=== PATIENT | male | born 1975 | race Caucasian/White ===

== ENCOUNTER 2019-08-02 11:40 | Outpatient (CLI) | payer SELFPAY ==
--- NOTE | 2019-08-02 11:45 | XR_ITS ---
WS: [id number] LUMBAR SPINE: 3 VIEWS TECHNIQUE: AP, lateral and L5-S1 spot. HISTORY: low back and leg pain COMPARISON: None available. Posterior lumbar vertebral bodies demonstrate mild straightening and loss of the normal lordosis. Mod erate endplate osteophytes and hypertrophic bone changes. Facet arthropathy at L5-S1. No fractures or bone destruction. Mild narrowing of the LEFT SI joint. XR/XR lumbar spine 2-3V* [id number] IMPRESSION: 1. Facet joint arthropathy at L5-S1 is moderate. 2. No vertebral body fracture. 3. Moderate spondylosis.
== END 2019-08-02 11:41 | disposition home or self-care (01) ==
LOC: RAD 11:42 → WPI 11:43
PROVIDERS: PCP Registered Nurse; Visit Provider Registered Nurse
DX: M47.896 Other spondylosis, lumbar region (principal); M54.5 Low back pain
CPT/HCPCS: 72100; 80053; 80061; 82306; 82607; 84443; 85025

== ENCOUNTER 2022-05-06 10:25 | Inpatient (IN) | payer MEDICAID, SELFPAY ==
[2022-05-06] VITALS (12 sets, daily range): BP systolic 110–181; BP diastolic 70–103; PULSE 83–103; RESP 16–18; TEMP 36.1–36.9; O2SAT 93–98; BMI 55.9
--- NOTE | 2022-05-06 11:49 | ED_ITS ---
HPI - General Adult General: Chief complaint: Abdominal Pain Stated complaint: abd pain, n/v Time Seen by Provider: 05/06/22 11:38 History of Present Illness: Patient is a 47-year-old male with history obesity, HTN presenting to emergency with complaints of midepigastric abdominal pain since 10 AM this morning. Patient states that he has had intermittent burning pain in the abdomen since then. Patient reports significant nausea, diaphoresis with multiple episodes of vomiting earlier today.. Patient denies any hemoptysis, diarrhea, melena hematochezia. Patient has no acute complaints. Denies any exertional chest pain or dyspnea, cough, runny nose sore throat fever or chills. Patient has no prior abdominal surgeries. Patient denies any history of renal colic. Onset:10am Duration:ongoing Location:home Severity:moderate Associated symptoms: Reports nausea and vomiting; Deny chest pain, dyspnea, rash or palpitations Review of Systems Const: Reports: other (+diaphoresis and clamminess); Denies: fever(s) or chills Eyes: Denies: change in vision ENMT: Denies: mouth pain Card: Denies: chest pain or palpitations Resp: Denies: dyspnea or non-productive cough GI: Reports: abdominal pain (+midepigastric abd pain), nausea and vomiting; Denies: diarrhea : Denies: dysuria Musc: Denies: extremity pain Skin/Breast: Denies: rash or new lesions Neuro: Denies: weakness in extremities Psych: Reports: other (Normal mood) Brandon/Lymph: Denies: easy bruising PFSH ED PFSH: Medical History (Updated 05/06/22 @ 17:04 by Spenser Gibbons MD) Bronchitis Chronic fatigue disorder Chronic low back pain with sciatica Hypertension Insomnia Major depressive disorder, recurrent, in partial remission Post-traumatic stress disorder, chronic Psychiatric care Surgical History (Updated 05/06/22 @ 17:04 by Spenser Gibbons MD) No pertinent past surgical history Family History Grandfather Stroke Mother Heart problem Mother CHF (congestive heart failure) Social History Smoking and tobacco status: never smoked Second hand smoke exposure: No Alcohol intake: current Alcohol intake frequency: holidays/special occasions only Physical Exam Const: COMMON NORMALS: alert HENMT: COMMON NORMALS: atraumatic HEAD & SCALP: atraumatic MOUTH: moist mucous membranes not abnormal Eye: COMMON NORMALS: EOMs intact bilaterally and conjunctivae normal CONJUNCTIVA: Yes conjunctivae normal Neck/C-Spine: COMMON NORMALS: full ROM and supple Resp: COMMON NORMALS: normal respiratory effort and clear to auscultation bilaterally AUSCULTATION: clear to auscultation bilaterally Cardio: COMMON NORMALS: regular rate RATE: regular rate GI: COMMON NORMALS: Soft to palpation PALPATION: Yes Soft to palpation OTHER: +mild midepigastric TTP. NO guarding rebound, guarding, rigidity. No CVA tenderness to percussion. Neg Cruz/Neg McBurney's point tenderness, no suprabupic tenderness to palpation. Extremity: COMMON NORMALS: full ROM Neuro: SENSORIUM/ORIENTATION: Yes alert MOTOR EXAM: No Abnormal motor strength present and Other motor observations present (no focal motor deficits) Psych: COMMON NORMALS: speech normal SPEECH: Yes normal speech MOOD & AFFECT: Yes euthymic mood Course Vital Signs: Vital signs: Vital Signs Temperature 97.0 F L 05/06/22 10:30 Pulse Rate 97 05/06/22 15:00 Respiratory Rate 17 05/06/22 15:00 Blood Pressure 174/99 05/06/22 15:00 Pulse Oximetry 95 05/06/22 15:00 Oxygen Delivery Me thod 05/06/22 15:00 MDM - General Adult Medical Decision Making Patient is a 47-year-old male with history obesity, HTN presenting to emergency with complaints of midepigastric abdominal pain since 10 AM this morning associated with diaphoresis, nausea and vomiting. On exam, patient has mild epigastric area tenderness palpation. EKG did not show any signs of ischemia. Initial troponin of 23 with a delta <5. Pain improved proved with morphine and nausea with zofran. I performed shared decision making with patient however patient would like to be admitted to hospital for angina-equivalence workup. Disposition: admission Lab Data : 05/06/22 12:10 05/06/22 12:10 Laboratory Results WBC 10.0 10^3/uL (4.0-10.0) 05/06/22 12:10 RBC 5.18 10^6/uL (4.1-5.3) 05/06/22 12:10 Hgb 14.8 g/dL (11.7-16.6) 05/06/22 12:10 Hct 45.3 % (42.0-52.0) 05/06/22 12:10 MCV 87.5 fl (80-94) 05/06/22 12:10 MCH 28.6 pg (28.0-34.0) 05/06/22 12:10 MCHC 32.7 g/dL (30.0-36.0) 05/06/22 12:10 RDW 13.6 % (12.1-15.1) 05/06/22 12:10 Plt Count 193 10^3/cmm (130-400) 05/06/22 12:10 MPV 11.5 fL (7.4-10.4) H 05/06/22 12:10 Neut % (Auto) 88.2 % 05/06/22 12:10 Lymph % (Auto) 7.8 % 05/06/22 12:10 [place] % (Auto) 2.5 % 05/06/22 12:10 Eos % (Auto) 0.3 % 05/06/22 12:10 Baso % (Auto) 0.7 % 05/06/22 12:10 Neut # (Auto) 8.83 10^3/uL (1.8-7.7) H 05/06/22 12:10 Lymph # (Auto) 0.8 10^3/uL (0.8-4.8) 05/06/22 12:10 [place] # (Auto) 0.3 10^3/uL (0.2-0.9) 05/06/22 12:10 Eos # (Auto) 0.0 10^3/uL (0.0-0.8) 05/06/22 12:10 Baso # (Auto) 0.1 10^3/uL (0.0-0.1) 05/06/22 12:10 Nucleated RBC % (auto) 0 % 05/06/22 12:10 Nucleated RBCs # 0.0 /100WBC 05/06/22 12:10 Sodium 138 mmol/L (136-145) 05/06/22 12:10 Potassium 4.6 mmol/L (3.5-5.1) 05/06/22 12:10 Chloride 100 mmol/L (98-107) 05/06/22 12:10 Carbon Dioxide 26 mmol/L (22-29) 05/06/22 12:10 Anion Gap 16.6 (5-19) 05/06/22 12:10 BUN 11 mg/dL (6-20) 05/06/22 12:10 Creatinine 0.8 mg/dL (0.7-1.2) 05/06/22 12:10 GFR Calculation 103.2 mL/min (90-130) 05/06/22 12:10 Glucose 132 mg/dL (65-115) H 05/06/22 12:10 Calculated Osmolality 287 mOsm/kg (285-295) 05/06/22 12:10 Calcium 9.3 mg/dL (8.5-10.5) 05/06/22 12:10 Total Bilirubin 0.4 mg/dL (0.15-1.2) 05/06/22 12:10 AST 13 U/L (0-40) 05/06/22 12:10 ALT 16 U/L (0-41) 05/06/22 12:10 Alkaline Phosphatase 59 U/L (40-130) 05/06/22 12:10 Troponin T Baseline 23 ng/L (0-15) H 05/06/22 12:10 Troponin T 120 Minute 23.41 ng/L (0-15) H 05/06/22 14:52 Delta Troponin T 0.41 ABS# (0-10) 05/06/22 14:52 Total Protein 7.3 g/dL (6.6-8.7) 05/06/22 12:10 Albumin 4.4 g/dL (3.5-5.2) 05/06/22 12:10 Globulin 2.9 g/dL (1.3-4.6) 05/06/22 12:10 Lipase 131 U/L (13-60) H 05/06/22 12:10 Urine Color Yellow (Yellow) 05/06/22 13:55 Urine Appearance Clear (CLEAR) 05/06/22 13:55 Urine pH 7 (5-7) 05/06/22 13:55 Ur Specific [place] 1.010 (1.005-1.030) 05/06/22 13:55 Urine Protein Trace (Negative) 05/06/22 13:55 Urine Glucose (UA) Norm (Normal) 05/06/22 13:55 Urine Ketones 2+ (Negative) H 05/06/22 13:55 Urine Blood Neg (Negative) 05/06/22 13:55 Urine Nitrate Negative (Negative) 05/06/22 13:55 Urine Bilirubin Neg (Negative) 05/06/22 13:55 Urine Urobilinogen Neg mg/dL (Negative) 05/06/22 13:55 Ur Leukocyte Esterase Negative (Negative) 05/06/22 13:55 Urine RBC None /hpf (0-2) 05/06/22 13:55 Urine WBC None /hpf (0-5) 05/06/22 13:55 Ur Squamous Epith Cells None /hpf (0-5) 05/06/22 13:55 Amorphous Sediment Not Reportable 05/06/22 13:55 Urine Bacteria None /hpf (NONE) 05/06/22 13:55 Urine Mucus 1+ /hpf 05/06/22 13:55 Discharge Plan Discharge Patient Disposition: Admitted As Inpatient Clinical Impression: Abdominal pain, Nausea & vomiting, Diaphoresis, Morbid obesity Condition: Stable Discharge Diet: Advance as tolerated Discharge Activity: Increase activity as tolerated Coding Level of Care Code ED Vp Director Of Creative Strategy for [place] Fwd Exam Comprehensive
[2022-05-06 12:16] LABS: Basophils # 0.1 10^3/uL (0.0-0.1); Basophils % 0.7 %; Eosinophils % 0.3 %; Hematocrit 45.3 % (42.0-52.0); Hemoglobin 14.8 g/dL (11.7-16.6); Lymphocytes # 0.8 10^3/uL (0.8-4.8); Lymphocytes % 7.8 %; Mean Corpuscular HGB Conc 32.7 g/dL (30.0-36.0); Mean Corpuscular Hemoglobin 28.6 pg (28.0-34.0); Mean Corpuscular Volume 87.5 fl (80-94); Mean Platelet Volume 11.5 fL (7.4-10.4); Monocytes # 0.3 10^3/uL (0.2-0.9); Monocytes % 2.5 %; Neutrophils # 8.83 10^3/uL (1.8-7.7); Neutrophils % 88.2 %; Nucleated Red Blood Cells % 0 %; Platelet Count 193 10^3/cmm (130-400); Red Blood Count 5.18 10^6/uL (4.1-5.3); Red Cell Distribution Width 13.6 % (12.1-15.1)
[2022-05-06] MEDS: lidocaine 2% viscous 15 ML, aluminum-mag hydrox-simethicon 30 ML, sucralfate oral liq 1 GM PO (12:36)
[2022-05-06 12:37] LABS: Troponin(5th) Baseline 23 ng/L (0-15)
[2022-05-06 12:39] LABS: Alanine Aminotransferase 16 U/L (0-41); Albumin Level 4.4 g/dL (3.5-5.2); Alkaline Phosphatase 59 U/L (40-130); Anion Gap 16.6 (5-19); Aspartate Amino Transferase 13 U/L (0-40); Blood Urea Nitrogen 11 mg/dL (6-20); Calcium 9.3 mg/dL (8.5-10.5); Carbon Dioxide 26 mmol/L (22-29); Chloride 100 mmol/L (98-107); Globulin 2.9 g/dL (1.3-4.6); Glomerular Filtration Rate 103.2 mL/min (90-130); Glucose 132 mg/dL (65-115); Lipase 131 U/L (13-60); Osmolality Calculated 287 mOsm/kg (285-295); Potassium 4.6 mmol/L (3.5-5.1); Sodium 138 mmol/L (136-145); Total Bilirubin 0.4 mg/dL (0.15-1.2); Total Protein 7.3 g/dL (6.6-8.7)
[2022-05-06] MEDS: sodium chloride 0.9% 1,000 ML 999 ML IV (12:57)
[2022-05-06] MEDS: ondansetron 2 mg/ML SDV 2 mL 4 MG IVP (12:58)
[2022-05-06] MEDS: famotidine 20 mg/2 mL INJ IVP (12:58)
--- NOTE | 2022-05-06 14:00 | ECG_ITS ---
[facility] Test Date: 2022-05-06 Pat Name: Abilio Adams Department: Room: Gender: Male [employer]: : 1975 Requested By: Shahana Bernard Order Number: [id number] Ron MD: Sonia Zapien M.D. Measurements Intervals Snyder Rate: 97 P: 14 NH: 172 QRS: 78 QRSD: 103 T: 55 QT: 345 QTc: 440 Interpretive Statements SINUS RHYTHM POSSIBLE LEFT ATRIAL ENLARGEMENT [-0.1mV P-WAVE IN V1/V2] NONSPECIFIC T-WAVE ABNORMALITY No previous ECG available for comparison Electronically Signed On 05-06-2022 20:57:05 CDT by Sonia Zapien M.D. [id number]
[2022-05-06 14:06] LABS: Add Urine Microscopic? YES; Bilirubin Urine Neg (Negative); Blood Urine Neg (Negative); Glucose Urine UA Norm (Normal); Ketones Urine 2+ (Negative); Leukocyte Esterase Urine Negative (Negative); Nitrate Urine Negative (Negative); Protein Urine Trace (Negative); Urine Appearance Clear (CLEAR); Urine Color Yellow (Yellow); Urobilinogen Urine Neg (Negative); pH Urine 7 (5-7)
[2022-05-06 14:15] LABS: Add Urine Culture? No; Mucus Urine 1+ /hpf
[2022-05-06] MEDS: morphine 4 mg/mL SDV 1 mL IVP (14:35)
[2022-05-06 15:43] LABS: Troponin 5 2HR 23.41 ng/L (0-15)
[2022-05-06 15:44] LABS: Troponin 5 2HR Delta 0.41 ABS# (0-10)
--- NOTE | 2022-05-06 16:46 | PM.HP ---
Providers/Chief Complaint Primary Care Provider: PETROS Mo Chief Complaint: abd pain, n/v History of Present Illness Abilio Adams is a 47 year old male with history of GERD, morbid obesity, no history of CHF, coronary disease presented today for chief complaint of epigastric pain. Patient is stating that he ate to his floor last night and this morning he woke up with epigastric pain, he broke into sweat with his pain, his pain was achy in nature and epigastric region he would not call with chest pain it was not associated with shortness of breath however he had 3 episodes of emesis and 1 episode of diarrhea. No one else is sick at home he has not eaten out. No recent fever or COVID-related symptoms. He is not vaccinated. His symptoms persisted until he received GI cocktail in the ER and famotidine he also received 1 L normal saline Hospitalist has been requested to evaluate him for chest pain however patient is not complaining of any pain at all his troponins are not showing any significant delta EKG unremarkable D-dimer unremarkable Review of Systems Const: Denies: fever(s) Eyes: Denies: change in vision ENMT: Denies: throat pain Card: Denies: chest pain Resp: Denies: dyspnea GI: Reports: nausea, vomiting and diarrhea : Denies: flank pain Musc: Denies: neck pain Skin/Breast: Denies: rash Neuro: Denies: headache(s) Psych: Denies: anxiety Endo: Denies: polyuria Brandon/Lymph: Denies: easy bruising All/Imm: Denies: urticaria Medications/Allergies Home Medications Medication Instructions Recorded Confirmed Last Taken Type buspirone 15 mg tablet 15 mg PO BID #60 tabs 03/22/22 05/06/22 Unknown Rx acetaminophen 500 mg tablet 500 mg PO Q6H PRN pain 5 days #20 05/06/22 Unknown Rx tabs calcium carbonate 1,000 1 tab PO TID PRN abdominal pain 7 05/06/22 Unknown Rx mg-simethicone 60 mg chewable days #21 tabs tablet (Maalox Advanced) famotidine 20 mg tablet (Pepcid) 20 mg PO BID PRN abdominal pain 10 05/06/22 Unknown Rx days #20 tabs jdxhyefu-khl-iazzr acid 300 1 tab PO DAILY 05/06/22 05/06/22 Unknown History mcg-lycopene 600 mcg-lutein 300 mcg tablet (Centrum Silver Men) ondansetron 4 mg disintegrating 4 mg PO TID PRN nausea and 05/06/22 Unknown Rx tablet vomiting 4 days #12 tabs sertraline 100 mg tablet 200 mg PO QAM 05/06/22 05/06/22 Unknown History Allergies Allergy/AdvReac Type Severity Reaction Status Date / Time No Known Allergies Allergy Verified 05/06/22 12:17 PFSH Acute PFSH: Medical History (Updated 05/06/22 @ 17:04 by Spenser Gibbons MD) Bronchitis Chronic fatigue disorder Chronic low back pain with sciatica Hypertension Insomnia Major depressive disorder, recurrent, in partial remission Post-traumatic stress disorder, chronic Psychiatric care Surgical History (Updated 05/06/22 @ 17:04 by Spenser Gibbons MD) No pertinent past surgical history Family History Grandfather Stroke Mother Heart problem Mother CHF (congestive heart failure) Social History Smoking and tobacco status: never smoked Second hand smoke exposure: No Alcohol intake: current Alcohol intake frequency: holidays/special occasions only Vitals/I&O/Wt Last Vital Signs Temp 97.0 F L 05/06/22 10:30 Pulse 97 05/06/22 15:00 Resp 17 05/06/22 15:00 BP 174/99 05/06/22 15:00 Pulse Ox 95 05/06/22 15:00 O2 Del Method 05/06/22 15:00 Weight last 48 hrs Weight 176.901 kg Physical Exam Narrative: Morbidly obese male Currently hemodynamic stable No active chest pain Abdomen soft Morbidly obese no currently on room air Awake and alert Nonfocal neuro exam Pleasant cooperative No signs of edema Patient is comfortable in his bed Looks well-hydrated at the bedside Data : 05/06/22 12:10 05/06/22 12:10 A&P Assessment and plan (1) Abdominal pain: (2) Nausea & vomiting: (3) Diaphoresis: (4) Morbid obesity: (5) Hypertension: Qualifiers: Hypertension type: essential hypertension Qualified Code(s): I10 - Essential (primary) hypertension Plan Viral gastroenteritis Troponin stable at 23 No significant delta EKG unremarkable We will give him Protonix 40 mg IV twice daily Check echo for any wall motion abnormality plan to discharge him tomorrow if clinically remains stable EKG unremarkable, D-dimer unremarkable Lipase 731, check triglyceride Essential hypertension I will add chlorthalidone and lisinopril Regular diet DVT prophylaxis Lovenox Full code Discharge tomorrow Attestations Medical Necessity Statement*: Anticipating discharge within 48 hours Time Spent in Patient Care: 40 Coding Level of Care Code Acute Air Conditioning Coil Assembler for Chg Fwd Diagnoses Abdominal pain R10.9 Nausea & vomiting R11.2 Diaphoresis R61 Morbid obesity E66.01 Hypertension I10 Hypertension type: essential hypertension
--- NOTE | 2022-05-06 16:52 | XR_ITS ---
WS: [id number] Portable AP upright chest, 05/06/2022 Clinical Data: abd pain Comparison: Portable chest, 03/21/2012. Findings: No nodules, masses or effusions are seen. The heart is slightly enlarged. The pulmonary vas cularity is not increased. No pneumonia or pneumothorax is seen. The aortic arch and descending thora cic aorta show mild tortuosity. XR/XR chest 1V portable [id number] Impression: Cardiomegaly and atherosclerosis.
--- NOTE | 2022-05-06 17:09 | CTR_ITS ---
PROCEDURE INFORMATION: Exam: CT Abdomen And Pelvis Without Contrast Exam date and time: 05/06/2022 6:27 PM Age: 47 years old Clinical indication: Pain; Other: Below sternum; Additional info: Epi pain today only TECHNIQUE: Imaging protocol: Computed tomography of the abdomen and pelvis without contrast. Radiation optimization: All CT scans at this facility use at least one of these dose optimization techniques: automated exposure control; mA and/or kV adjustment per patient size (includes targeted exams where dose is matched to clinical indication); or iterative reconstruction. COMPARISON: CR XR chest 1V portable [id number] 05/06/2022 5:02 PM RADIATION DOSE METRICS: Total DLP (mGy-cm): 1696.01 FINDINGS: Lungs: No acute findings within the included lung bases. Liver: Normal. Gallbladder and bile ducts: Normal. No calcified stones. No ductal dilation. Pancreas: Normal. No ductal dilation. Spleen: Normal. No splenomegaly. Adrenal glands: Normal. No mass. Kidneys and ureters: Focal 8 mm left lower pole renal calculus. No ureteral calculi or hydroureteronephrosis bilaterally 3rd Stomach and bowel: Normal. No obstruction. No inflammatory changes appreciated. Appendix: No evidence of appendicitis. Intraperitoneal space: No free air. No significant fluid collection. Vasculature: No abdominal aortic aneurysm. Lymph nodes: Unremarkable. No enlarged lymph nodes. Urinary bladder: Bladder partially filled. No stones. Reproductive: Unremarkable as visualized. Bones/joints: Unremarkable. No acute fracture. Soft tissues: Unremarkable. CT/CT abdomen pelvis wo con [id number] IMPRESSION: 1. No acute findings. 2. 8 mm nonobstructing left renal calculus.
[2022-05-06] MEDS: acetaminophen 500 mg Tablet PO ×2 (18:29→22:22)
[2022-05-06] MEDS: chlorthalidone 25 mg Tablet 12.5 MG PO (20:12)
[2022-05-06] MEDS: lisinopril 20 mg Tablet PO (20:13)
[2022-05-06] MEDS: pantoprazole 40 mg SDV IVP (20:14)
[2022-05-06] MEDS: enoxaparin 40 mg/0.4 mL Syringe SUBCUT (20:16)
[2022-05-06 20:24] LABS: Thyroid Stimulating Hormone 2.56 uIU/mL (0.27-4.20); Triglycerides 126 mg/dL (0-150)
[2022-05-06] MEDS: BuSPIRONE 10 mg Tablet 15 MG PO (21:20)
[2022-05-07 00:11] VITALS: BP 145/84; PULSE 83; RESP 18; TEMP 36.6; O2SAT 95
[2022-05-07 03:29] LABS: Estmated Average Glucose 108; Hemoglobin A1C 5.4 % (4.0-6.0)
[2022-05-07 03:41] LABS: Anion Gap 14.7 (5-19); Blood Urea Nitrogen 12 mg/dL (6-20); Calcium 9.1 mg/dL (8.5-10.5); Carbon Dioxide 26 mmol/L (22-29); Chloride 101 mmol/L (98-107); Glomerular Filtration Rate 103.2 mL/min (90-130); Glucose 98 mg/dL (65-115); Osmolality Calculated 286 mOsm/kg (285-295); Potassium 3.7 mmol/L (3.5-5.1); Sodium 138 mmol/L (136-145)
[2022-05-07 04:44] VITALS: BP 133/82; PULSE 73; RESP 18; TEMP 37.1; O2SAT 94
[2022-05-07] MEDS: sertraline 100 mg Tablet 200 MG PO (05:09)
[2022-05-07] MEDS: perflutren protein-a microsphr 0.22 mg/mL SDV 3 mL IV (05:54)
[2022-05-07 07:40] VITALS: PULSE 73; RESP 18; O2SAT 94
[2022-05-07 07:56] VITALS: BP 150/89; PULSE 67; RESP 18; TEMP 36.9; O2SAT 95
[2022-05-07] MEDS: pantoprazole 40 mg SDV IVP (08:47)
[2022-05-07] MEDS: chlorthalidone 25 mg Tablet 12.5 MG PO (08:49)
[2022-05-07] MEDS: BuSPIRONE 10 mg Tablet 15 MG PO (08:50)
[2022-05-07] MEDS: sennosides-docusate Tablet 1 TAB PO (08:52)
[2022-05-07] MEDS: lisinopril 20 mg Tablet PO (08:52)
--- NOTE | 2022-05-07 09:41 | PM.DCS ---
Discharge Providers Date of Admission: 05/06/22 16:38 Date of Discharge: May 07, 2022 Attending Provider at Admission: Cheryl Garcia MD Attending Provider at Discharge: Spenser Gibbons MD Primary Care Provider: PETROS Mo Diagnoses at Discharge Discharge Diagnosis (1) Abdominal pain: Status: Acute (2) Nausea & vomiting: Status: Acute (3) Diaphoresis: Status: Acute (4) Morbid obesity: Status: Acute (5) Hypertension: Status: Acute Qualifiers: Hypertension type: essential hypertension Qualified Code(s): I10 - Essential (primary) hypertension Reason for Visit Reason for Visit: abd pain, n/v Hospital Course Hospital Course 47-year-old male who presented to hospital with chief complaint epigastric pain after eating heavy meal the night before. No chest pain at all no shortness of breath. He was diagnosed with hypertensive urgency added lisinopril and chlorthalidone. Troponin without signal delta. Echo has been requested. He was monitored overnight, no recurrence of symptoms, epigastric pain resolved with GI cocktail and Protonix. In case of persistent symptoms he can get outpatient stress test via PCP. Physical Exam Narrative: Awake and alert Morbid obese Normotensive No focal neuro exam findings Currently on room air Awake and alert S1, S2 Discharge Data Studies Completed and Pending Completed Studies During Hospitalization Category Date Time Status CT abdomen pelvis wo con [id number] Stat Cat Scan 05/06/22 17:09 Completed XR chest 1V portable [id number] Stat Exams 05/06/22 16:52 Completed Pending at discharge Category Date Time Status CV. echo wo/w contrast [id number] Routine Ultrasound 05/07/22 19:18 Taken Radiology Impressions Chest X-Ray 05/06/22 16:52 Impression: Cardiomegaly and atherosclerosis. Abdomen/Pelvis CT 05/06/22 17:09 IMPRESSION: 1. No acute findings. 2. 8 mm nonobstructing left renal calculus. Laboratory Results WBC 10.0 10^3/uL (4.0-10.0) 05/06/22 12:10 RBC 5.18 10^6/uL (4.1-5.3) 05/06/22 12:10 Hgb 14.8 g/dL (11.7-16.6) 05/06/22 12:10 Hct 45.3 % (42.0-52.0) 05/06/22 12:10 MCV 87.5 fl (80-94) 05/06/22 12:10 MCH 28.6 pg (28.0-34.0) 05/06/22 12:10 MCHC 32.7 g/dL (30.0-36.0) 05/06/22 12:10 RDW 13.6 % (12.1-15.1) 05/06/22 12:10 Plt Count 193 10^3/cmm (130-400) 05/06/22 12:10 MPV 11.5 fL (7.4-10.4) H 05/06/22 12:10 Neut % (Auto) 88.2 % 05/06/22 12:10 Lymph % (Auto) 7.8 % 05/06/22 12:10 [place] % (Auto) 2.5 % 05/06/22 12:10 Eos % (Auto) 0.3 % 05/06/22 12:10 Baso % (Auto) 0.7 % 05/06/22 12:10 Neut # (Auto) 8.83 10^3/uL (1.8-7.7) H 05/06/22 12:10 Lymph # (Auto) 0.8 10^3/uL (0.8-4.8) 05/06/22 12:10 [place] # (Auto) 0.3 10^3/uL (0.2-0.9) 05/06/22 12:10 Eos # (Auto) 0.0 10^3/uL (0.0-0.8) 05/06/22 12:10 Baso # (Auto) 0.1 10^3/uL (0.0-0.1) 05/06/22 12:10 Nucleated RBC % (auto) 0 % 05/06/22 12:10 Nucleated RBCs # 0.0 /100WBC 05/06/22 12:10 Sodium 138 mmol/L (136-145) 05/07/22 02:41 Potassium 3.7 mmol/L (3.5-5.1) 05/07/22 02:41 Chloride 101 mmol/L (98-107) 05/07/22 02:41 Carbon Dioxide 26 mmol/L (22-29) 05/07/22 02:41 Anion Gap 14.7 (5-19) 05/07/22 02:41 BUN 12 mg/dL (6-20) 05/07/22 02:41 Creatinine 0.8 mg/dL (0.7-1.2) 05/07/22 02:41 GFR Calculation 103.2 mL/min (90-130) 05/07/22 02:41 Glucose 98 mg/dL (65-115) 05/07/22 02:41 Estimat Average Glucose 108 05/07/22 02:41 Hemoglobin A1c 5.4 % (4.0-6.0) 05/07/22 02:41 Calculated Osmolality 286 mOsm/kg (285-295) 05/07/22 02:41 Calcium 9.1 mg/dL (8.5-10.5) 05/07/22 02:41 Magnesium 2.0 mg/dL (1.7-2.3) 05/07/22 02:41 Total Bilirubin 0.4 mg/dL (0.15-1.2) 05/06/22 12:10 AST 13 U/L (0-40) 05/06/22 12:10 ALT 16 U/L (0-41) 05/06/22 12:10 Alkaline Phosphatase 59 U/L (40-130) 05/06/22 12:10 Troponin T Baseline 23 ng/L (0-15) H 05/06/22 12:10 Troponin T 120 Minute 23.41 ng/L (0-15) H 05/06/22 14:52 Delta Troponin T 0.41 ABS# (0-10) 05/06/22 14:52 Total Protein 7.3 g/dL (6.6-8.7) 05/06/22 12:10 Albumin 4.4 g/dL (3.5-5.2) 05/06/22 12:10 Globulin 2.9 g/dL (1.3-4.6) 05/06/22 12:10 Triglycerides 126 mg/dL (0-150) 05/06/22 11:50 Lipase 131 U/L (13-60) H 05/06/22 12:10 TSH 2.56 uIU/mL (0.27-4.20) 05/06/22 11:50 Urine Color Yellow (Yellow) 05/06/22 13:55 Urine Appearance Clear (CLEAR) 05/06/22 13:55 Urine pH 7 (5-7) 05/06/22 13:55 Ur Specific [place] 1.010 (1.005-1.030) 05/06/22 13:55 Urine Protein Trace (Negative) 05/06/22 13:55 Urine Glucose (UA) Norm (Normal) 05/06/22 13:55 Urine Ketones 2+ (Negative) H 05/06/22 13:55 Urine Blood Neg (Negative) 05/06/22 13:55 Urine Nitrate Negative (Negative) 05/06/22 13:55 Urine Bilirubin Neg (Negative) 05/06/22 13:55 Urine Urobilinogen Neg mg/dL (Negative) 05/06/22 13:55 Ur Leukocyte Esterase Negative (Negative) 05/06/22 13:55 Urine RBC None /hpf (0-2) 05/06/22 13:55 Urine WBC None /hpf (0-5) 05/06/22 13:55 Ur Squamous Epith Cells None /hpf (0-5) 05/06/22 13:55 Amorphous Sediment Not Reportable 05/06/22 13:55 Urine Bacteria None /hpf (NONE) 05/06/22 13:55 Urine Mucus 1+ /hpf 05/06/22 13:55 Vitals Last Vital Signs Temp 98.5 F 05/07/22 07:56 Pulse 67 05/07/22 07:56 Resp 18 05/07/22 07:56 BP 150/89 05/07/22 07:56 Pulse Ox 95 05/07/22 07:56 O2 Del Method 05/07/22 07:56 Discharge Plan Discharge Patient Disposition: Home Condition: Stable Prescriptions: New acetaminophen 500 mg tablet 500 mg PO Q6H PRN (Reason: pain) 5 Days Qty: 20 0RF Pepcid 20 mg tablet 20 mg PO BID PRN (Reason: abdominal pain) 10 Days Qty: 20 0RF ondansetron 4 mg tablet,disintegrating 4 mg PO TID PRN (Reason: nausea and vomiting) 4 Days Qty: 12 0RF Maalox Advanced 1,000-60 mg tablet,chewable 1 tab PO TID PRN (Reason: abdominal pain) 7 Days Qty: 21 0RF lisinopril 20 mg Tablet 20 mg PO DAILY Qty: 60 2RF chlorthalidone 25 mg tablet 25 mg PO DAILY Qty: 90 0RF Continued buspirone 15 mg tablet 15 mg PO BID Qty: 60 0RF sertraline 100 mg tablet 200 mg PO QAM Centrum Silver Men 300-600-300 mcg Tablet 1 tab PO DAILY Discharge Orders: Discharge Order (Routine); Ordered 05/07/22 Ordered By: Spenser Gibbons Referrals: Elisabeth Barton FNP [Primary Care Provider] - Discharge Diet: Advance as tolerated Discharge Activity: Increase activity as tolerated Patient Instructions: Abdominal Pain (ED), Opioid Safety Activity Restrictions/Additional Instructions: Please come back if you have any worsening abdominal pain, fever or chills, nausea or vomiting, diarrhea, blood in the stool, inability hold down liquid or solids, or any new concerning complaints. Discharge Attestations Time Spent in Discharge Care*: less than 30 min Quality Metrics Clinical Quality Measures [ No reported AMI, CVA or VTE this stay] Coding Level of Care Code Acute Chg FW DC note Diagnoses Abdominal pain R10.9 Nausea & vomiting R11.2 Diaphoresis R61 Morbid obesity E66.01 Hypertension I10 Hypertension type: essential hypertension
--- NOTE | 2022-05-07 09:52 | PC.NURSE ---
Appointment was scheduled for 06/02 due to patient being a new patient in the clinic and that is the first available appointmnet they had.
[2022-05-07 10:05] VITALS: BP 150/89; PULSE 67; RESP 18; TEMP 36.9; O2SAT 95
--- NOTE | 2022-05-07 10:17 | PC.NURSE ---
Patient discharged at 1017. Left with spouse at side. Instructions and education given about follow up appointments. New medication instructions given and advised they were sent to [facility]. Patient verbalized understanding of all instructions IV removed and intact.
--- NOTE | 2022-05-07 10:19 | PC.CHAP ---
Pastoral Care Encounter/Spiritual Assessment Type of Contact [] Declined bottom crane operator visit [] Patient/Family/Request visit [] Outpatient visit [] Follow-up visit [] Physician referral [] Code/Alert [x] Routine visit [] Staff referral [] Actively dying [] Patient sleeping [] Family support [] [] Out of room [] Palliative care [] [] Receiving care in room [] Pre-surgical visit [] Trauma [] Long length of stay [] ICU visit [] Other: Relational/Emotional Strength [] Patient feels connected with others/family/visitors/staff [] Distress [] Loneliness/isolation [] Abandonment Spirituality of Patient [x] Person of Deepthi [] Attends Buddhist of their Deepthi [x] Believes in Prayer [] Reads Bible or Islam materials [] There are Spiritual issues to be addressed State Director Interventions [p] Prayer [x] Active listening [] Non-anxious presence [] Spiritual/emotional support [] Crisis/trauma care [] Spiritual counseling [] Bereavement support [] Provided bereavement packet [] Provided Bible/devotional materials [] Provided toy/stuffed animal, coloring book to patient or family member [] Provided Communion [] Anointing/[place] [] Salvation [x] Completed spiritual assessment [] Other: Impact on Illness or Injury [] Angry [] Fearful [] Anxious [] Often cries [] Exhaustion [] Unable to work [] Unable to attend orthodoxy [] Unable to walk/stand [] Unable to read [] Unable to drive [] Unable to eat/drink [] Unable to sleep [] Unable to be with family [] Patient intubated [] Other: Summary Time spent with patient 5 min
--- NOTE | 2022-05-07 19:18 | USCV_ITS ---
Abilio Adams Age: 47 Gender: M : 1975 Exam Date: 05/07/2022 01:35 Ordering Phys: Spenser Gibbons MD Technologist: NALINI Exam Location: [facility] [place] Indication: unstable angina. No history of cardiac intervention per patient. BP: 135 / 74 HR: 66 Rhythm: Sinus Technical Quality: Adequate with [employer] MEASUREMENTS (Male / Female) Normal Values 2D ECHO LV Diastolic Diameter PLAX 5.6 cm 4.2 - 5.9 / 3.9 - 5.3 cm LV Systolic Diameter PLAX 4.5 cm IVS Diastolic Thickness 1.7 cm 0.6 - 1.0 / 0.6 - 0.9 cm IVS Systolic Thickness 2.0 cm LVPW Diastolic Thickness 1.6 cm 0.6 - 1.0 / 0.6 - 0.9 cm LVPW Systolic Thickness 2.0 cm LVOT Diameter 2.3 cm LV Ejection Fraction 2D Teich 41.2 % LV Ejection Fraction MOD 2C 45.9 % LV Ejection Fraction 2C AL 49.3 % LA Diameter 4.9 cm LA Width 4.8 cm LA Height 6.9 cm RA Width 4.6 cm RA Height 5.3 cm Aorta at Sinotubular Diameter 3.0 cm IVC Diameter 1.9 cm M-MODE Aortic Annulus Diameter 3.5 cm LA Ao Ratio MM 1.3 MV E Point Septal Separation 0.8 cm DOPPLER AV Peak Velocity 129.0 cm/s LVOT Peak Velocity 70.0 cm/s AV Area Cont Eq vti 2.7 cm squared AV Area Cont Eq pk 2.3 cm squared MV Area PHT 5.1 cm squared Mitral E to A Ratio 0.9 MV E' Velocity 35.5 cm/s Mitral E to MV E' Ratio 8.8 Mitral E to LV E' Lateral Ratio 9.7 Mitral E to LV E' Septal Ratio 8.1 TV Peak E Velocity 55.0 cm/s PV Peak Velocity 105.0 cm/s RV Acceleration Time 0.1 s RV Ejection Time 0.3 s RV AcT/ET 0.2 FINDINGS Left Ventricle Diffuse hypokinesia left ventricular ejection fraction of 46%. No gross wall motion normalities noted. Right Ventricle The right ventricle is normal in size and function. Right Atrium Mildly increased right atrial size. Left Atrium Mildly increased left atrial size. Mitral Valve Thickened mitral valve. Mild mitral valve regurgitation. Aortic Valve No gross abnormalities noted Tricuspid Valve No gross abnormalities noted Pulmonic Valve Structurally normal pulmonic valve without significant stenosis. There is no pulmonic regurgitation. Pericardium Normal pericardium without effusion. Aorta Normal ascending aorta dimension. IVC Normal inferior vena cava. CONCLUSIONS Diffuse hypokinesia left ventricular ejection fraction of 46%. Mildly dilated LV cavity Mild biatrial enlargement, Thickening of mitral valve with a mild mitral regurgitation. No significant pericardial effusion. No intracardiac masses No similar previous studies are available for comparison Dr Brittani Dc MD [facility] (Electronically Signed) Final Date: 07 May 2022 14:03 S
== END 2022-05-07 10:19 | disposition home or self-care (01) | DRG 392 ==
LOC: ER 16:39 → MEDSURG 18:16
PROVIDERS: Physician Assistant; Admitting Provider Internal Medicine; Emergency Provider Emergency Medicine; PCP Nurse Practitioner Family; Visit Provider Internal Medicine
DX: R10.13 Epigastric pain (principal); Z68.43 Body mass index [BMI] 50.0-59.9, adult; I16.0 Hypertensive urgency; E66.01 Morbid (severe) obesity due to excess calories; R61 Generalized hyperhidrosis; I10 Essential (primary) hypertension; R11.2 Nausea with vomiting, unspecified; K21.9 Gastro-esophageal reflux disease without esophagitis; R94.8 Abnormal results of function studies of other organs and systems; I51.89 Other ill-defined heart diseases
CPT/HCPCS: 36415; 71045; 74176; 80048; 80053; 81001; 83036; 83690; 83735; 84443; 84478; 84484; 85025; 93005; 93306; 96372; C8929; C9113; G0378; J1650; J2270; J2405; J3490; J7030; Q9956

== ENCOUNTER 2023-01-18 13:30 | Emergency (ER) | payer MEDICAID, SELFPAY ==
[2023-01-18 13:33] VITALS: BP 178/85; PULSE 75; RESP 18; TEMP 37.2; O2SAT 100; BMI 49.4
--- NOTE | 2023-01-18 13:37 | XR_ITS ---
WS: [id number] Exam: XR chest 1V portable [id number] Date/Time of Exam: 01/18/2023 1:37 PM Reason For Exam: cp Comparison 05/06/2022. The lungs are clear and fully inflated. Normal cardiomediastinal silhouette and regional bony element s. No pleural effusion. XR/XR chest 1V portable [id number] IMPRESSION: 1. Negative chest.
--- NOTE | 2023-01-18 13:43 | ECG_ITS ---
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 Measurements Intervals [place] Rate: 77 P: 56 NC: 174 QRS: 13 QRSD: 93 T: 8 QT: 360 QTc: 408 Interpretive Statements SINUS RHYTHM NONSPECIFIC T-WAVE ABNORMALITY INTERPRETATION BASED ON A DEFAULT AGE OF 40 YEARS Compared to ECG 05/06/2022 15:23:14 No significant changes Electronically Signed On 01-20-2023 10:02:08 CDT by Brittani Dc M.D. [id number]
[2023-01-18 14:11] LABS: Basophils # 0.1 10^3/uL (0.0-0.1); Basophils % 0.6 %; Eosinophils # 0.1 10^3/uL (0.0-0.8); Eosinophils % 0.5 %; Hematocrit 42.9 % (42.0-52.0); Hemoglobin 14.3 g/dL (11.7-16.6); Lymphocytes # 1.4 10^3/uL (0.8-4.8); Lymphocytes % 12.7 %; Mean Corpuscular HGB Conc 33.3 g/dL (30.0-36.0); Mean Corpuscular Hemoglobin 29.2 pg (28.0-34.0); Mean Corpuscular Volume 87.7 fl (80-94); Mean Platelet Volume 11.4 fL (7.4-10.4); Monocytes # 0.5 10^3/uL (0.2-0.9); Monocytes % 4.4 %; Neutrophils # 9.11 10^3/uL (1.8-7.7); Neutrophils % 81.3 %; Nucleated Red Blood Cells % 0 %; Platelet Count 258 10^3/cmm (130-400); Red Blood Count 4.89 10^6/uL (4.1-5.3); Red Cell Distribution Width 13.2 % (12.1-15.1); White Blood Count 11.2 10^3/uL (4.0-10.0)
[2023-01-18 14:28] LABS: Troponin(5th) Baseline 22 ng/L (0-15)
[2023-01-18 14:32] LABS: Alanine Aminotransferase 19 U/L (0-41); Albumin Level 4.6 g/dL (3.5-5.2); Alkaline Phosphatase 48 U/L (40-130); Aspartate Amino Transferase 21 U/L (0-40); Blood Urea Nitrogen 14 mg/dL (6-20); Calcium 9.1 mg/dL (8.5-10.5); Carbon Dioxide 22 mmol/L (22-29); Chloride 102 mmol/L (98-107); Globulin 2.1 g/dL (1.3-4.6); Glomerular Filtration Rate 103.2 mL/min (90-130); Glucose 113 mg/dL (65-115); Lipase 27 U/L (13-60); Osmolality Calculated 291 mOsm/kg (285-295); Sodium 140 mmol/L (136-145); Total Bilirubin 0.5 mg/dL (0.15-1.2); Total Protein 6.7 g/dL (6.6-8.7)
--- NOTE | 2023-01-18 14:32 | ED_ITS ---
Documented by User: Andres Esparza DO 01/20/23 16:30 HPI - Chest Pain General: Chief Complaint: Chest Pain Stated Complaint: Chest pain Time Seen by Provider: 01/18/23 14:31 Source: patient Mode of arrival: ambulatory History of Present Illness: 47-year-old male presents to the emergency room with complaints of chest pain. He was recently at another local emergency room with elevated blood pressure. They also thought he might have H. pylori. He is complaining of epigastric pain radiating up into his chest. No shortness of breath with it. He has not noticed anything exacerbates that he does state he can run his hand down his sternum into the epigastric area and that relieves the discomfort. No radiation of pain to the neck or arms. MD complaint: chest pain Onset (ago): day(s) Timing of current episode: episodic Prior episodes: No Onset: during rest Pain location: substernal Pain radiation: none Severity: mild Relieving factors: nothing Exacerbating factors: nothing Associated symptoms: Reports abdominal pain; Deny diaphoresis, dyspnea, fever(s), leg edema, nausea, palpitations, sense of impending doom, syncope or vomiting Treatment prior to arrival: none Review of Systems Const: Denies: fever(s), chills, fatigue, malaise or diaphoresis ENMT: Denies: throat pain, ear or mastoid pain, nasal discharge or nasal congestion Card: Reports: chest pain; Denies: palpitations or syncope Resp: Denies: dyspnea GI: Reports: abdominal pain; Denies: nausea or vomiting : Denies: flank pain, dysuria, urinary frequency or urinary urgency Musc: Denies: neck pain or back pain Skin/Breast: Denies: rash or pruritus PFSH ED PFSH: Medical History Abdominal pain Bronchitis Chronic fatigue disorder Chronic low back pain with sciatica Diaphoresis Hypertension Hypertension Insomnia Major depressive disorder, recurrent, in partial remission Morbid obesity Nausea & vomiting Post-traumatic stress disorder, chronic Surgical History No pertinent past surgical history Family History Grandfather Stroke Mother Heart problem Mother CHF (congestive heart failure) Social History Smoking and tobacco status: never smoked Second hand smoke exposure: No Alcohol intake: current Alcohol intake frequency: holidays/special occasions only Physical Exam Const: COMMON NORMALS: no acute distress GENERAL APPEARANCE: cooperative and comfortable ORIENTATION/CONSCIOUSNESS: Yes awake, Yes oriented to person, Yes oriented to place and Yes oriented to time HENMT: COMMON NORMALS: normocephalic, atraumatic and hearing grossly normal bilaterally HEAD & SCALP: normocephalic and atraumatic Resp: COMMON NORMALS: normal respiratory effort, No retractions, No use of accessory muscles and clear to auscultation bilaterally AUSCULTATION: clear to auscultation bilaterally Cardio: COMMON NORMALS: regular rate, regular rhythm and No murmurs present (Cardio) RATE: regular rate RHYTHM: regular rhythm GI: COMMON NORMALS: Soft to palpation and No hepatosplenomegaly present AUS CULTATION: Yes normoactive bowel sounds PALPATION: Yes Soft to palpation, No Tenderness to palpation present (GI), No Guarding due to palpation present (GI) and Yes No hepatosplenomegaly present Extremity: COMMON NORMALS: normal to inspection, capillary refill normal, no clubbing, cyanosis or edema, no calf tenderness and no pedal edema Neuro: SENSORIUM/ORIENTATION: Yes oriented to person, Yes oriented to place and Yes oriented to time Skin: COMMON NORMALS: no rashes or lesions noted GENERAL SKIN EXAM: no rashes or lesions noted Course Vital Signs: Vital signs: Vital Signs Temperature 99.0 F 01/18/23 13:33 Pulse Rate 75 01/18/23 13:33 Respiratory Rate 18 01/18/23 17:08 Blood Pressure 130/81 01/18/23 17:08 Pulse Oximetry 100 01/18/23 13:33 Oxygen Delivery Me thod Room Air 01/18/23 13:33 MDM - Chest Pain Medical Decision Making Care signed out to Dr. José at change of shift. See final notes for diagnosis and disposition. Patient care handoff from Dr. Esparza and received pending discharge of patient. I reviewed laboratory studies and reassess patient. I reviewed imaging studies. On reassessment patient feels improved. Location of pain once again clarified to be more epigastric in nature than chest pain. He is able to tolerate oral intake. Patient does have a number of risk factors for premature coronary artery disease and, while I do not believe that he requires inpatient cardiac testing, I believe outpatient cardiac testing is appropriate and I will place a case management order for this. The results of ED evaluation were discussed with the patient including prescrip tions and/or symptomatic cares (if applicable) including appropriate and responsible use, followup plan, and return precautions. The patient verbalized understanding and felt safe for discharge. Emir José MD Emergency Medicine Lab Data 01/18/23 13:50 01/18/23 13:50 Radiology Impressions Chest X-Ray 01/18/23 13:37 IMPRESSION: 1. Negative chest. Laboratory Results WBC 11.2 10^3/uL (4.0-10.0) H 01/18/23 13:50 RBC 4.89 10^6/uL (4.1-5.3) 01/18/23 13:50 Hgb 14.3 g/dL (11.7-16.6) 01/18/23 13:50 Hct 42.9 % (42.0-52.0) 01/18/23 13:50 MCV 87.7 fl (80-94) 01/18/23 13:50 MCH 29.2 pg (28.0-34.0) 01/18/23 13:50 MCHC 33.3 g/dL (30.0-36.0) 01/18/23 13:50 RDW 13.2 % (12.1-15.1) 01/18/23 13:50 Plt Count 258 10^3/cmm (130-400) 01/18/23 13:50 MPV 11.4 fL (7.4-10.4) H 01/18/23 13:50 Neut % (Auto) 81.3 % 01/18/23 13:50 Lymph % (Auto) 12.7 % 01/18/23 13:50 Esmeralda % (Auto) 4.4 % 01/18/23 13:50 Eos % (Auto) 0.5 % 01/18/23 13:50 Baso % (Auto) 0.6 % 01/18/23 13:50 Neut # (Auto) 9.11 10^3/uL (1.8-7.7) H 01/18/23 13:50 Lymph # (Auto) 1.4 10^3/uL (0.8-4.8) 01/18/23 13:50 Esmeralda # (Auto) 0.5 10^3/uL (0.2-0.9) 01/18/23 13:50 Eos # (Auto) 0.1 10^3/uL (0.0-0.8) 01/18/23 13:50 Baso # (Auto) 0.1 10^3/uL (0.0-0.1) 01/18/23 13:50 Nucleated RBC % (auto) 0 % 01/18/23 13:50 Nucleated RBCs # 0.0 /100WBC 01/18/23 13:50 PT 12.70 SECONDS (12.1-14.9) 01/18/23 13:50 INR 0.92 (0.8-1.2) 01/18/23 13:50 Sodium 140 mmol/L (136-145) 01/18/23 13:50 Potassium 4.0 mmol/L (3.5-5.1) 01/18/23 13:50 Chloride 102 mmol/L (98-107) 01/18/23 13:50 Carbon Dioxide 22 mmol/L (22-29) 01/18/23 13:50 Anion Gap 20.0 (5-19) H 01/18/23 13:50 BUN 14 mg/dL (6-20) 01/18/23 13:50 Creatinine 0.8 mg/dL (0.7-1.2) 01/18/23 13:50 GFR Calculation 103.2 mL/min (90-130) 01/18/23 13:50 Glucose 113 mg/dL (65-115) 01/18/23 13:50 Calculated Osmolality 291 mOsm/kg (285-295) 01/18/23 13:50 Calcium 9.1 mg/dL (8.5-10.5) 01/18/23 13:50 Total Bilirubin 0.5 mg/dL (0.15-1.2) 01/18/23 13:50 AST 21 U/L (0-40) 01/18/23 13:50 ALT 19 U/L (0-41) 01/18/23 13:50 Alkaline Phosphatase 48 U/L (40-130) 01/18/23 13:50 Troponin T Baseline 22 ng/L (0-15) H 01/18/23 13:50 Troponin T 120 Minute 22.57 ng/L (0-15) H 01/18/23 16:00 Delta Troponin T 0.57 ABS# (0-10) 01/18/23 16:00 Total Protein 6.7 g/dL (6.6-8.7) 01/18/23 13:50 Albumin 4.6 g/dL (3.5-5.2) 01/18/23 13:50 Globulin 2.1 g/dL (1.3-4.6) 01/18/23 13:50 Lipase 27 U/L (13-60) 01/18/23 13:50 H. pylori IgG Antibody Negative (Negative) 01/18/23 13:50 Discharge Plan Discharge Patient Disposition: Home Clinical Impression: Abdominal pain, epigastric, Nausea & vomiting Condition: Stable Prescriptions: New Reglan 10 mg tablet 10 mg PO Q6H PRN (Reason: nausea and vomiting) Qty: 30 0RF Rx Instructions: if zofran does not help No Action buspirone 15 mg tablet 15 mg PO BID Qty: 60 0RF sucralfate 100 mg/mL suspension 10 ml PO Q8H pantoprazole 40 mg tablet,delayed release (DR/EC) 40 mg PO DAILY ondansetron 4 mg tablet,disintegrating 4 mg PO Q8H PRN (Reason: Nausea And Vomiting) chlorthalidone 25 mg tablet 12.5 mg PO DAILY sertraline 100 mg tablet 200 mg PO QAM lisinopril 20 mg Tablet 20 mg PO DAILY Qty: 60 2RF Discharge Orders: Discharge ED (Routine); Ordered 01/18/23 Ordered By: Emir José Referrals: Elisabeth Barton FNP [Primary Care Provider] - Discharge Diet: Advance as tolerated and Clear Liquid Discharge Activity: Increase activity as tolerated Patient Instructions: Acute Nausea and Vomiting (ED), Epigastric Pain (ED), Opioid Safety Activity Restrictions/Additional Instructions: Thank you for visiting the emergency department. You were seen and evaluated for epigastric pain. The exact cause of your symptoms is unclear however is likely related to gastritis or other GI cause. I recommend follow-up with your primary care provider and either gastroenterology or general surgery for consideration for endoscopy if not previously performed. Please continue your medications. I will prescribe Reglan for nausea and vomiting if Zofran is ineffective. I will also message case management for further outpatient cardiac testing. Return for anything that you are concerned about and feel needs emergency department evaluation. 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 Documented by User: Emir José MD 01/19/23 04:21 HPI - Chest Pain General: Chief Complaint: Chest Pain Stated Complaint: Chest pain Time Seen by Provider: 01/18/23 14:31 PFSH ED PFSH: Medical History Abdominal pain Bronchitis Chronic fatigue disorder Chronic low back pain with sciatica Diaphoresis Hypertension Hypertension Insomnia Major depressive disorder, recurrent, in partial remission Morbid obesity Nausea & vomiting Post-traumatic stress disorder, chronic Surgical History No pertinent past surgical history Family History Grandfather Stroke Mother Heart problem Mother CHF (congestive heart failure) Social History Smoking and tobacco status: never smoked Second hand smoke exposure: No Alcohol intake: current Alcohol intake frequency: holidays/special occasions only Course Vital Signs: Vital signs: Vital Signs Temperature 99.0 F 01/18/23 13:33 Pulse Rate 75 01/18/23 13:33 Respiratory Rate 18 01/18/23 17:08 Blood Pressure 130/81 01/18/23 17:08 Pulse Oximetry 100 01/18/23 13:33 Oxygen Delivery Me thod Room Air 01/18/23 13:33 MDM - Chest Pain Medical Decision Making Patient care handoff from Dr. Esparza and received pending discharge of patient. I reviewed laboratory studies and reassess patient. I reviewed imaging studies. On reassessment patient feels improved. Location of pain once again clarified to be more epigastric in nature than chest pain. He is able to tolerate oral intake. Patient does have a number of risk factors for premature coronary artery disease and, while I do not believe that he requires inpatient cardiac testing, I believe outpatient cardiac testing is appropriate and I will place a case management order for this. The results of ED evaluation were discussed with the patient including prescriptions and/or symptomatic cares (if applicable) including appropriate and responsible use, followup plan, and return precautions. The patient verbalized understanding and felt safe for discharge. Emir José MD Emergency Medicine Lab Data 01/18/23 13:50 01/18/23 13:50 Radiology Impressions Chest X-Ray 01/18/23 13:37 IMPRESSION: 1. Negative chest. Laboratory Results WBC 11.2 10^3/uL (4.0-10.0) H 01/18/23 13:50 RBC 4.89 10^6/uL (4.1-5.3) 01/18/23 13:50 Hgb 14.3 g/dL (11.7-16.6) 01/18/23 13:50 Hct 42.9 % (42.0-52.0) 01/18/23 13:50 MCV 87.7 fl (80-94) 01/18/23 13:50 MCH 29.2 pg (28.0-34.0) 01/18/23 13:50 MCHC 33.3 g/dL (30.0-36.0) 01/18/23 13:50 RDW 13.2 % (12.1-15.1) 01/18/23 13:50 Plt Count 258 10^3/cmm (130-400) 01/18/23 13:50 MPV 11.4 fL (7.4-10.4) H 01/18/23 13:50 Neut % (Auto) 81.3 % 01/18/23 13:50 Lymph % (Auto) 12.7 % 01/18/23 13:50 Esmeralda % (Auto) 4.4 % 01/18/23 13:50 Eos % (Auto) 0.5 % 01/18/23 13:50 Baso % (Auto) 0.6 % 01/18/23 13:50 Neut # (Auto) 9.11 10^3/uL (1.8-7.7) H 01/18/23 13:50 Lymph # (Auto) 1.4 10^3/uL (0.8-4.8) 01/18/23 13:50 Esmeralda # (Auto) 0.5 10^3/uL (0.2-0.9) 01/18/23 13:50 Eos # (Auto) 0.1 10^3/uL (0.0-0.8) 01/18/23 13:50 Baso # (Auto) 0.1 10^3/uL (0.0-0.1) 01/18/23 13:50 Nucleated RBC % (auto) 0 % 01/18/23 13:50 Nucleated RBCs # 0.0 /100WBC 01/18/23 13:50 PT 12.70 SECONDS (12.1-14.9) 01/18/23 13:50 INR 0.92 (0.8-1.2) 01/18/23 13:50 Sodium 140 mmol/L (136-145) 01/18/23 13:50 Potassium 4.0 mmol/L (3.5-5.1) 01/18/23 13:50 Chloride 102 mmol/L (98-107) 01/18/23 13:50 Carbon Dioxide 22 mmol/L (22-29) 01/18/23 13:50 Anion Gap 20.0 (5-19) H 01/18/23 13:50 BUN 14 mg/dL (6-20) 01/18/23 13:50 Creatinine 0.8 mg/dL (0.7-1.2) 01/18/23 13:50 GFR Calculation 103.2 mL/min (90-130) 01/18/23 13:50 Glucose 113 mg/dL (65-115) 01/18/23 13:50 Calculated Osmolality 291 mOsm/kg (285-295) 01/18/23 13:50 Calcium 9.1 mg/dL (8.5-10.5) 01/18/23 13:50 Total Bilirubin 0.5 mg/dL (0.15-1.2) 01/18/23 13:50 AST 21 U/L (0-40) 01/18/23 13:50 ALT 19 U/L (0-41) 01/18/23 13:50 Alkaline Phosphatase 48 U/L (40-130) 01/18/23 13:50 Troponin T Baseline 22 ng/L (0-15) H 01/18/23 13:50 Troponin T 120 Minute 22.57 ng/L (0-15) H 01/18/23 16:00 Delta Troponin T 0.57 ABS# (0-10) 01/18/23 16:00 Total Protein 6.7 g/dL (6.6-8.7) 01/18/23 13:50 Albumin 4.6 g/dL (3.5-5.2) 01/18/23 13:50 Globulin 2.1 g/dL (1.3-4.6) 01/18/23 13:50 Lipase 27 U/L (13-60) 01/18/23 13:50 H. pylori IgG Antibody Negative (Negative) 01/18/23 13:50 Discharge Plan Discharge Patient Disposition: Home Clinical Impression: Abdominal pain, epigastric, Nausea & vomiting Condition: Stable Prescriptions: New Reglan 10 mg tablet 10 mg PO Q6H PRN (Reason: nausea and vomiting) Qty: 30 0RF Rx Instructions: if zofran does not help No Action buspirone 15 mg tablet 15 mg PO BID Qty: 60 0RF sucralfate 100 mg/mL suspension 10 ml PO Q8H pantoprazole 40 mg tablet,delayed release (DR/EC) 40 mg PO DAILY ondansetron 4 mg tablet,disintegrating 4 mg PO Q8H PRN (Reason: Nausea And Vomiting) chlorthalidone 25 mg tablet 12.5 mg PO DAILY sertraline 100 mg tablet 200 mg PO QAM lisinopril 20 mg Tablet 20 mg PO DAILY Qty: 60 2RF Discharge Orders: Discharge ED (Routine); Ordered 01/18/23 Ordered By: Emir José Referrals: Mick,Elisabeth, OB GYN [Primary Care Provider] - Discharge Diet: Advance as tolerated and Clear Liquid Discharge Activity: Increase activity as tolerated Patient Instructions: Acute Nausea and Vomiting (ED), Epigastric Pain (ED), Opioid Safety Activity Restrictions/Additional Instructions: Thank you for visiting the emergency department. You were seen and evaluated for epigastric pain. The exact cause of your symptoms is unclear however is likely related to gastritis or other GI cause. I recommend follow-up with your primary care provider and either gastroenterology or general surgery for consideration for endoscopy if not previously performed. Please continue your medications. I will prescribe Reglan for nausea and vomiting if Zofran is ineffective. I will also message case management for further outpatient cardiac testing. Return for anything that you are concerned about and feel needs emergency department evaluation. 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Philly Norris
[2023-01-18 14:36] LABS: INR 0.92 (0.8-1.2)
--- NOTE | 2023-01-18 15:37 | ECG_ITS ---
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 Measurements Intervals [employer] Rate: 73 P: 59 CT: 185 QRS: 35 QRSD: 91 T: 49 QT: 368 QTc: 409 Interpretive Statements SINUS RHYTHM WITH SINUS ARRHYTHMIA NONSPECIFIC T-WAVE ABNORMALITY Compared to ECG 01/18/2023 13:43:10 No significant changes Electronically Signed On 01-20-2023 12:27:10 CDT by Brittani Dc M.D. [id number]
[2023-01-18] MEDS: lidocaine 2% viscous 15 ML, aluminum-mag hydrox-simethicon 30 ML, sucralfate oral liq 1 GM PO (15:41)
[2023-01-18] MEDS: promethazine 25 mg/mL SDV 1 mL IM (15:46)
[2023-01-18] MEDS: morphine 4 mg/mL SDV 1 mL 2 MG IVP (15:48)
[2023-01-18] MEDS: sodium chloride 0.9% 1,000 ML 999 ML IV (15:56)
[2023-01-18] MEDS: LORazepam 2 mg/mL INJ 1 mL IVP (15:58)
[2023-01-18] MEDS: haloperidol inj 5 mg/mL INJ 1 mL 2.5 MG IVP (15:59)
[2023-01-18 16:21] LABS: H. Pylori IgG Antibody Negative (Negative)
[2023-01-18 16:33] LABS: Troponin 5 2HR 22.57 ng/L (0-15)
[2023-01-18 16:35] LABS: Troponin 5 2HR Delta 0.57 ABS# (0-10)
[2023-01-18 17:08] VITALS: BP 130/81; RESP 18
--- NOTE | 2023-01-19 10:45 | PC.SOCIAL ---
Order for sestamibi/lexiscan faxed to [facility] scheduling at this time.
== END 2023-01-18 17:46 | disposition home or self-care (01) ==
PROVIDERS: Emergency Medicine; Family Medicine; Emergency Provider Emergency Medicine; PCP Nurse Practitioner Family
DX: R10.13 Epigastric pain (principal); R11.2 Nausea with vomiting, unspecified; I10 Essential (primary) hypertension
CPT/HCPCS: 36415; 71045; 80053; 83690; 84484; 85025; 85610; 86677; 93005; 96372; 96374; 96375; 99285; J1630; J2060; J2270; J2550; J7030

== ENCOUNTER 2023-11-22 13:53 | Emergency (ER) | payer MEDICAID, SELFPAY ==
[2023-11-22 14:02] VITALS: BP 186/123; PULSE 113; RESP 16; TEMP 36.6; O2SAT 94
[2023-11-22 14:16] LABS: Basophils # 0.1 10^3/uL (0.0-0.1); Basophils % 0.9 %; Eosinophils % 0.2 %; Hematocrit 47.8 % (37-53); Lymphocytes # 1.5 10^3/uL (0.8-4.8); Lymphocytes % 13.2 %; Mean Corpuscular HGB Conc 32.2 g/dL (30-55); Mean Corpuscular Hemoglobin 28.7 pg (27-33); Mean Platelet Volume 11.7 fL (7.4-10.4); Monocytes # 0.4 10^3/uL (0.2-0.9); Monocytes % 3.5 %; Neutrophils # 9.24 10^3/uL (1.8-7.7); Neutrophils % 81.8 %; Nucleated Red Blood Cells % 0 %; Platelet Count 213 10^3/cmm (157-399); Red Blood Count 5.37 10^6/uL (3.85-5.65); Red Cell Distribution Width 13.1 % (12.1-15.1); White Blood Count 11.28 10^3/uL (3.29-11.43)
[2023-11-22 14:32] LABS: Alanine Aminotransferase 28 U/L (0-41); Albumin Level 4.2 g/dL (3.5-5.2); Alkaline Phosphatase 56 U/L (40-130); Aspartate Amino Transferase 17 U/L (0-40); Blood Urea Nitrogen 14 mg/dL (6-20); Carbon Dioxide 23 mmol/L (22-29); Chloride 98 mmol/L (98-107); Creatinine Clr Calc Pharmacy 169.5235; Globulin 3.1 g/dL (1.3-4.6); Glomerular Filtration Rate 102.7 mL/min (90-130); Glucose 132 mg/dL (65-115); Lipase 59 U/L (13-60); Osmolality Calculated 280 mOsm/kg (285-295); Sodium 134 mmol/L (136-145); Total Bilirubin 0.3 mg/dL (0.15-1.2); Total Protein 7.3 g/dL (6.6-8.7)
--- NOTE | 2023-11-22 14:37 | ED_ITS ---
HPI - Abdominal Pain 2 General: Chief Complaint: Abdominal Pain Stated Complaint: upper abd pain, vomiting Time Seen by Provider: 11/22/23 14:35 History of Present Illness: 48-year-old male presents emergency depa rtment with complaints of epigastric pain. He states he was seen approximately 1 year ago and was told that he had a peptic ulcer and has not followed up with GI to receive a endoscopy. He states this morning he has been unable to keep any fluids down. He states he has had recurrent nausea and vomiting. He states in the past when he had similar episodes he did receive Reglan and GI cocktail which improved his symptoms tremendously. He denies hematic emesis or hematochezia. He denies chest pain or shortness of breath at present. He states that he did have a coughing episode last night and felt like he was going to pass out after the coughing episode. He states he is recently seen a neurologist Dr. Rushing and discussed difficulties with his memory loss. Associated Symptoms: Reports nausea and vomiting; Denies hematochezia, hematemesis and melena Review of Systems 2 General: Reports: 10 or more systems reviewed and unremarkable except in HPI and below GI: Reports: abdominal pain, nausea and vomiting; Denies: hematemesis, hematochezia or melena PFSH ED 2 PFSH: Medical History Hypertension Morbid obesity Diaphoresis Nausea & vomiting Abdominal pain Insomnia Hypertension Bronchitis Post-traumatic stress disorder, chronic Major depressive disorder, recurrent, in partial remission Chronic low back pain with sciatica Chronic fatigue disorder Surgical History No pertinent past surgical history Family History Grandfather Stroke Mother Heart problem Mother Congestive heart failure (CHF) Social History Smoking and tobacco/nicotine status: current every day tobacco/nicotine user pipe Second hand smoke exposure: No Alcohol intake: never Physical Exam 2 Narrative: EXAM NARRATIVE: General: Alert, no acute distress. Morbidly obese, Skin: Warm, dry, Intact. Head: Normocephalic, atraumatic. Neck: Supple, trachea midline. Eye: Extraocular movements are intact. PERRLA Ears, nose, mouth and throat: mucosa moist. Cardiovascular: Regular, Normal peripheral perfusion. Respiratory: Lungs are clear to auscultation, respirations are non-labored, breath sounds are equal, Symmetrical chest wall expansion. Gastrointestinal: Soft, Nontender, Non distended, Normal bowel sounds. Musculoskeletal: Normal ROM, no deformity. Neurological: Alert and oriented, No focal neurological deficit observed. Psychiatric: Cooperative, appropriate mood & affect. Course 2 Reevaluation(s): Reevaluation #1: Reevaluation of the patient after he received the second GI cocktail he states immediate relief. He has had no additional episodes of nausea or vomiting. Time: 15:33 Vital Signs: Vital signs: Vital Signs Temperature 97.9 F 11/22/23 14:02 Pulse Rate 110 H 11/22/23 15:49 Respiratory Rate 22 H 11/22/23 15:12 Blood Pressure 173/98 11/22/23 15:49 Pulse Oximetry 95 11/22/23 15:49 Oxygen Delivery Me thod Room Air 11/22/23 15:12 MDM - Abdominal Pain Medical Decision Making Physical exam completed and documented I did review the patient's previous medical records, CBC was obtained and his hemoglobin was 15.4 hematocrit 47.8 platelets 213. CMP was obtained and demonstrated a sodium of 134 glucose 132 and osmolality at 280 the remainder was unremarkable. Patient did receive Zofran and a GI cocktail and reevaluation of the patient demonstrated complete resolution of his epigastric discomfort. I suspect his discomfort is secondary to gastritis versus peptic ulcer disease. I did discuss the importance of follow-up with general surgery/GI for a upper endoscopy and did provide them the contact information so that he could contact the general surgeon for additional evaluation and to obtain his EGD. I will prescribe him Carafate and discharge instructions. It does appear that the patient was scheduled to have an EGD on 02/15/2023 and per the patient and his spouse does not recall ever obtaining the EGD. Medical Records I reviewed the patient's medical records. Lab Data I reviewed the patient's lab results. 11/22/23 14:12 11/22/23 14:12 Labs/Radiology: Laboratory Results WBC 11.28 10^3/uL (3.29-11.43) 11/22/23 14:12 RBC 5.37 10^6/uL (3.85-5.65) 11/22/23 14:12 Hgb 15.40 g/dL (11.27-16.99) 11/22/23 14:12 Hct 47.8 % (37-53) 11/22/23 14:12 MCV 89.0 fl (82-101) 11/22/23 14:12 MCH 28.7 pg (27-33) 11/22/23 14:12 MCHC 32.2 g/dL (30-55) 11/22/23 14:12 RDW 13.1 % (12.1-15.1) 11/22/23 14:12 Plt Count 213 10^3/cmm (157-399) 11/22/23 14:12 MPV 11.7 fL (7.4-10.4) H 11/22/23 14:12 Neut % (Auto) 81.8 % 11/22/23 14:12 Lymph % (Auto) 13.2 % 11/22/23 14:12 [place] % (Auto) 3.5 % 11/22/23 14:12 Eos % (Auto) 0.2 % 11/22/23 14:12 Baso % (Auto) 0.9 % 11/22/23 14:12 Neut # (Auto) 9.24 10^3/uL (1.8-7.7) H 11/22/23 14:12 Lymph # (Auto) 1.5 10^3/uL (0.8-4.8) 11/22/23 14:12 [place] # (Auto) 0.4 10^3/uL (0.2-0.9) 11/22/23 14:12 Eos # (Auto) 0.0 10^3/uL (0.0-0.8) 11/22/23 14:12 Baso # (Auto) 0.1 10^3/uL (0.0-0.1) 11/22/23 14:12 Nucleated RBC % (auto) 0 % 11/22/23 14:12 Nucleated RBCs # 0.0 /100WBC 11/22/23 14:12 Sodium 134 mmol/L (136-145) L 11/22/23 14:12 Potassium 3.8 mmol/L (3.5-5.1) 11/22/23 14:12 Chloride 98 mmol/L (98-107) 11/22/23 14:12 Carbon Dioxide 23 mmol/L (22-29) 11/22/23 14:12 Anion Gap 16.8 (5-19) 11/22/23 14:12 BUN 14 mg/dL (6-20) 11/22/23 14:12 Creatinine 0.8 mg/dL (0.7-1.2) 11/22/23 14:12 GFR Calculation 102.7 mL/min (90-130) 11/22/23 14:12 Glucose 132 mg/dL (65-115) H 11/22/23 14:12 Calculated Osmolality 280 mOsm/kg (285-295) L 11/22/23 14:12 Calcium 9.0 mg/dL (8.5-10.5) 11/22/23 14:12 Total Bilirubin 0.3 mg/dL (0.15-1.2) 11/22/23 14:12 AST 17 U/L (0-40) 11/22/23 14:12 ALT 28 U/L (0-41) 11/22/23 14:12 Alkaline Phosphatase 56 U/L (40-130) 11/22/23 14:12 Total Protein 7.3 g/dL (6.6-8.7) 11/22/23 14:12 Albumin 4.2 g/dL (3.5-5.2) 11/22/23 14:12 Globulin 3.1 g/dL (1.3-4.6) 11/22/23 14:12 Lipase 59 U/L (13-60) 11/22/23 14:12 No radiology studies performed this visit Discharge Plan Discharge Patient Disposition: Home Clinical Impression: Gastritis Qualifiers: Gastritis type: unspecified gastritis Chronicity: acute Gastritis bleeding: w ithout bleeding Qualified Code(s): K29.00 - Acute gastritis without bleeding GERD (gastroesophageal reflux disease) Qualifiers: Esophagitis bleeding: without hemorrhage Condition: Stable Prescriptions: New Carafate 1 gram tablet 1 g PO TID 28 Days Qty: 84 0RF ondansetron HCl 4 mg tablet 4 mg PO Q6H PRN (Reason: nausea and vomiting) Qty: 14 0RF No Action lisinopril 20 mg tablet 20 mg PO DAILY Qty: 60 2RF venlafaxine 75 mg tablet 75 mg PO DAILY galantamine 4 mg tablet 4 mg PO BID Qty: 60 3RF Rx Instructions: administer with AM and PM meals chlorthalidone 25 mg tablet 12.5 mg PO DAILY Discharge Orders: Discharge ED (Routine); Ordered 11/22/23 Ordered By: Abilio Ocampo Referrals: Lobito Zhu MD [Physician] - Barton,PETROS Barber [Primary Care Provider] - Discharge Diet: Usual diet Discharge Activity: Resume usual activity Patient Instructions: Opioid Safety, Pain Management Activity Restrictions/Additional Instructions: Activity Restrictions/Additional Instructions: Thank you for choosing [facility] for your healthcare needs today. Please realize that you were seen in the Emergency Department and that we are providing you with an emergency medical screening exam and this may not be a complete and all inclusive of all the testing and or medical work-up that you may need to determine your ailment or severity of your illness. It is very important that you follow-up as instructed with your Primary care provider or Specialist for additional evaluation and to discuss your medical treatment plan. Coding Level of Care Code ED E Marketing Specialist for Philly Norris
[2023-11-22 14:40] LABS: Anion Gap 16.8 (5-19); Potassium 3.8 mmol/L (3.5-5.1)
[2023-11-22] MEDS: lidocaine 2% viscous 15 ML, aluminum-mag hydrox-simethicon 30 ML, sucralfate oral liq 1 GM PO ×2 (15:09→15:25)
[2023-11-22 15:12] VITALS: BP 195/125; PULSE 107; RESP 22; O2SAT 96
[2023-11-22] MEDS: ondansetron 2 mg/ML SDV 2 mL 4 MG IVP (15:13)
[2023-11-22 15:49] VITALS: BP 173/98; PULSE 110; O2SAT 95
== END 2023-11-22 15:51 | disposition home or self-care (01) ==
PROVIDERS: Emergency Provider Internal Medicine; PCP Nurse Practitioner Family
DX: K29.00 Acute gastritis without bleeding (principal); K21.9 Gastro-esophageal reflux disease without esophagitis; F17.290 Nicotine dependence, other tobacco product, uncomplicated; I10 Essential (primary) hypertension
CPT/HCPCS: 36415; 80053; 83690; 85025; 96374; 99284; J2405

== ENCOUNTER 2024-01-03 10:18 | Day surgery (SDC) | payer MEDICAID, SELFPAY ==
--- NOTE | 2024-01-03 08:30 | W.PM.OPSUD ---
Surgery/Procedure H&P Update DATE OF PROCEDURE: January 03, 2024 DATE H&P PERFORMED: 12/14/23 H&P UPDATE INFORMATION: I have reviewed H&P completed within last 30 days, I have examined patient prior to procedure, No changes to prior documentation and H&P is in [facility] EMR on date indicated PLANNED PROCEDURE: Operation Date: 01/03/24 11:30 Proposed Procedures p EGD 73878, 60652, G0105, K21.9, Z12.11(Not Applicable) - Lobito Zhu MD s Colonoscopy(Not Applicable) - Lobito Zhu MD
[2024-01-03 10:36] VITALS: BP 171/90; PULSE 100; RESP 16; TEMP 36.5; O2SAT 94; BMI 48.7
[2024-01-03] MEDS: sodium chloride 0.9% 1,000 ML 30 ML IV (10:43)
--- NOTE | 2024-01-03 10:46 | P.ANESASSM_ITS ---
Pre-Anesthetic Assessment Height/Weight: Height 1.78 m Weight 154.221 kg Temp Pulse Resp BP Pulse Ox O2 Del Method 97.7 F 100 16 171/90 94 Room Air 01/03/24 10:36 01/03/24 10:36 01/03/24 10:36 01/03/24 10:36 01/03/24 10:36 01/03/24 10:36 Operation Date: 01/03/24 11:30 Proposed Procedures p EGD 42596, 57171, G0105, K21.9, Z12.11(Not Applicable) - Lobito Zhu MD s Colonoscopy(Not Applicable) - Lobito Zhu MD Familial anesthetic complications: none Was Beta Marisol taken within 24 hours: N/A Was Clonidine taken within 24 hours: N/A Last intake: Intake Last Liquid Date 01/02/24 Last Liquid Time 21:00 Last Solid Date 01/01/24 Last Solid Time 19:00 Social No alcohol and No tobacco Exam alert, oriented x 3, clear to auscultation bilaterally and regular rate & rhythm Airway Submandibular: within normal limits Cervical ROM: within normal limits Mallampati: Class II Dentition: full CV/HEM Congestive Heart Failure (EF 46%) GI Gastroesophageal Reflux Disease Metabolic Morbid Obesity Neuropsych Anxiety and Depression Anesthetic Plan ASA status: 3 Anesthesia: MAC Medications/Allergies Home Medications Medication Instructions Recorded Confirmed Last Taken Type chlorthalidone 25 mg tablet 12.5 mg PO DAILY 01/18/23 01/03/24 01/02/24 History venlafaxine 75 mg tablet 75 mg PO DAILY 10/19/23 01/03/24 01/02/24 History ondansetron HCl 4 mg tablet 4 mg PO Q6H PRN nausea and 11/22/23 12/29/23 Unknown Rx vomiting #14 tabs Allergies Allergy/AdvReac Type Severity Reaction Status Date / Time No Known Allergies Allergy Verified 01/18/23 13:33 Current Medications Generic Name Dose Route Start Last Admin Trade Name Freq PRN Reason Stop Dose Admin Sodium Chloride 1,000 mls @ 30 mls/hr 01/03/24 10:30 01/03/24 10:43 Sodium Chloride 0.9% IV 30 mls/hr .Q24H HANANE Administration PFSH Anesthesia Medical History Hypertension Morbid obesity Diaphoresis Nausea & vomiting Abdominal pain Insomnia Hypertension Bronchitis Post-traumatic stress disorder, chronic Major depressive disorder, recurrent, in partial remission Chronic low back pain with sciatica Chronic fatigue disorder Surgical History No pertinent past surgical history Family History Grandfather Stroke Mother Heart problem Mother Congestive heart failure (CHF) Social History (Updated 12/14/23 @ 08:[address]) Smoking and tobacco/nicotine status: current every day tobacco/nicotine user (Marijuana) pipe Second hand smoke exposure: No Alcohol intake: never Substance/Drug Use: current Data Anesthesia Cardiac Studies: 2 Echocardiogram 05/07/22
[2024-01-03 12:27] VITALS: BP 113/69; PULSE 110; RESP 12; TEMP 36.3; O2SAT 92
[2024-01-03 12:30] VITALS: BP 131/78; PULSE 108; RESP 12; O2SAT 95
[2024-01-03 12:40] VITALS: BP 127/83; PULSE 90; RESP 18; O2SAT 96
[2024-01-03 12:50] VITALS: BP 145/94; PULSE 88; RESP 18; O2SAT 95
--- NOTE | 2024-01-03 14:08 | ANE.PACU2 ---
Inpatient post-anesthesia follow up: Airway intact: Yes Vital signs: Temperature 97.4 F Pulse Rate 88 Respiratory Rate 18 Blood Pressure 145/94 Pulse Oximetry 95 Oxygen Delivery Me thod Room Air Oxygen Flow Rate 3 Fraction of Inspir ed Oxygen Hydration adequate: Yes Nausea and vomiting: No Pain level: 2 Mental status: Baseline
== END 2024-01-03 13:10 | disposition home or self-care (01) ==
PROVIDERS: PCP Nurse Practitioner Family; Visit Provider Surgery
PROC: 0DJ08ZZ Inspection of Upper Intestinal Tract, Via Natural or Artificial Opening Endoscopic (ICD-10-PCS; CPT 43235; principal; 2024-01-03 11:30)
PROC: 0DJD8ZZ Inspection of Lower Intestinal Tract, Via Natural or Artificial Opening Endoscopic (ICD-10-PCS; CPT 45378; 2024-01-03 11:30)
DX: Z12.11 Encounter for screening for malignant neoplasm of colon (principal); K21.9 Gastro-esophageal reflux disease without esophagitis; K29.50 Unspecified chronic gastritis without bleeding; I50.9 Heart failure, unspecified; E66.01 Morbid (severe) obesity due to excess calories; Z68.42 Body mass index [BMI] 45.0-49.9, adult; F17.200 Nicotine dependence, unspecified, uncomplicated; I11.0 Hypertensive heart disease with heart failure
CPT/HCPCS: 43239; 88305; G0121; J2704; J7030

== ENCOUNTER 2024-02-07 20:00 | Outpatient (CLI) | payer MEDICAID, SELFPAY | END 2024-02-07 20:01 | disposition home or self-care (01) | LOC: SLEEP 02-08 01:10 | PROVIDERS: PCP Nurse Practitioner Family; Visit Provider Specialist | DX: G47.10 Hypersomnia, unspecified (principal); G31.84 Mild cognitive impairment of uncertain or unknown etiology | CPT/HCPCS: 95810 ==

== ENCOUNTER → 2024-04-03 13:35 | Outpatient (BNVA) | payer MEDICAID, SELFPAY | PROVIDERS: PCP Nurse Practitioner Family; Visit Provider Orthopaedic Surgery | DX: M54.2 Cervicalgia (principal) | CPT/HCPCS: 72050 ==

== ENCOUNTER 2024-05-08 09:34 | Outpatient (CLI) | payer MEDICAID, SELFPAY ==
--- NOTE | 2024-05-08 09:30 | MR_ITS ---
WS: [id number] MRI CERVICAL SPINE NONCONTRAST TECHNIQUE: Sagittal T1, T2 and STIR imaging. Axial T2, gradient, and fiesta imaging. CLINICAL INFORMATION: neck pain COMPARISON: Outside CT 03/31/2024. No report available. FINDINGS: Straightening of the normal cervical lordosis. Alignment is similar to 02/14 RIGHT paracentral disc osteophyte protrusion C6-C7 with moderate to severe central canal stenosis wit h indentation on the cervical cord. C2-C3: Mild facet arthropathy. C3-C4: Moderate RIGHT facet arthropathy with slight RIGHT facet synovitis. Moderate RIGHT bony forami nal narrowing. Spinal canal and LEFT foramen are patent. Tiny shallow central disc osteophyte protrus ion with slight contact of the cervical cord. C4-C5: Tiny LEFT paracentral disc osteophyte protrusion with slight contact of the cervical cord. Mil d facet arthropathy. Mild LEFT greater than RIGHT bony foraminal narrowing. C5-C6: Central disc osteophyte protrusion with mild central canal stenosis. Slight contact of the cer vical cord. Moderate LEFT and mild RIGHT bony foraminal narrowing. Uncovertebral joint hypertrophy. M oderate facet arthropathy. C6-C7: RIGHT paracentral disc osteophyte protrusion with indentation on the cervical cord with flatte zeinab. Moderate to severe central canal stenosis. Moderate to severe LEFT greater than RIGHT bony fora mary narrowing. Mild facet arthropathy. Uncovertebral joint hypertrophy. C7-T1: Tiny RIGHT paracentral disc osteophyte protrusion. Spinal canal and foramen are patent. Mild f acet arthropathy. Visualized brain stem structures: Normal. Prevertebral soft tissues: Normal. MR/MR cervical spin wo con* [id number] IMPRESSION: 1. Straightening of the normal cervical lordosis. 2. RIGHT paracentral disc osteophyte protrusion C6-7 with moderate to severe c entral canal stenosis. Impingement on RIGHT ventral cervical cord with mild fla ttening. Slight myelomalacia in the cervical cord at this level. 3. Moderate to severe bilateral bony foraminal narrowing at C6-7. 4. Mild central canal stenosis C5-C6 with small central disc osteophyte protru sheryl. 5. Moderate RIGHT C3-4 bony foraminal narrowing with slight RIGHT facet synovi tis. 6. Moderate LEFT C5-C6 bony foraminal narrowing.
== END 2024-05-08 09:35 | disposition home or self-care (01) ==
LOC: RAD 09:34
PROVIDERS: PCP Nurse Practitioner Family; Visit Provider Orthopaedic Surgery
DX: M99.61 Osseous and subluxation stenosis of intervertebral foramina of cervical region (principal); M50.31 Other cervical disc degeneration, high cervical region; M50.322 Other cervical disc degeneration at C5-C6 level; M25.78 Osteophyte, vertebrae
CPT/HCPCS: 72141

== ENCOUNTER → 2024-05-22 13:36 | Outpatient (BNVA) | payer MEDICAID, SELFPAY | PROVIDERS: PCP Nurse Practitioner Family; Visit Provider Orthopaedic Surgery | DX: Z01.818 Encounter for other preprocedural examination (principal) | CPT/HCPCS: 36415; 80053; 81001; 85025 ==

== ENCOUNTER → 2024-05-30 09:11 | Outpatient (BNVA) | payer MEDICAID, SELFPAY | PROVIDERS: PCP Nurse Practitioner Family; Visit Provider Family Medicine | DX: Z01.818 Encounter for other preprocedural examination (principal) | CPT/HCPCS: 81003 ==

== ENCOUNTER 2024-06-13 06:30 | Day surgery (SDC) | payer MEDICAID, SELFPAY ==
[2024-06-13] VITALS (20 sets, daily range): BP systolic 110–170; BP diastolic 63–103; PULSE 68–89; RESP 14–20; TEMP 36.1–36.4; O2SAT 91–100
--- NOTE | 2024-06-13 | XR_ITS ---
WS: [id number] Exam: XR cervical spine 3V* [id number] Date/Time of Exam: 06/13/2024 12:00 AM Reason For Exam: PIERRE PICS AP and lateral intraoperative C-arm images of the cervical spine are submitted. Images are obtained f or intraoperative visualization.
[2024-06-13] MEDS: sodium chloride 0.9% 1,000 ML 30 ML IV (07:05)
--- NOTE | 2024-06-13 07:22 | ANES.PREANE2 ---
Pre-Anesthetic Assessment Height/Weight: Height 1.78 m Weight 158.757 kg Temp Pulse Resp BP Pulse Ox O2 Del Method 97 F L 84 18 145/103 95 Room Air 06/13/24 06:46 06/13/24 06:46 06/13/24 06:46 06/13/24 06:46 06/13/24 06:46 06/13/24 06:46 Preop Diagnosis: Cervical stenosis with radiculopathy Operation Date: 06/13/24 08:10 Proposed Procedures p Anterior Cervical Discectomy & Fusion ACDF w/ Anterior Interbody Fusion w/ Cage w/ Instrumentation w/ Allograft w/ Navigation(Not Applicable) - Flako Bello, DO Familial anesthetic complications: None Was Beta Marisol taken within 24 hours: N/A Was Clonidine taken within 24 hours: N/A Last intake: Intake Last Liquid Date 06/12/24 Last Liquid Time 23:00 Last Solid Date 06/12/24 Last Solid Time 18:00 Social Tobacco and No alcohol Exam alert, oriented x 3, clear to auscultation bilaterally and regular rate & rhythm Airway Mallampati: Class IV Dentition: full CV/HEM Congestive Heart Failure (EF 46%) and Hypertension Metabolic Morbid Obesity Anesthetic Plan ASA status: 3 Anesthesia: General Risk of > 500 ml blood loss (7ml/kg in children): No Medications/Allergies Home Medications Medication Instructions Recorded Confirmed Last Taken Type chlorthalidone 25 mg tablet 12.5 mg PO DAILY 01/18/23 06/13/24 06/12/24 History venlafaxine 75 mg tablet 75 mg PO DAILY 10/19/23 06/13/24 06/12/24 History venlafaxine 37.5 mg 37.5 mg PO DAILY 05/30/24 06/13/24 06/12/24 History capsule,extended release 24 hr (Effexor XR) Bone Growth Stimulator #1 ea 06/04/24 06/13/24 Unknown Rx hydroxyzine HCl 10 mg tablet 10 mg PO 1XD PRN Anxiety 06/12/24 06/13/24 06/05/24 History methocarbamol 500 mg tablet 500 mg PO TID 06/13/24 06/13/24 06/12/24 History Allergies Allergy/AdvReac Type Severity Reaction Status Date / Time No Known Allergies Allergy Verified 05/30/24 09:16 Current Medications Generic Name Dose Route Start Last Admin Trade Name Freq PRN Reason Stop Dose Admin Sodium Chloride 1,000 mls @ 30 mls/hr 06/13/24 06:45 06/13/24 07:05 Sodium Chloride 0.9% IV 06/14/24 06:44 30 mls/hr .Q24H HANANE Administration PFSH Anesthesia Medical History Hypertension Morbid obesity Diaphoresis Nausea & vomiting Abdominal pain Insomnia Hypertension Bronchitis Post-traumatic stress disorder, chronic Major depressive disorder, recurrent, in partial remission Chronic low back pain with sciatica Chronic fatigue disorder Surgical History No pertinent past surgical history Family History Grandfather Stroke Mother Heart problem Mother Congestive heart failure (CHF) Social History Smoking and tobacco/nicotine status: never used tobacco/nicotine Second hand smoke exposure: No Alcohol intake: never Substance/Drug Use: current Data Anesthesia Cardiac Studies: Echocardiogram 05/07/22
--- NOTE | 2024-06-13 07:57 | W.PM.OPSUD ---
Surgery/Procedure H&P Update DATE OF PROCEDURE: June 13, 2024 DATE H&P PERFORMED: 05/30/24 H&P UPDATE INFORMATION: I have reviewed H&P completed within last 30 days, I have examined patient prior to procedure and No changes to prior documentation PREOP DIAGNOSIS: Cervical stenosis with radiculopathy PLANNED PROCEDURE: Operation Date: 06/13/24 08:10 Proposed Procedures p Anterior Cervical Discectomy & Fusion ACDF w/ Anterior Interbody Fusion w/ Cage w/ Instrumentation w/ Allograft w/ Navigation(Not Applicable) - Flako Bello DO
[2024-06-13] MEDS: ceFAZolin 3,000 MG in sodium chloride 0.9% (plus) 100 ML 200 MG IV (08:45)
[2024-06-13] MEDS: lidocaine-epi 1% 20 mL INJ INJECTION (09:15)
--- NOTE | 2024-06-13 10:40 | PM.OP ---
Operative Report Date of procedure: June 13, 2024 Pre-op diagnosis: Cervical spondylosis with myelopathy Post-op diagnosis: same Procedure done: 1. Anterior diskectomy C5/6 2. Anterior discectomy C6/7 3. Insertion of cage C5/6 4. Insertion of Cage C6/7 5. Instrumentation with anterior plate from C5-C7 6. Use of allograft Surgeon: Flako Bello DO Estimated blood loss (mL): 25 Procedure: 1. Anterior diskectomy C5/6 2. Anterior discectomy C6/7 3. Insertion of cage C5/6 4. Insertion of Cage C6/7 5. Instrumentation with anterior plate from C5-C7 6. Use of allograft The patient was taken to the operating room, where he underwent general endotracheal anesthesia without complications. He was then positioned supine on the operating table, and all areas of impingement were well padded. The arms were carefully padded and tucked at his sides. A roll was placed between the shoulder blades.. An x-ray was done to determine the appropriate level for the skin incision. The entire neck was then sterilely prepped and draped in the usual fashion. Neuromonitoring was attached prior to prepping. A transverse skin incision was made and carried down to the platysma muscle. This was then split in line with its fibers. Blunt dissection was carried down medial to the carotid sheath and lateral to the trachea and esophagus until the anterior cervical spine was visualized. A needle was placed into a disc and an x-ray was done to determine its location. The longus colli muscles were then elevated bilaterally with the electrocautery unit. Self-retaining retractors were placed deep to the longus colli muscle. Attention was brought to the C5-6 level that was confirmed on x-ray. A caspar pin was placed into the C5 vertebrae and the C6 vertebrae. The disk space was then distracted. The microscope was then brought in. A radical anterior discectomies were performed at C5/6. This included complete removal of the anterior annulus, nucleus, and posterior annulus. The posterior longitudinal ligament was removed as were the posterior osteophytes. Foraminotomies were then accomplished bilaterally. This was done using a high speed get, kerrison rongeurs and curretes Once all of this was accomplished, the curved currette was used to check for any residual compression. The central canal was wide open as were the foramen. A high-speed bur was used to remove the cartilaginous endplates above and below the interspace. Bleeding cancellous bone was exposed. The disc space were measured and appropriate size cage were placed sterilely onto the field. Allograft graft was packed into the cages. The cage was then placed and there was good juxtaposition against the bleeding decorticated surfaces and good distraction of each interspace. Attention was brought to the next interspace. The Roosevelt pins were removed. Bone wax was used to prevent any bleeding from occurring at the pin sites. Attention was brought to the C6-7 level that was confirmed on x-ray. A caspar pin was placed into the C6 vertebrae and the C7 vertebrae. The disk space was then distracted. The microscope was then brought in. A radical anterior discectomies were performed at C6/7. This included complete removal of the anterior annulus, nucleus, and posterior annulus. The posterior longitudinal ligament was removed as were the posterior osteophytes. Foraminotomies were then accomplished bilaterally. This was done using a high speed get, kerrison rongeurs and curretes Once all of this was accomplished, the curved currette was used to check for any residual compression. The central canal was wide open as were the foramen. A high-speed bur was used to remove the cartilaginous endplates above and below the interspace. Bleeding cancellous bone was exposed. The disc space were measured and appropriate size cage were placed sterilely onto the field. Allograft graft was packed into the cages. The cage was then placed and there was good juxtaposition against the bleeding decorticated surfaces and good distraction of each interspace. The Roosevelt pins were removed. Bone wax was used to prevent any bleeding from occurring at the pin sites. The appropriate size anterior cervical locking plate was chosen and bent into gentle lordosis. Two screws were then placed into each of the vertebral bodies at C5, C6 and C7. There was excellent purchase. A final x-ray was done confirming good position of the hardware and Cages. The locking screws were then applied, also with excellent purchase. Following a final copious irrigation, there was good hemostasis and no dural leaks. The carotid pulse was strong. The wounds were then closed in layers using 2-0 Vicryl suture for the platysma muscle, 2-0 Vicryl suture for the subcutaneous tissue, and 4-0 monocryl suture in a subcuticular skin closure. Glue was placed followed by application of a sterile dressing. The drain was hooked to bulb suction. A soft collar was applied. The patient was then carefully returned to the supine position on his hospital bed where he was reversed and extubated and taken to the recovery room having tolerated the procedure well.
[2024-06-13] MEDS: fentaNYL 50 mcg/mL INJ 2mL IVP ×2 (11:05→11:17)
[2024-06-13] MEDS: HYDROmorphone 1 mg/mL INJ 1 mL 0.5 MG IVP (11:28)
[2024-06-13] MEDS: HYDROcodone-acetaminophen 5-325 mg Tablet 1 TAB PO (12:31)
--- NOTE | 2024-06-13 12:50 | ANE.PACU2 ---
Inpatient post-anesthesia follow up: Airway intact: Yes Vital signs: Temperature 97.5 F Pulse Rate 82 Respiratory Rate 20 Blood Pressure 144/94 Pulse Oximetry 95 Oxygen Delivery Me thod Room Air Oxygen Flow Rate 2 Fraction of Inspir ed Oxygen Hydration adequate: Yes Nausea and vomiting: No Pain level: 1 Mental status: Baseline
== END 2024-06-13 12:53 | disposition home or self-care (01) ==
PROVIDERS: PCP Nurse Practitioner Family; Visit Provider Orthopaedic Surgery
PROC: 0RB30ZZ Excision of Cervical Vertebral Disc, Open Approach (ICD-10-PCS; CPT 22551; principal; 2024-06-13 08:10)
DX: M47.12 Other spondylosis with myelopathy, cervical region (principal); I11.0 Hypertensive heart disease with heart failure; I50.9 Heart failure, unspecified; E66.01 Morbid (severe) obesity due to excess calories; Z68.43 Body mass index [BMI] 50.0-59.9, adult
CPT/HCPCS: 20930; 22551; 22552; 22845; 22853 ×2; 72040; 76000; C1713; C1763; C9359; J0690; J1100; J1171; J2250; J2405; J2704; J3010; J3490; J7030

== ENCOUNTER → 2024-08-07 13:42 | Outpatient (BNVA) | payer MEDICAID, SELFPAY | PROVIDERS: PCP Nurse Practitioner Family; Visit Provider Orthopaedic Surgery | DX: M54.2 Cervicalgia (principal) | CPT/HCPCS: 72040 ==

== ENCOUNTER → 2024-11-08 14:21 | Outpatient (BNVA) | payer MEDICAID, SELFPAY | PROVIDERS: PCP Nurse Practitioner Family; Visit Provider Orthopaedic Surgery | DX: Z98.1 Arthrodesis status (principal) | CPT/HCPCS: 72040 ==

== ENCOUNTER → 2025-05-02 12:51 | Outpatient (BNVA) | payer MEDICAID, SELFPAY | PROVIDERS: PCP Nurse Practitioner Family; Visit Provider Orthopaedic Surgery | DX: Z98.1 Arthrodesis status (principal); Z47.89 Encounter for other orthopedic aftercare | CPT/HCPCS: 72040 ==

== ENCOUNTER 2025-05-06 15:48 | Outpatient (CLI) | payer MEDICAID, SELFPAY | END 2025-05-06 15:49 | disposition home or self-care (01) | LOC: SLEEP 15:49 | PROVIDERS: PCP Nurse Practitioner Family; Visit Provider Nurse Practitioner Family | DX: I50.9 Heart failure, unspecified (principal); G47.10 Hypersomnia, unspecified | CPT/HCPCS: 94762 ==

== ENCOUNTER 2025-05-26 11:12 | Emergency (ER) | payer MEDICAID, SELFPAY ==
--- NOTE | 2025-05-26 11:13 | XRR_ITS ---
PROCEDURE INFORMATION: Exam: XR Chest Exam date and time: 05/26/2025 1:01 PM Age: 50 years old Clinical indication: Shortness of breath; Additional info: SOB TECHNIQUE: Imaging protocol: Radiologic exam of the chest. Views: 1 view. COMPARISON: CR XR chest 1V portable [id number] 01/18/2023 12:46 PM FINDINGS: Lungs: No consolidation. Pleural spaces: No pleural effusion. No pneumothorax. Heart/Mediastinum: Cardiomegaly. Bones/joints: Surgical hardware noted in the cervical spine. XR/XR chest 1V portable [id number] IMPRESSION: No acute findings.
[2025-05-26 11:15] VITALS: BP 142/101; PULSE 111; RESP 20; TEMP 36.8; O2SAT 95
--- OUTSIDE RECORDS SUMMARY | 2025-05-26 11:15 | XMS_ITS | Clinical Summary ---
Author Organization [facility] Address [address] [place] [address] Phone Care Team Providers Care Community Planning Technician Name Role Phone Non-Staff, Physician Primary Care Provider Unava ilable Social History Tobacco Use Types Packs/Day Years Used Date Smoking Tobacco: Never Assessed Sex and Gender Information Value Date Recorded Sex Assigned at Not on file Legal Sex Male 11:42 PM CDT Gender Identity Not on file Sexual Orientation Not on file Plan of Treatment Health Maintenance Due Date Last Done Comments DTAP/TDAP/TD VACCINES (1 - Tdap) 1993 HEPATITIS B VACCINES (1 of 3 - 19+ 3-dose series) 01/1993 COLORECTAL SCREENING 2019 Colorectal Cancer Screening 2019 FIT-DNA Q 3 years 2019 FIT/FOBT Q 1 year 2019 Flex Sig/CT Colonography Q 5 years 2019 ZOSTER VACCINE (1 of 2) 2024 INFLUENZA VACCINE (#1) 2025 Insurance DISABILITY DETERMINATION Care Teams Community Planning Technician Relationship Specialty Start Date End Date Non-Staff, Physician NO ADDRESS ON FILE PCP - General 12/18/20
--- OUTSIDE RECORDS SUMMARY | 2025-05-26 11:15 | XMS_ITS | Encounter Summary ---
Author Organization [facility] Address [address] [place] [address] Care Team Providers Care Tooth Clerk Name Role Phone Non-Staff, Physician Primary Care Provider Unava ilable Encounter Details Date Type Department Care Team (Late st Contact Info) Description 07/10/2018 Lab Requisition [facility] Laboratory Services [place] [address] [place] [address] Augustine Borden PA NO ADDRESS ON FILE Social History Tobacco Use Types Packs/Day Years Used Date Smoking Tobacco: Never Assessed Sex and Gender Information Value Date Recorded Sex Assigned at Not on file Legal Sex Male 11:42 PM CDT Gender Identity Not on file Sexual Orientation Not on file documented as of this encounter Plan of Treatment Not on file documented as of this encounter Visit Diagnoses Not on filedocumented in this encounter Care Teams Tooth Clerk Relationship Specialty Start Date End Date Non-Staff, Physician NO ADDRESS ON FILE PCP - General 12/18/20 documented as of this encounter
--- OUTSIDE RECORDS SUMMARY | 2025-05-26 11:15 | XMS_ITS | Encounter Summary ---
[facility] Organization [facility] Address [address] [place] [address] Care Team Providers Care Assistant Food Service Manager Name Role Phone Non-Staff, Physician Primary Care Provider Unava ilable Encounter Details Date Type Department Care Team (Late st Contact Info) Description 12/18/2020 Ancillary Orders [facility] [place] [address] [place] [address] Chente Escudero, DO [address] [facility] [address] [place] [address] Encounter for disability determination Social History Tobacco Use Types Packs/Day Years Used Date Smoking Tobacco: Never Assessed Sex and Gender Information Value Date Recorded Sex Assigned at Not on file Legal Sex Male 11:42 PM CDT Gender Identity Not on file Sexual Orientation Not on file COVID-19 Exposure Response Date Recorded In the last month, have you been in contact with someone who was confirmed or suspected to have Coronavirus / COVID-19? No / Unsure 12/18/2020 11:23 AM CDT documented as of this encounter Plan of Treatment Not on file documented as of this encounter Results * XR KNEE 1 OR 2 VW RIGHT (12/18/2020 12:05 PM CDT) Anatomical Region Laterality Modality Lower Extremity Computed Radiogr aphy 12/18/2020 12:0 5 PM CDT Impressions 12/19/2020 9:39 AM CDT IMPRESSION: Please see below. Exam: XR KNEE 1 OR 2 VW RIGHT Date/Time of Exam: 12/18/2020 12:05 PM Reason For Exam: See Diagnosis. Diagnosis: Encounter for disability determination. Findings: No acute bone or joint abnormality. The joint spaces are well-maintained. No joint effusion. Narrative Procedure Note Vinh Rodriguez MD - 12/19/2020 IMPRESSION: Please see below. Exam: XR KNEE 1 OR 2 VW RIGHT Date/Time of Exam: 12/18/2020 12:05 PM Reason For Exam: See Diagnosis. Diagnosis: Encounter for disability determination. Findings: No acute bone or joint abnormality. The joint spaces are well-maintained. No joint effusion. us Chente Escudero DO DIAGNOSTIC IMAGING ALEXSANDER PEREZ Final Result documented in this encounter Visit Diagnoses Diagnosis Encounter for disability determination Issue of medical certificate for disability examination Encounter for disability determination Issue of medical certificate for disability examination documented in this encounter Care Teams Assistant Food Service Manager Relationship Specialty Start Date End Date Non-Staff, Physician NO ADDRESS ON FILE PCP - General 12/18/20 documented as of this encounter
--- OUTSIDE RECORDS SUMMARY | 2025-05-26 11:15 | XMS_ITS | Encounter Summary ---
Author Organization [facility] Address [address] [place] [address] Care Team Providers Care Injection Molding Technician Name Role Phone Non-Staff, Physician Primary Care Provider Unava ilable Encounter Details Date Type Department Care Team (Late st Contact Info) Description 07/11/2018 Lab Requisition [facility] Laboratory Services [place] [address] [place] [address] Augustine Borden PA NO ADDRESS [...] on file documented as of this encounter Procedures Procedure Name Priority Date/Time Associated Diagnosis Comments CBC WITH DIFFERENTIAL Routine 07/11/2018 1:50 PM SOLUTIONS DEVELOPER TSH Routine 07/11/2018 1:50 PM SOLUTIONS DEVELOPER TESTOSTERONE, TOTAL Routine 07/11/2018 1 :50 PM SOLUTIONS DEVELOPER HEMOGLOBIN A1C Routine 07/11/2018 1:50 PM SOLUTIONS DEVELOPER VITAMIN B12 LEVEL Routine 07/11/2018 1:5 0 PM SOLUTIONS DEVELOPER LIPID PANEL Routine 07/11/2018 1:50 PM SOLUTIONS DEVELOPER COMPREHENSIVE METABOLIC PANEL Routine 07/11/2018 1:50 PM SOLUTIONS DEVELOPER documented in this encounter Results * (ABNORMAL) VITAMIN B12 LEVEL (07/11/2018 1:50 PM SOLUTIONS DEVELOPER) VITAMIN B12 <150(L) 211 - 946 pg/mL 07/11/2018 4:32 PM [facility] Blood Collection / Unknown 07/11/2018 1:50 PM SOLUTIONS DEVELOPER 07/11/2018 2:20 PM SOLUTIONS DEVELOPER Augustine SALGUERO CHEMISTRY ORDERABLES Final Re sult [facility] CLIA # [id number] [address] [place] [address] * (ABNORMAL) COMPREHENSIVE METABOLIC PANEL (07/11/2018 1:50 PM SOLUTIONS DEVELOPER) SODIUM 137 136 - 145 mmol/L 07/11/2018 2:56 PM [facility] POTASSIUM 4.4 3.5 - 5.1 mmol/L 07/11/2018 2:56 PM [facility] CHLORIDE 100 98 - 107 mmol/L 07/11/2018 2:56 PM [facility] CO2 27 22 - 29 mmol/L 07/11/2018 2:56 PM [facility] CALCIUM 9.4 8.6 - 10.0 mg/dL 07/11/2018 2:56 PM [facility] BUN 11 6 - 20 mg/dL 07/11/2018 2:56 PM [facility] CREATININE 0.72 0.67 - 1.17 mg/dL 07/11/2018 2:56 PM [facility] GLUCOSE 91 74 - 99 mg/dL 07/11/2018 2:56 PM [facility] TOTAL PROTEIN 7.2 6.6 - 8.7 g/dL 07/11/2018 2:56 PM [facility] ALBUMIN 4.7 3.5 - 5.2 g/dL 07/11/2018 2:56 PM [facility] BILIRUBIN TOTAL 0.4 0.0 - 1.2 mg/dL 07/11/2018 2:56 PM [facility] ALKALINE PHOSPHATASE 48 40 - 129 U/L 07/11/2018 2:56 PM [facility] AST 16 10 - 50 U/L 07/11/2018 2:56 PM [facility] ALT 18 10 - 50 U/L 07/11/2018 2:56 PM [facility] GFR >60 >=60 mL/min/1.7 3 sq meter 07/11/2018 2:56 PM [facility] Comment: eGFR has not been validated for use in the elderly (> 70 years of age), women, patients with serious co-morbid conditions, or persons with extremes of body size or muscle mass and should also be interpreted with caution in patients with acute kidney failure, dialysis dependent patients, patients reporting exceptional dietary intake (e.g. vegetarian diet, high protein diets, creatine supplementation), and patients with severe liver disease. Based on National Kidney Disease Education Program If patient is , please refer to the GFR result. GFR, >60 >=60 mL/min/1.7 3 sq meter 07/11/2018 2:56 PM [facility] ANION GAP 10(L) 12 - 20 mmol/L 07/11/2018 2:56 PM [facility] Blood Collection / Unknown 07/11/2018 1:50 PM SOLUTIONS DEVELOPER 07/11/2018 2:20 PM SOLUTIONS DEVELOPER us Augustine SALGUERO CHEMISTRY ORDERABLES Final Re sult [facility] [id number] [address] [place] [address] * CBC WITH DIFFERENTIAL (07/11/2018 1:50 PM SOLUTIONS DEVELOPER) WBC 6.9 4.2 - 9.1 K/uL 07/11/2018 2:36 PM [facility] RBC 5.13 4.63 - 6.08 M/uL 07/11/2018 2:36 PM [facility] HEMOGLOBIN 14.9 13.7 - 17.5 g/dL 07/11/2018 2:36 PM [facility] HEMATOCRIT 44.2 40.1 - 51.0 % 07/11/2018 2:36 PM [facility] MCV 86.2 79.0 - 92.2 fL 07/11/2018 2:36 PM [facility] MCH 29.0 25.7 - 32.2 pg 07/11/2018 2:36 PM [facility] MCHC 33.7 32.3 - 36.5 g/dL 07/11/2018 2:36 PM [facility] RDW 13.7 11.0 - 14.5 % 07/11/2018 2:36 PM [facility] RDW-STDEV 43.0 36.9 - 56.9 fL 07/11/2018 2:36 PM [facility] PLATELETS 235 130 - 400 K/uL 07/11/2018 2:36 PM [facility] MPV 11.2 10.0 - 14.8 fL 07/11/2018 2:36 PM [facility] NEUTROPHILS 51 34 - 68 % 07/11/2018 2:36 PM [facility] LYMPHOCYTES 39 22 - 53 % 07/11/2018 2:36 PM [facility] MONOCYTES 6 5 - 12 % 07/11/2018 2:36 PM [facility] EOSINOPHILS 2 1 - 7 % 07/11/2018 2:36 PM [facility] BASOPHILS 1 0 - 1 % 07/11/2018 2:36 PM [facility] IMMATURE GRANULOCYTES 0 % 07/11/2018 2:36 PM [facility] NEUTROPHIL ABSOLUTE 3.49 1.78 - 5.38 K/uL 07/11/2018 2:36 PM [facility] LYMPHOCYTE ABSOLUTE 2.70 1.20 - 3.40 K/uL 07/11/2018 2:36 PM [facility] MONOCYTE ABSOLUTE 0.44 0.30 - 0.82 K/uL 07/11/2018 2:36 PM [facility] EOSINOPHIL ABSOLUTE 0.14 0.04 - 0.54 K/uL 07/11/2018 2:36 PM [facility] BASOPHILS ABSOLUTE 0.07 0.01 - 0.08 K/uL 07/11/2018 2:36 PM [facility] IMMATURE GRANULOCYTES ABSOLUTE 0.01 K/uL 07/11/2018 2:36 PM [facility] Blood Collection / Unknown 07/11/2018 1:50 PM SOLUTIONS DEVELOPER 07/11/2018 2:20 PM SOLUTIONS DEVELOPER Augustine SALGUERO HEMATOLOGY ORDERABLES Final R esult Performing Organization Address [facility] de Phone Number [facility] CLIA # [id number] [address] [place] [phone] * HEMOGLOBIN A1C (07/11/2018 1:50 PM SOLUTIONS DEVELOPER) HEMOGLOBIN A1C 5.1 4.8 - 5.9 % 07/11/2018 3:25 PM SOLUTIONS DEVELOPER [facility] EST. AVG GLUCOSE, A1C 100 mg/dL 07/11/2018 3:25 PM [facility] Blood Collection / Unknown 07/11/2018 1:50 PM SOLUTIONS DEVELOPER 07/11/2018 2:20 PM SOLUTIONS DEVELOPER Narrative [facility] - 07/11/2018 3:25 PM SOLUTIONS DEVELOPER HGB A1C INTERPRETATION NORMAL: <5.7% PRE-DIABETES: 5.7 - 6.4% DIABETES: 6.5% OR GREATER us Augustine SALGUERO CHEMISTRY ORDERABLES Final Re sult Performing Organization Address [facility] Co de Phone Number [facility] CLIA # [id number] [address] [place] [address] * (ABNORMAL) LIPID PANEL (07/11/2018 1:50 PM SOLUTIONS DEVELOPER) CHOLESTEROL 277(H) <200 mg/dL 07/11/2018 2:56 PM SOLUTIONS DEVELOPER [facility] TRIGLYCERIDE 156(H) <150 mg/dL 07/11/2018 2:56 PM SOLUTIONS DEVELOPER [facility] HDL 45 40 - 59 mg/dL 07/11/2018 2:56 PM [facility] LDL CALCULATED 201(H) <100 mg/dL 07/11/2018 2:56 PM [facility] NON-HDL CHOLESTEROL 232(H) <130 mg/dL 07/11/2018 2:56 PM [facility] Blood Collection / Unknown 07/11/2018 1:50 PM SOLUTIONS DEVELOPER 07/11/2018 2:20 PM SOLUTIONS DEVELOPER Narrative [facility] - 07/11/2018 2:56 PM SOLUTIONS DEVELOPER TOTAL CHOLESTEROL mg/dL Desirable <200 Borderline high 200-239 High >=240 TRIGLYCERIDES mg/dL Normal <150 Borderline high 150-199 High 200-499 Very high >=500 HDL CHOLESTEROL mg/dL Low <40 Normal 40-59 Desirable >=60 NON HDL CHOLESTEROL mg/dL Optimal <130 Near Optimal 130-159 Borderline High 160-189 Very High >=190 Calculated LDL mg/dL Optimal <100 Near Optimal 100-129 Borderline High 130-159 High 160-189 Very High >=190 ATPIII Guidelines Reference Ranges for Lipid Panels (NCEP/AMA) Augusitne SALGUERO CHEMISTRY ORDERABLES Final Re sult Performing Organization Address [facility] Co de Phone Number [facility] CLIA # [id number] [address] [place] [address] * (ABNORMAL) TESTOSTERONE, TOTAL (07/11/2018 1:50 PM SOLUTIONS DEVELOPER) TESTOSTERONE 201(L) 240 - 950 ng/dL 07/16/2018 2:23 PM SOLUTIONS DEVELOPER [facility] Comment: ADDITIONAL INFORMATION Testing performed by Liquid Chromatography-Tandem Mass Spectrometry (LC-MS/MS). This test was developed and its performance characteristics determined by [facility] in a manner consistent with CLIA requirements. This test has not been cleared or approved by the U.S. Food and Drug Administration. Test Performed by: [facility] [address] [place] [address] Blood Collection / Unknown 07/11/2018 1:50 PM SOLUTIONS DEVELOPER 07/11/2018 2:20 PM SOLUTIONS DEVELOPER Augustine SALGUERO CHEMISTRY ORDERABLES Final Re sult [facility] * TSH (07/11/2018 1:50 PM SOLUTIONS DEVELOPER) TSH 4.15 0.27 - 4.20 uIU/mL 07/11/2018 2:56 PM SOLUTIONS DEVELOPER [facility] Blood Collection / Unknown 07/11/2018 1:50 PM SOLUTIONS DEVELOPER 07/11/2018 2:20 PM SOLUTIONS DEVELOPER Augustine SALGUERO CHEMISTRY ORDERABLES Final Re sult [facility] CLIA # [id number] [address] [place] [address] documented in this encounter Visit Diagnoses Not on filedocumented in this encounter Care Teams Injection Molding Technician Relationship Specialty Start Date End Date Non-Staff, Physician NO ADDRESS ON FILE PCP - General 12/18/20 documented as of this encounter
--- OUTSIDE RECORDS SUMMARY | 2025-05-26 11:15 | XMS_ITS | Encounter Summary ---
Author Organization [facility] Address [address] [place] [address] Care Team Providers Care Cabin Agent Name Role Phone Non-Staff, Physician Primary Care Provider Unava ilable Encounter Details Date Type Department Care Team (Late st Contact Info) Description 12/18/2020 Ancillary Orders [facility] [address] [place] [address] hCente Escudero, DO [address] [facility] [address] [place] [address] Encounter for disability determination Social [...] as of this encounter Results * XR LUMBAR SPINE 2 OR 3 VW (12/18/2020 12:05 PM CDT) Anatomical Region Laterality Modality Spine Computed Radiogr aphy 12/18/2020 12:0 5 PM CDT Impressions 12/19/2020 9:40 AM CDT IMPRESSION: Please see below. Exam: XR LUMBAR SPINE 2 OR 3 VW Date/Time of Exam: 12/18/2020 12:05 PM Reason For Exam: See Diagnosis. Diagnosis: Encounter for disability determination. Findings: There is nonspecific straightening of the lumbar lordosis. The vertebral body heights are well-maintained. There is slight loss of interspace height at the L2-3 level consistent with mild degenerative disc disease. The remainder the disks are well-maintained. Mild anterior endplate osteophytosis is present at several upper lumbar levels. No fracture or subluxation. Narrative Procedure Note Vinh Rodriguez MD - 12/19/2020 IMPRESSION: Please see below. Exam: XR LUMBAR SPINE 2 OR 3 VW Date/Time of Exam: 12/18/2020 12:05 PM Reason For Exam: See Diagnosis. Diagnosis: Encounter for disability determination. Findings: There is nonspecific straightening of the lumbar lordosis. The vertebral body heights are well-maintained. There is slight loss of interspace height at the L2-3 level consistent with mild degenerative disc disease. The remainder the disks are well-maintained. Mild anterior endplate osteophytosis is present at several upper lumbar levels. No fracture or subluxation. Chente Escudero DO DIAGNOSTIC IMAGING ALEXSANDER PEREZ Final Result documented in this encounter Visit Diagnoses Diagnosis Encounter for disability determination Issue of medical certificate for disability examination Encounter for disability determination Issue of medical certificate for disability examination documented in this encounter Care Teams Cabin Agent Relationship Specialty Start Date End Date Non-Staff, Physician NO ADDRESS ON FILE PCP - General 12/18/20 documented as of this encounter
--- OUTSIDE RECORDS SUMMARY | 2025-05-26 11:15 | XMS_ITS | Encounter Summary ---
Author Organization [facility] Address [address] [place] [address] Care Team Providers Care Merchandise Adjustment Clerk Name Role Phone Non-Staff, Physician Primary Care Provider Unava ilable Encounter Details Date Type Department Care Team (Late st Contact Info) Description 02/10/2015 Lab Requisition [facility] Services [address] [place] [address] Chuy Mendoza, NOEMY [address] [place] [id number] Social History Tobacco Use Types Packs/Day Years [...] Procedure Name Priority Date/Time Associated Diagnosis Comments DIFFERENTIAL, MANUAL Routine 02/10/2015 11:43 PM CDT CBC WITH DIFFERENTIAL Routine 02/10/2015 11:43 PM CDT TSH Routine 02/10/2015 11:43 PM CDT TESTOSTERONE, TOTAL Routine 02/10/2015 1 1:43 PM CDT HEMOGLOBIN A1C Routine 02/10/2015 11:43 PM CDT VITAMIN B12 LEVEL Routine 02/10/2015 11: 43 PM CDT COMPREHENSIVE METABOLIC PANEL Routine 02/10/2015 11:43 PM CDT documented in this encounter Results * (ABNORMAL) MANUAL DIFFERENTIAL (02/10/2015 11:43 PM CDT) SEGMENTED NEUTROPHILS 68 45 - 70 % 02/11/2015 2:55 AM CDT [facility] [place] LYMPHOCYTES RELATIVE 26 20 - 45 % 02/11/2015 2:55 AM CDT [facility] [place] MONOCYTES RELATIVE 5 2 - 8 % 02/11/2015 2:55 AM CDT [facility] [place] BASOPHILS RELATIVE 1 0 - 2 % 02/11/2015 2:55 AM CDT [facility] [place] NEUTROPHILS ABSOLUTE COUNT 5.58(H) 1.78 - 5.38 K/uL 02/11/2015 2:55 AM CDT [facility] [place] LYMPHOCYTES ABSOLUTE 2.13 1.20 - 4.00 K/uL 02/11/2015 2:55 AM CDT [facility] [place] MONOCYTES ABSOLUTE 0.41 0.30 - 0.82 K/uL 02/11/2015 2:55 AM CDT [facility] [place] BASOPHILS ABSOLUTE 0.08 0.01 - 0.08 K/uL 02/11/2015 2:55 AM CDT [facility] [place] TOTAL CELLS COUNTED IN DIFF 100 02/11/2015 2:55 AM CDT [facility] [place] PLATELET EST. Consistent with Count 02/11/2015 2:55 AM CDT [facility] [place] RBC MORPHOLOGY Normal 02/11/2015 2:55 AM CDT [facility] [place] Blood 02/10/2015 11:4 3 PM CDT 02/10/2015 11:43 PM CDT us Chuy SALGUERO HEMATOLOGY ORDERABLES COM Fi nal Result [facility] [place] CLIA # [id number] [address] [place] [address] * TESTOSTERONE (02/10/2015 11:43 PM CDT) TESTOSTERONE 115.0 ng/dL 02/13/2015 6:59 PM CDT [facility] [place] Blood specimen (specimen) 02/10/2015 11:43 PM CDT 02/10/2015 11:43 PM CDT Chuy SALGUERO CHEMISTRY ORDERABLES Final R esult Performing Organization Address [facility] Co de Phone Number [facility] [place] CLIA# [id number] [facility] [place] [place] [address] * TSH (02/10/2015 11:43 PM CDT) [facility] TSH 2.45 0.30 - 4.80 uIU/mL 02/11/2015 3:03 AM CDT [facility] Blood 02/10/2015 11:4 3 PM CDT 02/10/2015 11:43 PM CDT us Chuy SALGUERO CHEMISTRY ORDERABLES Final R esult Performing Organization Address [facility] de Phone Number [facility] CLIA # [id number] [address] [place] [address] * HEMOGLOBIN A1C (02/10/2015 11:43 PM CDT) [facility] HEMOGLOBIN A1C 5.8 4.5 - 6.2 % 02/11/2015 2:19 AM CDT [facility] EST. AVG GLUCOSE, A1C 120 mg/dL 02/11/2015 2:19 AM CDT [facility] Blood 02/10/2015 11:4 3 PM CDT 02/10/2015 11:43 PM CDT Chuy SALGUERO CHEMISTRY ORDERABLES Final R esult Performing Organization Address City/[facility]/ZIP Co de Phone Number [facility] CLIA # [id number] [address] [place] [address] * (ABNORMAL) COMPREHENSIVE METABOLIC PANEL (02/10/2015 11:43 PM CDT) SODIUM 140 136 - 145 mmol/L 02/11/2015 3:03 AM [facility] [place] POTASSIUM 4.0 3.5 - 5.1 mmol/L 02/11/2015 3:03 AM [facility] [place] [facility] [place] CHLORIDE 103 98 - 107 mmol/L 02/11/2015 3:03 AM [facility] [place] [facility] [place] CO2 26 21 - 32 mmol/L 02/11/2015 3:03 AM [facility] CALCIUM 8.8 8.5 - 10.1 mg/dL 02/11/2015 3:03 AM [facility] [facility] [place] BUN 12 7 - 18 mg/dL 02/11/2015 3:03 AM [facility] [facility] CREATININE 1.01 0.60 - 1.30 mg/dL 02/11/2015 3:03 AM [facility] [place] GLUCOSE 85 74 - 106 mg/dL 02/11/2015 3:03 AM [facility] TOTAL PROTEIN 7.3 6.4 - 8.2 g/dL 02/11/2015 3:03 AM [facility] ALBUMIN 4.2 3.4 - 5.0 g/dL 02/11/2015 3:03 AM [facility] [place] [facility] BILIRUBIN TOTAL 0.4 0.2 - 1.0 mg/dL 02/11/2015 3:03 AM [facility] ALKALINE PHOSPHATASE 49 46 - 116 U/L 02/11/2015 3:03 AM [facility] AST 17 15 - 37 U/L 02/11/2015 3:03 AM [facility] ALT 44 30 - 65 U/L 02/11/2015 3:03 AM [facility] GFR >60 >=60 mL/min/1.7 3 sq meter 02/11/2015 3:03 AM [facility] Comment: eGFR has not been validated for [...] GFR, >60 >=60 mL/min/1.7 3 sq meter 02/11/2015 3:03 AM CDT [employer] [facility] ANION GAP 11(L) 12 - 20 mmol/L 02/11/2015 3:03 AM CDT [facility] Blood 02/10/2015 11:4 3 PM CDT 02/10/2015 11:43 PM CDT Narrative [facility] [place] - 02/11/2015 3:03 AM CDT Effective 03/28/2014, the Alkaline Phosphatase test method and reference range have changed. Please take this into consideration when interpreting results prior to or after this date. Chuy SALGUERO CHEMISTRY ORDERABLES Final R esult [facility] [employer] [facility] CLIA # [id number] [address] [place] [address] * CBC WITH DIFFERENTIAL (02/10/2015 11:43 PM CDT) WBC 8.2 4.2 - 9.1 K/uL 02/11/2015 12:12 AM CDT [employer] [facility] RBC 5.02 4.63 - 6.08 M/uL 02/11/2015 12:12 AM CDT [employer] [facility] HEMOGLOBIN 14.7 13.7 - 17.5 g/dL 02/11/2015 12:12 AM CDT [employer] [facility] HEMATOCRIT 43.6 40.1 - 51.0 % 02/11/2015 12:12 AM CDT [employer] [facility] MCV 86.9 79.0 - 92.2 fL 02/11/2015 12:12 AM CDT [employer] [facility] MCH 29.3 25.7 - 32.2 pg 02/11/2015 12:12 AM CDT [employer] [facility] MCHC 33.7 32.3 - 36.5 g/dL 02/11/2015 12:12 AM CDT [facility] [employer] [facility] RDW 13.6 11.0 - 14.5 % 02/11/2015 12:12 AM CDT [facility] RDW-STDEV 42.9 36.9 - 56.9 fL 02/11/2015 12:12 AM CDT [facility] PLATELETS 229 130 - 400 K/uL 02/11/2015 12:12 AM CDT [facility] MPV 11.7 10.0 - 14.8 fL 02/11/2015 12:12 AM CDT [facility] Blood 02/10/2015 11:4 3 PM CDT 02/10/2015 11:43 PM CDT us Chuy SALGUERO HEMATOLOGY ORDERABLES Final Result Performing Organization Address City/[facility]/ZIP Co de Phone Number [facility] CLIA # [id number] [address] [place] [address] * VITAMIN B12 LEVEL (02/10/2015 11:43 PM CDT) VITAMIN B12 265 211 - 911 pg/mL 02/11/2015 9:45 PM CDT [facility] Blood specimen (specimen) 02/10/2015 11:43 PM CDT 02/10/2015 11:43 PM CDT us Chuy SALGUERO CHEMISTRY ORDERABLES Final R esult Performing Organization Address City/[facility]/ZIP Co de Phone Number [facility] CLIA# [id number] [facility] [place] [address] [facility] CLIA# [id number] [address] [place] [address] documented in this encounter Visit Diagnoses Not on filedocumented in this encounter Care Teams Merchandise Adjustment Clerk Relationship Specialty Start Date End Date Non-Staff, Physician NO ADDRESS ON FILE PCP - General 12/18/20 documented as of this encounter
--- NOTE | 2025-05-26 11:24 | ECG_ITS ---
[facility] Date: 2025-05-26 Pat Name: Abilio Adams Department: Room: Gender: Male Clerk Supervisor: : 1975 Requested By: Rhiannon Briggs Order Number: [id number] Ron MD: Jimenez Camacho M.D. Measurements Intervals [place] Rate: 104 P: 69 GA: 164 QRS: 117 QRSD: 98 T: 44 QT: 414 QTc: 547 Interpretive Statements SINUS TACHYCARDIA LEFT ATRIAL ENLARGEMENT [-0.15mV P-WAVE IN V1/V2] POSSIBLE RIGHT VENTRICULAR HYPERTROPHY [SOME/ALL OF: PROMINENT R IN V1, LATE TRANSITION, RAD, BE, SSS] NONSPECIFIC T-WAVE ABNORMALITY POSSIBLE LEFT POSTERIOR FASCICULAR BLOCK POSSIBLE ANTERIOR INFARCTION, AGE UNDETERMINED Compared to ECG 01/18/2023 15:49:25 LEFT POSTERIOR FASCICULAR BLOCK AND POSSIBLE ANTERIOR INFARCTION ON INDETERMINATE AGE ARE NEW Electronically Signed On 05-26-2025 14:08:47 ASSEMBLER DC FIELD RING by Jimenez Camacho M.D. [id number]
[2025-05-26 12:38] LABS: Hematocrit 45.9 % (37-53); Hemoglobin 14.30 g/dL (11.27-16.99); Mean Corpuscular HGB Conc 31.2 g/dL (30-55); Mean Corpuscular Hemoglobin 27.4 pg (27-33); Mean Corpuscular Volume 87.9 fl (82-101); Nucleated Red Blood Cells % 0 %; Platelet Count 137 10^3/cmm (157-399); Red Blood Count 5.22 10^6/uL (3.85-5.65); White Blood Count 7.15 10^3/uL (3.29-11.43)
--- NOTE | 2025-05-26 12:44 | W.ED.SOB ---
HPI - SOB/Dyspnea General: Chief Complaint: Shortness of Breath/Dyspnea Stated Complaint: adb pain and sob Time Seen by Provider: 05/26/25 12:36 Source: patient Mode of arrival: ambulatory Limitations: no limitations History of Present Illness: HPI Narrative: 50-year-old male states been having upper abdominal pain he states been going on for weeks. States that he had eaten a banana this morning and had worsening pain states pain is a burning sensation in his upper abdomen he denies any nausea or vomiting pain has improved slightly rates pain a 6 out of 10 states he also has a history of congestive heart failure is on Lasix but states he is feeling he has had some increasing dyspnea as well denies any cough denies any chest pain denies any fever. Associated symptoms: Reports abdominal pain Related Data Home Medications ?Medication ?Instructions ?Recorded ?Confirmed venlafaxine 37.5 mg 37.5 mg PO DAILY 05/30/24 05/26/25 capsule,extended release 24 hr (Effexor XR) hydroxyzine HCl 10 mg tablet 10 mg PO BID PRN Anxiety 06/12/24 05/26/25 methocarbamol 500 mg tablet 500 mg PO TID PRN Muscle Spasm 06/13/24 05/26/25 furosemide 20 mg tablet 20 mg PO QAM 05/26/25 05/26/25 levothyroxine 25 mcg tablet 25 mcg PO DAILY 05/26/25 05/26/25 omeprazole 20 mg capsule,delayed 20 mg PO DAILY 05/26/25 05/26/25 release potassium chloride 10 mEq 10 meq PO DAILY 05/26/25 05/26/25 capsule,extended release venlafaxine 75 mg capsule,extended 75 mg PO DAILY 05/26/25 05/26/25 release 24 hr Previous Rx's ?Medication ?Instructions ?Recorded Bone Growth Stimulator #1 ea 06/04/24 hydrocodone 5 mg-acetaminophen 325 1 tab PO .Q4-6H PRN pain 1 month 07/10/24 mg tablet #160 tabs Allergies Allergy/AdvReac Type Severity Reaction Status Date / Time Alpha-Gal Allergy Unknown Verified 05/26/25 11:25 ([id number]-6,3-Gala shellfish derived Allergy Unknown Verified 05/26/25 11:24 Review of Systems Resp: Reports: dyspnea GI: Reports: abdominal pain PFSH ED PFSH: Medical History Hypertension Morbid obesity Diaphoresis Nausea & vomiting Abdominal pain Insomnia Hypertension Bronchitis Post-traumatic stress disorder, chronic Major depressive disorder, recurrent, in partial remission Chronic low back pain with sciatica Chronic fatigue disorder Surgical History No pertinent past surgical history Family History Grandfather Stroke Mother Heart problem Mother Congestive heart failure (CHF) Social History Smoking and tobacco/nicotine status: former use of tobacco/nicotine Second hand smoke exposure: No Alcohol intake: never Substance/Drug Use: current Physical Exam Const: COMMON NORMALS: no acute distress, patient oriented x3 and healthy appearing HENMT: COMMON NORMALS: normocephalic and atraumatic HEAD & SCALP: normocephalic and atraumatic Neck/C-Spine: COMMON NORMALS: full ROM and supple Chest: COMMONS NORMALS: normal inspection of the chest Resp: COMMON NORMALS: normal respiratory effort, No retractions, No use of accessory muscles and clear to auscultation bilaterally AUSCULTATION: clear to auscultation bilaterally Cardio: COMMON NORMALS: regular rate, regular rhythm and No murmurs present (Cardio) RATE: regular rate RHYTHM: regular rhythm GI: COMMON NORMALS: Normal to inspection, nondistended, normoactive bowel sounds present, Soft to palpation, non-tender and no masses PALPATION: Yes Soft to palpation Extremity: COMMON NORMALS: normal to inspection and full ROM Neuro: COMMON NORMALS: patient oriented x3, moves all extremities and no focal motor deficits Psych: COMMON NORMALS: mental status grossly normal, Normal thought process present and cooperative THOUGHT PROCESS: Normal thought process present Skin: COMMON NORMALS: no rashes or lesions noted and no wounds GENERAL SKIN EXAM: no rashes or lesions noted Course Vital Signs: Vital signs: Vital Signs Temperature 98.3 F 05/26/25 11:15 Pulse Rate 111 H 05/26/25 11:15 Respiratory Rate 20 H 05/26/25 11:15 Blood Pressure 142/101 05/26/25 11:15 Pulse Oximetry 95 05/26/25 11:15 Oxygen Delivery Me thod Room Air 05/26/25 11:15 MDM - SOB/Dyspnea Medical Decision Making Patient presents here with epigastric abdominal pain differential includes cholecystitis, pancreatitis. Patient's lipase here is negative ultrasound showed no signs of acute cholecystitis is likely gastritis his pain has improved currently. The abdominal exam and discharge is benign. White count here is normal no signs of acute surgical abdomen. He has chronic dyspnea from CHF he has no signs of significant fluid overload I did interpret his chest x-ray no signs of pulmonary edema EKG here showed sinus tach heart rate [address] elevation QS 98 QTc 479. Patient is stable for discharge I did go over all his results with him he is follow-up with his PCP return if worsening he understands agrees to plan. Medical Records I reviewed the patient's medical records. Lab Data I reviewed the patient's lab results. 05/26/25 12:25 05/26/25 12:25 Labs/Radiology: Radiology Impressions Chest X-Ray 05/26/25 11:13 IMPRESSION: No acute findings. Laboratory Results WBC 7.15 10^3/uL (3.29-11.43) 05/26/25 12:25 RBC 5.22 10^6/uL (3.85-5.65) 05/26/25 12:25 Hgb 14.30 g/dL (11.27-16.99) 05/26/25 12:25 Hct 45.9 % (37-53) 05/26/25 12:25 MCV 87.9 fl (82-101) 05/26/25 12:25 MCH 27.4 pg (27-33) 05/26/25 12:25 MCHC 31.2 g/dL (30-55) 05/26/25 12:25 RDW 15.2 % (12.1-15.1) H 05/26/25 12:25 Plt Count 137 10^3/cmm (157-399) L 05/26/25 12:25 MPV 13.3 fL (7.4-10.4) H 05/26/25 12:25 Neut % (Auto) 75.8 % 05/26/25 12:25 Lymph % (Auto) 17.6 % 05/26/25 12:25 Tama % (Auto) 4.6 % 05/26/25 12:25 Eos % (Auto) 0.8 % 05/26/25 12:25 Baso % (Auto) 1.1 % 05/26/25 12:25 Neut # (Auto) 5.41 10^3/uL (1.8-7.7) 05/26/25 12:25 Lymph # (Auto) 1.3 10^3/uL (0.8-4.8) 05/26/25 12:25 Tama # (Auto) 0.3 10^3/uL (0.2-0.9) 05/26/25 12:25 Eos # (Auto) 0.1 10^3/uL (0.0-0.8) 05/26/25 12:25 Baso # (Auto) 0.1 10^3/uL (0.0-0.1) 05/26/25 12:25 Nucleated RBC % (auto) 0 % 05/26/25 12: Nucleated RBCs # 0.0 /100WBC 05/26/25 12:25 Sodium 137 mmol/L (136-145) 05/26/25 12:25 Potassium 4.2 mmol/L (3.5-5.1) 05/26/25 12:25 Chloride 102 mmol/L (98-107) 05/26/25 12:25 Carbon Dioxide 22 mmol/L (22-29) 05/26/25 12:25 Anion Gap 17.2 (5-19) 05/26/25 12:25 BUN 15 mg/dL (6-20) 05/26/25 12:25 Creatinine 1.0 mg/dL (0.7-1.2) 05/26/25 12:25 GFR Calculation 78.8 mL/min (90-130) L 05/26/25 12:25 Glucose 96 mg/dL (65-115) 05/26/25 12:25 Calculated Osmolality 285 mOsm/kg (285-295) 05/26/25 12:25 Calcium 9.5 mg/dL (8.5-10.5) 05/26/25 12:25 Total Bilirubin 2.0 mg/dL (0.15-1.2) H 05/26/25 12:25 AST 17 U/L (0-40) 05/26/25 12:25 ALT 14 U/L (0-41) 05/26/25 12:25 Alkaline Phosphatase 73 U/L (40-130) 05/26/25 12:25 NT-Pro-B Natriuret Pep 4191 pg/mL (0-125) H 05/26/25 12:25 Total Protein 6.8 g/dL (6.6-8.7) 05/26/25 12:25 Albumin 4.4 g/dL (3.5-5.2) 05/26/25 12:25 Globulin 2.4 g/dL (1.3-4.6) 05/26/25 12:25 Lipase 63 U/L (13-60) H 05/26/25 12:25 All radiology interpretation(s) finalized by discharge EKG Data EKG 1: I personally reviewed and interpreted this EKG as follows: EKG Interpretation Date: 05/26/25 EKG interpretation time: 11:18 Interpretation: sinus tach hr [address] elevation qrs 98 qtc 479 Discharge Plan Discharge Patient Disposition: Home Clinical Impression: Abdominal pain, Congestive heart failure Condition: Stable Prescriptions: No Action venlafaxine [Effexor XR] 37.5 mg capsule,extended release 24hr 37.5 mg PO DAILY Rx Instructions: along with 75mg capsule wr=955.5mg total (DME) Bone Growth Stimulator See Rx Instructions .Route .MEDSUPPLY Qty: 1 0RF Rx Instructions: As directed hydrocodone-acetaminophen 5-325 mg tablet 1 tab PO .Q4-6H PRN (Reason: pain) 30 Days Qty: 160 0RF hydroxyzine HCl 10 mg tablet 10 mg PO BID PRN (Reason: Anxiety) methocarbamol 500 mg tablet 500 mg PO TID PRN (Reason: Muscle Spasm) potassium chloride 10 mEq capsule, extended release 10 meq PO DAILY venlafaxine 75 mg capsule,extended release 24hr 75 mg PO DAILY Rx Instructions: along with 37.5mg capsule iu=781.5mg total levothyroxine 25 mcg tablet 25 mcg PO DAILY omeprazole 20 mg capsule,delayed release(DR/EC) 20 mg PO DAILY furosemide 20 mg tablet 20 mg PO QAM Discharge Orders: Discharge ED (Routine); Ordered 05/26/25 Ordered By: Rhiannon Briggs Referrals: Barton,Elisabeth, MARINE RADIO INSTALLER AND SERVICER [Primary Care Provider, Nurse Practitioner] - 4-7 days Discharge Diet: Advance as tolerated Discharge Activity: Resume usual activity Patient Instructions: Abdominal Pain (ED) Print Language: Turkmen Coding Level of Care Code ED Field Technical Support Consultant for Philly Norris
[2025-05-26 13:10] LABS: Alanine Aminotransferase 14 U/L (0-41); Albumin Level 4.4 g/dL (3.5-5.2); Alkaline Phosphatase 73 U/L (40-130); Aspartate Amino Transferase 17 U/L (0-40); Blood Urea Nitrogen 15 mg/dL (6-20); Calcium 9.5 mg/dL (8.5-10.5); Carbon Dioxide 22 mmol/L (22-29); Chloride 102 mmol/L (98-107); Creatinine Clr Calc Pharmacy 133.7596; Globulin 2.4 g/dL (1.3-4.6); Glucose 96 mg/dL (65-115); Lipase 63 U/L (13-60); NT Pro B Type Natriuretic Pept 4191 pg/mL (0-125); Osmolality Calculated 285 mOsm/kg (285-295); Sodium 137 mmol/L (136-145); Total Protein 6.8 g/dL (6.6-8.7)
--- NOTE | 2025-05-26 13:14 | USR_ITS ---
PROCEDURE INFORMATION: Exam: US Abdomen, Limited; Right Upper Quadrant Exam date and time: 05/26/2025 1:58 PM Age: 50 years old Clinical indication: Abdominal pain; Generalized; Additional info: Abd pain TECHNIQUE: Imaging protocol: Real time ultrasound of the abdomen with image documentation. Limited exam focused on the right upper quadrant. COMPARISON: CT abdomen pelvis con [id number] 05/06/2022 6:19 PM FINDINGS: Liver: Hepatomegaly. Fatty infiltration of the liver. Gallbladder: Mild gallbladder wall thickening measuring 4 mm. No gallstones. No pericholecystic fluid. Biliary ducts: No stones. No dilation. Pancreas: Visualized pancreas is unremarkable. Right kidney: No mass. No hydronephrosis. US/US gall bladder [id number] IMPRESSION: 1. Mild nonspecific gallbladder wall thickening. 2. Hepatomegaly. Fatty infiltration of the liver.
[2025-05-26 13:17] LABS: Anion Gap 17.2 (5-19); Potassium 4.2 mmol/L (3.5-5.1)
[2025-05-26] MEDS: FUROsemide 10 mg/mL SDV 4mL 40 MG IVP (13:42)
[2025-05-26] MEDS: lidocaine 2% viscous 15 ML, aluminum-mag hydrox-simethicon 30 ML, sucralfate oral liq 1 GM PO (13:43)
== END 2025-05-26 14:46 | disposition home or self-care (01) ==
PROVIDERS: Emergency Provider Emergency Medicine; PCP Nurse Practitioner Family
DX: R10.9 Unspecified abdominal pain (principal); I11.0 Hypertensive heart disease with heart failure; I50.9 Heart failure, unspecified; Z87.891 Personal history of nicotine dependence
CPT/HCPCS: 36415; 71045; 76705; 80053; 83690; 83880; 85025; 93005; 96374; 99285; J1938; J9999

== ENCOUNTER 2025-06-07 07:49 | Outpatient (CLI) | payer MEDICAID, SELFPAY ==
--- NOTE | 2025-06-07 07:54 | USCV_ITS ---
Abilio Adams Age: 50 Gender: M : 1975 Exam Date: 06/07/2025 09:01 Ordering Phys: Anita De La Torre NP Technologist: CHARLIE [place] [facility]ication: SoB, localized edema BP: 128 / 93 HR: 89 Rhythm: Sinus Technical Quality: Adequate MEASUREMENTS (Male / Female) Normal Values 2D ECHO LV Diastolic Diameter PLAX 7.9 cm 4.2 - 5.9 / 3.9 - 5.3 cm IVS Diastolic Thickness 0.9 cm 0.6 - 1.0 / 0.6 - 0.9 cm IVS Systolic Thickness 0.7 cm LVPW Diastolic Thickness 0.8 cm 0.6 - 1.0 / 0.6 - 0.9 cm LVPW Systolic Thickness 1.1 cm LVOT Diameter 2.0 cm LV Ejection Fraction 2D Teich 3.8 % LV Ejection Fraction MOD 4C 37.9 % LV Ejection Fraction MOD 2C 24.3 % LV Ejection Fraction 2C AL 27.1 % LA Diameter 5.1 cm RA Systolic Volume 4C AL 73.6 ml RA Systolic Volume 4C MOD 71.6 ml LA Sys Volume AL 102.6 cm cubed LA Sys Volume Index AL 35.5 cm cubed/m squared Aorta at Sinotubular Diameter 2.8 cm M-MODE LA Ao Ratio MM 1.8 AV Cusp Separation MM 2.0 cm DOPPLER AV Peak Velocity 86.0 cm/s LVOT Peak Velocity 52.0 cm/s AV Area Cont Eq vti 2.2 cm squared AV Area Cont Eq pk 1.8 cm squared MV Peak Velocity 113.0 cm/s MV Area PHT 8.2 cm squared Mitral E to A Ratio 2.1 TV Peak Velocity 147.0 cm/s TR Peak Velocity 203.0 cm/s TR Peak Gradient 16.5 mmHg TV Peak E Velocity 75.0 cm/s PV Peak Velocity 79.0 cm/s FINDINGS Left Ventricle Severely increased left ventricular cavity size. Severely decreased left ventricular systolic function with global hypokinesis and an EF of 20%. Normal left ventricular wall thickness. Indeterminate diastolic function due to absense of all parameters. Right Ventricle Normal right ventricular size. Moderately decreased right ventricular systolic function. RVSP could not be calculated due to incomplete tricuspid regurgitation velocity profile. Right Atrium Normal right atrial size. Left Atrium Mildly increased left atrial size. IA Septum Normal appearance of the interatrial septum. Mitral Valve Moderate mitral valve regurgitation. Aortic Valve Normal aortic valve structure. No aortic valve stenosis or regurgitation. Tricuspid Valve No tricuspid valve regurgitation. Pulmonic Valve Normal pulmonic valve structure. No pulmonic valve stenosis or regurgitation. Pericardium No pericardial effusion. Aorta Normal diameter of the aortic root and ascending thoracic aorta. IVC Inferior vena cava not visualized. CONCLUSIONS Severely increased left ventricular cavity size. Severely decreased left ventricular systolic function with global hypokinesis and an EF of 20%. Normal right ventricular size. Moderately decreased right ventricular systolic function. RVSP could not be calculated due to incomplete tricuspid regurgitation velocity profile. Moderate mitral valve regurgitation. Jimenez Camacho MD, FACC (Electronically Signed) Final Date: 07 June 2025 14:18 S
== END 2025-06-07 07:50 | disposition home or self-care (01) ==
LOC: RAD 07:50
PROVIDERS: PCP Nurse Practitioner Family; Visit Provider Nurse Practitioner Family
DX: I50.9 Heart failure, unspecified (principal); R06.02 Shortness of breath; R06.01 Orthopnea; R60.0 Localized edema; I51.89 Other ill-defined heart diseases; I34.0 Nonrheumatic mitral (valve) insufficiency
CPT/HCPCS: 93306

== ENCOUNTER → 2025-06-19 09:53 | Outpatient (BNVA) | payer MEDICAID, SELFPAY | PROVIDERS: PCP Nurse Practitioner Family; Visit Provider Internal Medicine Cardiovascular Disease | DX: I42.9 Cardiomyopathy, unspecified (principal); I11.0 Hypertensive heart disease with heart failure; I50.22 Chronic systolic (congestive) heart failure; E66.9 Obesity, unspecified; Z68.43 Body mass index [BMI] 50.0-59.9, adult; R06.02 Shortness of breath; E78.5 Hyperlipidemia, unspecified | CPT/HCPCS: 99204 ==

== ENCOUNTER 2025-07-01 08:39 | Outpatient (CLI) | payer MEDICAID, SELFPAY ==
[2025-07-01 09:00] VITALS: BP 134/87; PULSE 100; RESP 18; TEMP 36.9; O2SAT 95; BMI 44.9
[2025-07-01 09:14] LABS: Hematocrit 49.7 % (37-53); Hemoglobin 16.10 g/dL (11.27-16.99); Mean Corpuscular HGB Conc 32.4 g/dL (30-55); Mean Corpuscular Hemoglobin 27.5 pg (27-33); Mean Corpuscular Volume 84.8 fl (82-101); Nucleated Red Blood Cells % 0 %; Platelet Count 139 10^3/cmm (157-399); Red Blood Count 5.86 10^6/uL (3.85-5.65); White Blood Count 10.98 10^3/uL (3.29-11.43)
[2025-07-01 09:41] LABS: Anion Gap 16.1 (5-19); Blood Urea Nitrogen 14 mg/dL (6-20); Calcium 9.7 mg/dL (8.5-10.5); Carbon Dioxide 25 mmol/L (22-29); Chloride 97 mmol/L (98-107); Glucose 126 mg/dL (65-115); Osmolality Calculated 280 mOsm/kg (285-295); Potassium 4.1 mmol/L (3.5-5.1); Sodium 134 mmol/L (136-145)
[2025-07-01 09:43] LABS: Slide Review Slide Review Perform
--- NOTE | 2025-07-01 10:25 | PC.NURSE ---
Procedure postponed Patient reports recent visit to [facility] ER Thursday 06/28 for nausea/vomiting . Pt reports is being treated for UTI and kidney stones with Cipro and tamsulosin. Patient reports not being able to keep anything down due to n/v. Creatinine this am is 1.3. Dr. Prabhakar spoke with patient and spouse to reschedule for a later date and time when resolved and kidney function is improved. Patient and spouse agree with the plan to follow up with PCP after antibiotic therapy completed.
--- NOTE | 2025-07-01 10:25 | PM.PN ---
Subjective Subjective: Today patient was brought in for left heart cath for severe LV dysfunction, he was noted to have abnormal renal function UTI/renal stone patient was throwing up all night with nausea vomiting. He appeared to be sick, patient was started on ciprofloxacin by [facility]. Since it is not urgency and elective procedure would like him to recover from UTI/renal stone, recheck renal function reveals normal and free of infection will reschedule patient. Vitals/I&O/Wt Last Vital Signs Temp 98.5 F 07/01/25 09:00 Pulse 100 07/01/25 09:00 Resp 18 07/01/25 09:00 BP 134/87 07/01/25 09:00 Pulse Ox 95 07/01/25 09:00 O2 Del Method Room Air 07/01/25 09:00 Weight last 48 hrs Weight 313 lb Data 07/01/25 09:05 07/01/25 09:05 A&P PDMP PDMP Reviewed: Not Reviewed Attestations Medical Necessity Statement*: Patient can be discharged home Coding Level of Care Code Acute Code for Chg Myrna
== END 2025-07-01 10:30 | disposition home or self-care (01) ==
PROVIDERS: PCP Nurse Practitioner Family; Visit Provider Internal Medicine Cardiovascular Disease
DX: Z53.8 Procedure and treatment not carried out for other reasons (principal)
CPT/HCPCS: 36415; 80048; 85025; J2250; J3010; J3490; J7030; J9999

== ENCOUNTER 2025-07-02 09:35 | Emergency (ER) | payer MEDICAID, SELFPAY ==
[2025-07-02 09:38] VITALS: BP 161/119; PULSE 120; RESP 22; TEMP 36.5; O2SAT 97
--- NOTE | 2025-07-02 09:45 | CT_ITS ---
WS: [id number] CT ABDOMEN AND PELVIS WITH CONTRAST HISTORY: Abdominal pain. History of kidney stones. TECHNIQUE: Imaging performed of the abdomen and pelvis with IV contrast. Single phase imaging of the abdomen. Coronal and sagittal reformats are submitted. All CT scans at [facility] use at least one of these dose optimization techniques: automated exposure control; mA and/or kV adjustment per patient size (includes targeted exams where dose is matched to clinical indication); or iterative reconstruction. IV CONTRAST: Omnipaque 350; 100 mL IV. Oral contrast: No DLP: 1269.13 mGy.cm COMPARISON: 05/06/2022 Lower thorax: Lung bases are clear. Mildly enlarged heart. No hiatal hernia. Liver/biliary system: Liver is normal in size. Mild heterogeneous echotexture throughout the liver is probably related to artifact from patient's body habitus. Portal vein is normally enhancing. No intrahepatic duct dilatation. Gallbladder: Normal. No gallstones or wall thickening. No pericholecystic fluid. Pancreas: Normal size pancreas and pancreatic duct. No adjacent inflammation. Spleen: Normal size spleen. No mass or infarct. Adrenal glands: Normal. Right kidney: Normal. Left kidney: Kidney is very slightly enlarged. Minimal perinephric stranding. There is delayed excretion and enhancement of the kidney. Moderate LEFT hydronephrosis and hydroureter. 4 mm calcification in the distal LEFT ureter. There is an additional calcification in the lower renal pelvis of the LEFT kidney measuring 7 mm. No abscess. Aorta: Normal. Lymphadenopathy: None. Free fluid: None. GI tract: Unremarkable. Abdominal wall: Unremarkable abdominal wall. No hernia. Pelvis: No free fluid or adenopathy within the pelvis. Minimally distended urinary bladder. Bones: Several sclerotic foci within the bones of the pelvis consistent with bone islands. CT/CT abdomen pelvis w con* [id number] IMPRESSION: 1. Moderate LEFT hydronephrosis and hydroureter secondary to a 4 mm calcificat ion in the distal LEFT ureter. 2. Mild enlargement with delayed excretion from the LEFT kidney. 3. No renal abscess. 4. Additional nonobstructing 7 mm stone in the lower pole LEFT kidney. 5. No GI tract obstruction. 6. No ascites.
--- NOTE | 2025-07-02 09:56 | W.ED.ABDPA2 ---
HPI - Abdominal Pain General: Chief Complaint: Abdominal Pain Stated Complaint: N/V L side Pain Can't go to the bathroom Time Seen by Provider: 07/02/25 09:40 Source: patient Mode of arrival: ambulatory Limitations: no limitations History of Present Illness: 50-year-old male states he is diagnosed with kidney stone 4 days ago states he is continue to have left-sided flank pain along with some left upper abdominal pain as well. It is pain sharp in nature rates an 8 out of 10 he has had some difficulty urinating as well. Denies any worse or improving factors. Related Data Home Medications ?Medication ?Instructions ?Recorded ?Confirmed venlafaxine 37.5 mg 37.5 mg PO DAILY 05/30/24 06/28/25 capsule,extended release 24 hr (Effexor XR) hydroxyzine HCl 10 mg tablet 10 mg PO BID PRN Anxiety 06/12/24 06/28/25 methocarbamol 500 mg tablet 500 mg PO TID PRN Muscle Spasm 06/13/24 06/28/25 omeprazole 20 mg capsule,delayed 20 mg PO DAILY 05/26/25 06/28/25 release venlafaxine 75 mg capsule,extended 75 mg PO DAILY 05/26/25 06/28/25 release 24 hr furosemide 20 mg tablet 20 mg PO BID 06/19/25 06/28/25 levothyroxine 25 mcg tablet 50 mcg PO DAILY 06/19/25 06/28/25 metoprolol succinate 25 mg 25 mg PO DAILY 06/19/25 06/28/25 tablet,extended release 24 hr ciprofloxacin HCl 500 mg tablet mg PO 07/01/25 (Cipro) tamsulosin 0.4 mg capsule 0.4 mg PO DAILY 07/01/25 07/01/25 Previous Rx's ?Medication ?Instructions ?Recorded Bone Growth Stimulator #1 ea 06/04/24 hydrocodone 5 mg-acetaminophen 325 1 tab PO .Q4-6H PRN pain 1 month 07/10/24 mg tablet #160 tabs diphenhydramine HCl 25 mg capsule 25 mg PO DIRECTED PRN allergy 06/19/25 (Benadryl) symptoms #2 caps prednisone 50 mg tablet 50 mg PO DIRECTED #3 tabs 06/19/25 sacubitril 24 mg-valsartan 26 mg 1 tab PO BID #180 tabs 06/19/25 tablet (Entresto) spironolactone 25 mg tablet 25 mg PO DAILY #90 tabs 06/19/25 naproxen 500 mg tablet (Naprosyn) 500 mg PO BID PRN pain #20 tabs 07/02/25 ondansetron 4 mg disintegrating 4 mg PO Q6H PRN nausea and 07/02/25 tablet vomiting #14 tabs Allergies Allergy/AdvReac Type Severity Reaction Status Date / Time Alpha-Gal Allergy Unknown Verified 06/28/25 09:49 ([id number]-Uzrug-8,3-Gala shellfish derived Allergy Unknown Verified 06/28/25 09:49 Review of Systems GI: Reports: abdominal pain PFSH ED PFSH: Medical History (Updated 07/02/25 @ 10:51 by Rhiannon Briggs MD) Hypertension Morbid obesity Diaphoresis Nausea & vomiting Abdominal pain Insomnia Hypertension Bronchitis Post-traumatic stress disorder, chronic Major depressive disorder, recurrent, in partial remission Chronic low back pain with sciatica Chronic fatigue disorder Surgical History No pertinent past surgical history Family History Grandfather Stroke Mother Heart problem Mother Congestive heart failure (CHF) Social History Smoking and tobacco/nicotine status: never used tobacco/nicotine Second hand smoke exposure: No Alcohol intake: never Substance/Drug Use: current Physical Exam Const: COMMON NORMALS: patient oriented x3 HENMT: COMMON NORMALS: normocephalic and atraumatic HEAD & SCALP: normocephalic and atraumatic Eye: COMMON NORMALS: conjunctivae normal CONJUNCTIVA: Yes conjunctivae normal Neck/C-Spine: COMMON NORMALS: full ROM and supple Chest: COMMONS NORMALS: normal inspection of the chest Resp: COMMON NORMALS: normal respiratory effort, No retractions, No use of accessory muscles and clear to auscultation bilaterally AUSCULTATION: clear to auscultation bilaterally Cardio: COMMON NORMALS: regular rhythm and No murmurs present (Cardio) RATE: tachycardic RHYTHM: regular rhythm GI: COMMON NORMALS: Normal to inspection, nondistended, normoactive bowel sounds present, Soft to palpation and no masses PALPATION: Yes Soft to palpation and Yes Tenderness to palpation present (GI) Details: LUQ Extremity: COMMON NORMALS: normal to inspection and full ROM Neuro: COMMON NORMALS: patient oriented x3, moves all extremities and no focal motor deficits Psych: COMMON NORMALS: mental status grossly normal, Normal thought process present and cooperative THOUGHT PROCESS: Normal thought process present Skin: COMMON NORMALS: no rashes or lesions noted and no wounds GENERAL SKIN EXAM: no rashes or lesions noted Course Vital Signs: Vital signs: Vital Signs Temperature 97.7 F 07/02/25 09:38 Pulse Rate 109 H 07/02/25 10:24 Respiratory Rate 22 H 07/02/25 09:38 Blood Pressure 161/119 07/02/25 10:24 Pulse Oximetry 95 07/02/25 10:24 MDM - Abdominal Pain Medical Decision Making Patient presents here with left flank and abdominal pain differential includes kidney stone, pyelonephritis, diverticulitis. CT scan here does show a 4 mm distal kidney stone. He has no signs of acute cystitis or pyelonephritis. His pain is resolved. Feels much improved. Will discharge him with a strainer will prescribe him Naprosyn along with Zofran. Will put in a referral to urology. He is to return if worsening I did go over all these findings with him and he understands agrees to plan. EKG interpreted by me at 0944 sinus tachycardia heart rate [address] elevation QRS 102 QTc 394 Medical Records I reviewed the patient's medical records. Lab Data I reviewed the patient's lab results. 07/02/25 09:52 07/02/25 09:52 Labs/Radiology: Radiology Impressions Abdomen/Pelvis CT 07/02/25 09:45 IMPRESSION: 1. Moderate LEFT hydronephrosis and hydroureter secondary to a 4 mm calcification in the distal LEFT ureter. 2. Mild enlargement with delayed excretion from the LEFT kidney. 3. No renal abscess. 4. Additional nonobstructing 7 mm stone in the lower pole LEFT kidney. 5. No GI tract obstruction. 6. No ascites. Laboratory Results WBC 15.82 10^3/uL (3.29-11.43) H 07/02/25 09:52 RBC 5.80 10^6/uL (3.85-5.65) H 07/02/25 09:52 Hgb 16.10 g/dL (11.27-16.99) 07/02/25 09:52 Hct 48.9 % (37-53) 07/02/25 09:52 MCV 84.3 fl (82-101) 07/02/25 09:52 MCH 27.8 pg (27-33) 07/02/25 09:52 MCHC 32.9 g/dL (30-55) 07/02/25 09:52 RDW 15.7 % (12.1-15.1) H 07/02/25 09:52 Plt Count 146 10^3/cmm (157-399) L 07/02/25 09:52 MPV 12.5 fL (7.4-10.4) H 07/02/25 09:52 Neut % (Auto) 82.6 % 07/02/25 09:52 Lymph % (Auto) 8.7 % 07/02/25 09:52 [place] % (Auto) 8.2 % 07/02/25 09:52 Eos % (Auto) 0.0 % 07/02/25 09:52 Baso % (Auto) 0.1 % 07/02/25 09:52 Neut # (Auto) 13.07 10^3/uL (1.8-7.7) H 07/02/25 09:52 Lymph # (Auto) 1.4 10^3/uL (0.8-4.8) 07/02/25 09:52 [place] # (Auto) 1.3 10^3/uL (0.2-0.9) H 07/02/25 09:52 Eos # (Auto) 0.0 10^3/uL (0.0-0.8) 07/02/25 09:52 Baso # (Auto) 0.0 10^3/uL (0.0-0.1) 07/02/25 09:52 Nucleated RBC % (auto) 0 % 07/02/25 09:52 Nucleated RBCs # 0.0 /100WBC 07/02/25 09:52 Sodium 134 mmol/L (136-145) L 07/02/25 09:52 Potassium 3.8 mmol/L (3.5-5.1) 07/02/25 09:52 Chloride 95 mmol/L (98-107) L 07/02/25 09:52 Carbon Dioxide 23 mmol/L (22-29) 07/02/25 09:52 Anion Gap 19.8 (5-19) H 07/02/25 09:52 BUN 21 mg/dL (6-20) H 07/02/25 09:52 Creatinine 1.5 mg/dL (0.7-1.2) H 07/02/25 09:52 GFR Calculation 49.3 mL/min (90-130) L 07/02/25 09:52 Glucose 131 mg/dL (65-115) H 07/02/25 09:52 Calculated Osmolality 283 mOsm/kg (285-295) L 07/02/25 09:52 Calcium 10.1 mg/dL (8.5-10.5) 07/02/25 09:52 Total Bilirubin 1.6 mg/dL (0.15-1.2) H 07/02/25 09:52 AST 17 U/L (0-40) 07/02/25 09:52 ALT 16 U/L (0-41) 07/02/25 09:52 Alkaline Phosphatase 67 U/L (40-130) 07/02/25 09:52 Total Protein 7.0 g/dL (6.6-8.7) 07/02/25 09:52 Albumin 4.3 g/dL (3.5-5.2) 07/02/25 09:52 Globulin 2.7 g/dL (1.3-4.6) 07/02/25 09:52 Lipase 20 U/L (13-60) 07/02/25 09:52 Urine Color Dark yellow (Yellow) A 07/02/25 10:15 Urine Appearance Clear (CLEAR) 07/02/25 10:15 Urine pH 5.5 (5-7) 07/02/25 10:15 Ur Specific [place] 1.060 (1.005-1.030) H 07/02/25 10:15 Urine Protein 2+ (Negative) A 07/02/25 10:15 Urine Glucose (UA) Negative (Normal) 07/02/25 10:15 Urine Ketones 1+ (Negative) H 07/02/25 10:15 Urine Blood 1+ (Negative) A 07/02/25 10:15 Urine Nitrate Negative (Negative) 07/02/25 10:15 Urine Bilirubin Negative (Negative) 07/02/25 10:15 Urine Urobilinogen 1.0 mg/dL (Negative) 07/02/25 10:15 Ur Leukocyte Esterase Negative (Negative) 07/02/25 10:15 Urine RBC 0-4 /hpf (0-2) H 07/02/25 10:15 Urine WBC Rare /hpf (0-5) 07/02/25 10:15 Ur Squamous Epith Cells 0-4 /hpf (0-5) H 07/02/25 10:15 Calcium Oxalate Crystal 25-40 /hpf H 07/02/25 10:15 Amorphous Sediment Not Reportable 07/02/25 10:15 Urine Bacteria 1+ /hpf (NONE) H 07/02/25 10:15 All radiology interpretation(s) finalized by discharge Discharge Plan Discharge Patient Disposition: Home Clinical Impression: Kidney stone Condition: Stable Prescriptions: New ondansetron 4 mg tablet,disintegrating 4 mg PO Q6H PRN (Reason: nausea and vomiting) Qty: 14 0RF naproxen [Naprosyn] 500 mg tablet 500 mg PO BID PRN (Reason: pain) Qty: 20 0RF No Action venlafaxine [Effexor XR] 37.5 mg capsule,extended release 24hr 37.5 mg PO DAILY Rx Instructions: along with 75mg capsule aq=048.5mg total metoprolol succinate 25 mg tablet extended release 24 hr 25 mg PO DAILY spironolactone 25 mg tablet 25 mg PO DAILY Qty: 90 0RF sacubitril-valsartan [Entresto] 24-26 mg tablet 1 tab PO BID Qty: 180 0RF diphenhydramine HCl [Benadryl] 25 mg capsule 25 mg PO DIRECTED PRN (Reason: allergy symptoms) Qty: 2 0RF Rx Instructions: Take 2 tablets 1 hour prior to procedure. prednisone 50 mg tablet 50 mg PO DIRECTED Qty: 3 0RF Rx Instructions: Take 1 tablet 13 hours prior to procedure, 1 tablet 7 hours prior to procedure, 1 tablet 1 hour prior to procedure. (DME) Bone Growth Stimulator See Rx Instructions .Route .MEDSUPPLY Qty: 1 0RF Rx Instructions: As directed hydrocodone-acetaminophen 5-325 mg tablet 1 tab PO .Q4-6H PRN (Reason: pain) 30 Days Qty: 160 0RF hydroxyzine HCl 10 mg tablet 10 mg PO BID PRN (Reason: Anxiety) methocarbamol 500 mg tablet 500 mg PO TID PRN (Reason: Muscle Spasm) venlafaxine 75 mg capsule,extended release 24hr 75 mg PO DAILY Rx Instructions: along with 37.5mg capsule xr=346.5mg total omeprazole 20 mg capsule,delayed release(DR/EC) 20 mg PO DAILY levothyroxine 25 mcg tablet 50 mcg PO DAILY furosemide 20 mg tablet 20 mg PO BID tamsulosin 0.4 mg Capsule 0.4 mg PO DAILY Rx Instructions: X7 days only. Started on 06/29. ciprofloxacin HCl [Cipro] 500 mg Tablet PO Rx Instructions: Patient unsure of dose or duration. Started 06/29 Discharge Orders: Discharge ED (Routine); Ordered 07/02/25 Ordered By: Rhiannon Briggs Referrals: Anita De La Torre NP [Primary Care Provider, Unknown] Discharge Diet: Advance as tolerated Discharge Activity: Resume usual activity Patient Instructions: Kidney Stones (ED) Print Language: Com[place]an Coding Level of Care Code ED Instructor [employer] for Philly Norris
[2025-07-02 10:01] LABS: Hematocrit 48.9 % (37-53); Hemoglobin 16.10 g/dL (11.27-16.99); Mean Corpuscular HGB Conc 32.9 g/dL (30-55); Mean Corpuscular Hemoglobin 27.8 pg (27-33); Mean Corpuscular Volume 84.3 fl (82-101); Nucleated Red Blood Cells % 0 %; Platelet Count 146 10^3/cmm (157-399); Red Blood Count 5.80 10^6/uL (3.85-5.65); White Blood Count 15.82 10^3/uL (3.29-11.43)
[2025-07-02] MEDS: iohexol 350 mg/mL 500 mL Btl (per mL) IV (10:01)
[2025-07-02 10:12] LABS: Alanine Aminotransferase 16 U/L (0-41); Albumin Level 4.3 g/dL (3.5-5.2); Alkaline Phosphatase 67 U/L (40-130); Anion Gap 19.8 (5-19); Aspartate Amino Transferase 17 U/L (0-40); Blood Urea Nitrogen 21 mg/dL (6-20); Calcium 10.1 mg/dL (8.5-10.5); Carbon Dioxide 23 mmol/L (22-29); Chloride 95 mmol/L (98-107); Globulin 2.7 g/dL (1.3-4.6); Glucose 131 mg/dL (65-115); Lipase 20 U/L (13-60); Osmolality Calculated 283 mOsm/kg (285-295); Potassium 3.8 mmol/L (3.5-5.1); Sodium 134 mmol/L (136-145); Total Protein 7.0 g/dL (6.6-8.7)
[2025-07-02] MEDS: morphine 4 mg/mL SDV 1 mL IVP (10:14)
[2025-07-02] MEDS: ondansetron 2 mg/ML SDV 2 mL 4 MG IVP (10:14)
[2025-07-02 10:24] VITALS: BP 161/119; PULSE 109; O2SAT 95
[2025-07-02 10:27] LABS: Slide Review Slide Review Perform
--- NOTE | 2025-07-02 10:31 | ECG_ITS ---
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 Measurements Intervals [place] Rate: 115 P: 60 AK: 179 QRS: -27 QRSD: 102 T: 64 QT: 326 QTc: 452 Interpretive Statements SINUS TACHYCARDIA LEFT ATRIAL ENLARGEMENT [-0.15mV P-WAVE IN V1/V2] BORDERLINE LEFT AXIS DEVIATION [QRS AXIS < -20] Compared to ECG 05/26/2025 11:18:40 T-wave abnormality no longer present Myocardial infarct finding no longer present Electronically Signed On 07-04-2025 17:33:53 CORPORATE TRAVEL COORDINATOR by Brittani Dc M.D. [id number]
[2025-07-02 10:33] LABS: Glucose Urine UA Negative (Normal); Nitrate Urine Negative (Negative)
[2025-07-02 10:36] LABS: Add Urine Microscopic? YES; Universal Test for UA Present (0)
[2025-07-02 10:48] LABS: Specific Gravity, Urine 1.060 (1.005-1.030); UA Manual Slide Review YES
[2025-07-02 11:08] VITALS: BP 161/119; PULSE 103; O2SAT 95
--- NOTE | 2025-07-04 09:29 | DCPLANNER ---
[facility]
== END 2025-07-02 11:11 | disposition home or self-care (01) ==
PROVIDERS: Emergency Provider Emergency Medicine; PCP Nurse Practitioner Family
DX: N20.0 Calculus of kidney (principal); N13.4 Hydroureter
CPT/HCPCS: 74177; 80053; 81001; 83690; 85025; 93005; 96374; 96375; 99285; J1885; J2270; J2405; J7030

== ENCOUNTER 2025-07-05 10:44 | Emergency (ER) | payer MEDICAID, SELFPAY ==
[2025-07-05] VITALS (19 sets, daily range): BP systolic 115–168; BP diastolic 75–115; PULSE 78–100; RESP 16–20; TEMP 36.6; O2SAT 94–99; BMI 45.3
--- NOTE | 2025-07-05 11:34 | XR_ITS ---
WS: [id number] XR chest 1V portable [id number] REASON FOR EXAM: epigastric pain FINDINGS: The chest is unchanged compared to the previous examination of 05/26/2025. There is moderate tortuosity of the thoracic aorta and cardiomegaly. Mild prominence of the central pulmonary veins. Calcified granulomatous disease bilaterally. No acute pulmonary parenchymal or pleural abnormality. No significant abnormality of the bony thorax. XR/XR chest 1V portable [id number] IMPRESSION: Stable chest without acute abnormality.
--- NOTE | 2025-07-05 11:35 | W.ED.ABDPA2 ---
Documented by User: NOEMY Angelo 07/05/25 17:32 HPI - Abdominal Pain General: Chief Complaint: Abdominal Pain Stated Complaint: Lt low abd pain Time Seen by Provider: 07/05/25 11:24 Source: patient and family Mode of arrival: ambulatory Limitations: no limitations History of Present Illness: Patient is a 50-year-old male who presents to ED today with a main complaint of epigastric pain. Patient states he has been diagnosed with a left ureter stone about a week or so ago. He states he has had at least 2 previous ED visits within the last week due to pain on the left side. He was here a few days ago and had a CT scan performed showing a 4 mm distal ureter stone. Patient states he has been taking naproxen and hydrocodone at home but feels like the hydrocodone is making him constipated. He does feel like the pain on the left side of his back/abdomen seems to be intermittent but overall not improving. His main complaint today is his epigastric pain. Family states he does have a history of intermittent epigastric pain that has led him, in the past, to undergo endoscopy. Has had GI cocktails before which have helped. No history of gastric ulcers. He does not drink alcohol. He does use cannabis nightly to help with sleep. Patient states he is having nausea and vomiting. No fevers. No episodes of hematemesis. MD elicited complaint: abdominal pain Pertinent past history: kidney stones Onset (ago): day(s) Pain Consistency: constant Location: Epigastric Severity: moderate Migration to: no migration Exacerbating factors: eating and other (drinking/medications) Relieving factors: nothing Associated Symptoms: Reports constipation, nausea and vomiting; Denies chills, dysuria, fever(s), hematochezia, hematuria, hematemesis and melena Related Data Home Medications ?Medication ?Instructions ?Recorded ?Confirmed venlafaxine 37.5 mg 37.5 mg PO DAILY 05/30/24 07/05/25 capsule,extended release 24 hr (Effexor XR) hydroxyzine HCl 10 mg tablet 10 mg PO BID PRN Anxiety 06/12/24 07/05/25 methocarbamol 500 mg tablet 500 mg PO TID PRN Muscle Spasm 06/13/24 07/05/25 omeprazole 20 mg capsule,delayed 20 mg PO DAILY 11/02/25 12/12/25 release venlafaxine 75 mg capsule,extended 75 mg PO DAILY 05/26/25 07/05/25 release 24 hr furosemide 20 mg tablet 20 mg PO BID 06/19/25 07/05/25 metoprolol succinate 25 mg 25 mg PO DAILY 06/19/25 07/05/25 tablet,extended release 24 hr ciprofloxacin HCl 500 mg tablet 500 mg PO BID 07/01/25 07/05/25 (Cipro) tamsulosin 0.4 mg capsule 0.4 mg PO DAILY 07/01/25 07/05/25 albuterol sulfate 90 mcg/actuation 2 puff inhalation Q4H PRN 07/05/25 07/05/25 aerosol inhaler Shortness Of Breath Or Wheezing levothyroxine 50 mcg tablet 50 mcg PO QAM 07/05/25 07/05/25 prochlorperazine maleate 10 mg 10 mg PO Q6H PRN Nausea And 07/05/25 07/05/25 tablet Vomiting Previous Rx's ?Medication ?Instructions ?Recorded Bone Growth Stimulator #1 ea 06/04/24 hydrocodone 5 mg-acetaminophen 325 1 tab PO .Q4-6H PRN pain 1 month 07/10/24 mg tablet #160 tabs sacubitril 24 mg-valsartan 26 mg 1 tab PO BID #180 tabs 06/19/25 tablet (Entresto) spironolactone 25 mg tablet 25 mg PO DAILY #90 tabs 06/19/25 naproxen 500 mg tablet (Naprosyn) 500 mg PO BID PRN pain #20 tabs 07/02/25 ondansetron 4 mg disintegrating 4 mg PO Q6H PRN nausea and 07/02/25 tablet vomiting #14 tabs Allergies Allergy/AdvReac Type Severity Reaction Status Date / Time Alpha-Gal Allergy Unknown Verified 07/05/25 11:14 (Epxyxznyf-Urxqq-3,3-Gala shellfish derived Allergy Unknown Verified 07/05/25 11:14 Review of Systems Const: Denies: fever(s), chills, body aches, fatigue or malaise ENMT: Denies: throat pain or odynophagia Card: Denies: chest pain Resp: Denies: dyspnea GI: Reports: abdominal pain, nausea, vomiting and constipation; Denies: hematemesis, hematochezia or melena : Denies: dysuria or hematuria Musc: Reports: back pain (L lower back); Denies: neck pain, extremity pain, extremity swelling, joint pain, joint swelling or joint redness Neuro: Denies: headache(s), numbness in extremities, weakness in extremities, sensory changes or dizziness PFSH ED PFSH: Medical History Hypertension Morbid obesity Diaphoresis Nausea & vomiting Abdominal pain Insomnia Hypertension Bronchitis Post-traumatic stress disorder, chronic Major depressive disorder, recurrent, in partial remission Chronic low back pain with sciatica Chronic fatigue disorder Surgical History No pertinent past surgical history Family History Grandfather Stroke Mother Heart problem Mother Congestive heart failure (CHF) Social History Smoking and tobacco/nicotine status: never used tobacco/nicotine Second hand smoke exposure: No Alcohol intake: never Substance/Drug Use: current Physical Exam Const: COMMON NORMALS: no acute distress, patient oriented x3, alert and well nourished GENERAL APPEARANCE: cooperative NUTRITIONAL APPEARANCE: obese morbidly obese (BMI 45.3) HENMT: COMMON NORMALS: normocephalic and atraumatic HEAD & SCALP: normocephalic and atraumatic Eye: COMMON NORMALS: no scleral icterus Neck/C-Spine: COMMON NORMALS: full ROM, no lymphadenopathy, supple and no meningeal signs Chest: COMMONS NORMALS: normal inspection of the chest Resp: COMMON NORMALS: normal respiratory effort and clear to auscultation bilaterally AUSCULTATION: clear to auscultation bilaterally Cardio: COMMON NORMALS: regular rate and regular rhythm RATE: regular rate RHYTHM: regular rhythm GI: COMMON NORMALS: Normal to inspection, nondistended, normoactive bowel sounds present, Soft to palpation, No hepatosplenomegaly present and no masses INSPECTION: Yes normal to inspection AUSCULTATION: Yes normoactive bowel sounds PALPATION: Yes Soft to palpation, Yes Tenderness to palpation present (GI) (epigastric), No Guarding due to palpation present (GI), No Rigid due to palpation and Yes No hepatosplenomegaly present : COMMON NORMALS: Yes no CVA tenderness BLADDER/KIDNEY EXAM: Yes no CVA tenderness Back/Pelvis: COMMON NORMALS: no CVA tenderness and thoracic and lumbar spine normal to inspection Extremity: COMMON NORMALS: normal to inspection GENERAL: Yes normal exam except as noted Neuro: COMMON NORMALS: patient oriented x3, moves all extremities, no focal motor deficits and no sensory deficits noted SENSORIUM/ORIENTATION: Yes alert MENINGEAL SIGNS: Yes no meningeal signs Skin: COMMON NORMALS: no rashes or lesions noted GENERAL SKIN EXAM: no rashes or lesions noted Course Consultations: Consultation #1: Dr. Weathers/Kayla [facility] hospitalist accepting patient; will have [facility] urologist, Dr. Velázquez who will consult on patient upon arrival Vital Signs: Vital signs: Vital Signs Temperature 98 F 07/05/25 11:07 Pulse Rate 79 07/05/25 17:30 Respiratory Rate 18 07/05/25 15:56 Blood Pressure 122/82 07/05/25 17:30 Pulse Oximetry 94 07/05/25 17:30 Oxygen Delivery Me thod Room Air 07/05/25 17:30 MDM - Abdominal Pain Medical Decision Making Patient is a 50-year-old male here for a main complaint of epigastric pain but also has continued pain to his left abdomen and back due to a known 4 to 5 mm ureter stone. Patient has had now 3 emergency department visits due to pain. His main complaint upon arrival today was epigastric pain. He had been taking naproxen at home and had received several IV Toradol doses over the last week or so for pain. He states he does have a history of intermittent gastritis and has previously underwent endoscopy for this. Suspect he has some degree of NSAID induced gastritis. He has had episodes of nausea and vomiting-none with hematemesis. Patient did get relief with a GI cocktail here as well as pain medications. He has intermittently been hypertensive which he attributes to pain. He has also not been able to keep down his blood pressure medications at home. Blood work here showing a normal white count. UA without evidence for infection. Concerning is his slow rise of his creatinine. It was 1.3 on 07/01, 1.5 on 07/02, and now 1.7. Baseline is 0.8. CT scan showing continued distal ureter stone without much migration. This is causing severe hydronephrosis. Pain does not seem well-controlled at home and now he is having nausea and vomiting. Patient will require urologic evaluation due to acute kidney injury in the setting of a ureter stone and continued pain along with nausea and vomiting. Spoke to Dr. Boudreaux who agrees with need to transfer. Did go ahead and perform cardiac evaluation here given his epigastric pain and his known known cardiac issues. I have spoken to [facility] team who is [facility] to consult on patient upon arrival. Medical Records I reviewed the patient's medical records. Lab Data I reviewed the patient's lab results. 07/05/25 11:35 07/05/25 11:35 Labs/Radiology: Radiology Impressions Chest X-Ray 07/05/25 11:34 IMPRESSION: Stable chest without acute abnormality. Abdomen/Pelvis CT 07/05/25 12:32 IMPRESSION: Continued obstruction of the distal left ureter by a 4 mm calculus, with significant hydronephrosis and moderate hydroureter. Minimal distal migration of the calculus. Laboratory Results WBC 10.45 10^3/uL (3.29-11.43) 07/05/25 11:35 RBC 6.13 10^6/uL (3.85-5.65) H 07/05/25 11:35 Hgb 16.70 g/dL (11.27-16.99) 07/05/25 11:35 Hct 52.3 % (37-53) 07/05/25 11:35 MCV 85.3 fl (82-101) 07/05/25 11:35 MCH 27.2 pg (27-33) 07/05/25 11:35 MCHC 31.9 g/dL (30-55) 07/05/25 11:35 RDW 15.4 % (12.1-15.1) H 07/05/25 11:35 Plt Count 128 10^3/cmm (157-399) L 07/05/25 11:35 MPV 11.8 fL (7.4-10.4) H 07/05/25 11:35 Neut % (Auto) 85.9 % 07/05/25 11:35 Lymph % (Auto) 7.2 % 07/05/25 11:35 [place] % (Auto) 4.9 % 07/05/25 11:35 Eos % (Auto) 0.9 % 07/05/25 11:35 Baso % (Auto) 0.8 % 07/05/25 11:35 Neut # (Auto) 8.99 10^3/uL (1.8-7.7) H 07/05/25 11:35 Lymph # (Auto) 0.8 10^3/uL (0.8-4.8) 07/05/25 11:35 [place] # (Auto) 0.5 10^3/uL (0.2-0.9) 07/05/25 11:35 Eos # (Auto) 0.1 10^3/uL (0.0-0.8) 07/05/25 11:35 Baso # (Auto) 0.1 10^3/uL (0.0-0.1) 07/05/25 11:35 Nucleated RBC % (auto) 0 % 07/05/25 11:35 Nucleated RBCs # 0.0 /100WBC 07/05/25 11:35 Sodium 139 mmol/L (136-145) 07/05/25 11:35 Potassium 4.1 mmol/L (3.5-5.1) 07/05/25 11:35 Chloride 100 mmol/L (98-107) 07/05/25 11:35 Carbon Dioxide 23 mmol/L (22-29) 07/05/25 11:35 Anion Gap 20.1 (5-19) H 07/05/25 11:35 BUN 18 mg/dL (6-20) 07/05/25 11:35 Creatinine 1.7 mg/dL (0.7-1.2) H 07/05/25 11:35 GFR Calculation 42.7 mL/min (90-130) L 07/05/25 11:35 Glucose 113 mg/dL (65-115) 07/05/25 11:35 Calculated Osmolality 291 mOsm/kg (285-295) 07/05/25 11:35 Calcium 9.2 mg/dL (8.5-10.5) 07/05/25 11:35 Total Bilirubin 1.2 mg/dL (0.15-1.2) 07/05/25 11:35 AST 13 U/L (0-40) 07/05/25 11:35 ALT 15 U/L (0-41) 07/05/25 11:35 Alkaline Phosphatase 75 U/L (40-130) 07/05/25 11:35 Troponin T Baseline 45 ng/L (0-15) H 07/05/25 11:35 Troponin T 60 Minute 32.75 ng/L (0-15) H 07/05/25 13:02 Delta Troponin T -12. ABS# (0-10) L 07/05/25 13:02 Total Protein 6.2 g/dL (6.6-8.7) L 07/05/25 11:35 Albumin 4.2 g/dL (3.5-5.2) 07/05/25 11:35 Globulin 2.0 g/dL (1.3-4.6) 07/05/25 11:35 Lipase 54 U/L (13-60) 07/05/25 11:35 Urine Color Dark yellow (Yellow) A 07/05/25 12:18 Urine Appearance Clear (CLEAR) 07/05/25 12:18 Urine pH 5.5 (5-7) 07/05/25 12:18 Ur Specific Miles 1.034 (1.005-1.030) H 07/05/25 12:18 Urine Protein 3+ (Negative) A 07/05/25 12:18 Urine Glucose (UA) Negative (Normal) 07/05/25 12:18 Urine Ketones 2+ (Negative) H 07/05/25 12:18 Urine Blood 1+ (Negative) A 07/05/25 12:18 Urine Nitrate Negative (Negative) 07/05/25 12:18 Urine Bilirubin 1+ (Negative) H 07/05/25 12:18 Urine Urobilinogen 1.0 mg/dL (Negative) 07/05/25 12:18 Ur Leukocyte Esterase Negative (Negative) 07/05/25 12:18 Urine RBC 6-10 /hpf (0-2) 07/05/25 12:18 Urine WBC 0-5 /hpf (0-5) 07/05/25 12:18 Ur Squamous Epith Cells 0-5 /hpf (0-5) 07/05/25 12:18 Amorphous Sediment Not Reportable 07/05/25 12:18 Urine Bacteria None seen /hpf (NONE) 07/05/25 12:18 Hyaline Casts 4.52 /lpf 07/05/25 12:18 All radiology interpretation(s) finalized by discharge Discharge Plan Discharge Patient Disposition: Xfer Short-Term Hosp Clinical Impression: Calculus of left ureter, Acute kidney injury, Post-renal acute kidney injury Gastritis Qualifiers: Gastritis type: unspecified gastritis Chronicity: acute Gastritis bleeding: without bleeding Qualified Code(s): K29.00 - Acute gastritis without bleeding Condition: Stable Referrals: Anita De La Torre CIA[facility]OLDER [Primary Care Provider, Unknown] Patient Instructions: Abdominal Pain (ED) Print Language: Palestinian Coding Level of Care Code ED Obgyn Nurse for Chg Fwd Documented by User: Valentine Boudreaux MD 07/05/25 17:40 HPI - Abdominal Pain General: Chief Complaint: Abdominal Pain Stated Complaint: Lt low abd pain Time Seen by Provider: 07/05/25 11:24 Related Data Home Medications ?Medication ?Instructions ?Recorded ?Confirmed venlafaxine 37.5 mg 37.5 mg PO DAILY 05/30/24 07/05/25 capsule,extended release 24 hr (Effexor XR) hydroxyzine HCl 10 mg tablet 10 mg PO BID PRN Anxiety 06/12/24 07/05/25 methocarbamol 500 mg tablet 500 mg PO TID PRN Muscle Spasm 06/13/24 07/05/25 omeprazole 20 mg capsule,delayed 20 mg PO DAILY 05/26/25 07/05/25 release venlafaxine 75 mg capsule,extended 75 mg PO DAILY 05/26/25 07/05/25 release 24 hr furosemide 20 mg tablet 20 mg PO BID 06/19/25 07/05/25 metoprolol succinate 25 mg 25 mg PO DAILY 06/19/25 07/05/25 tablet,extended release 24 hr ciprofloxacin HCl 500 mg tablet 500 mg PO BID 07/01/25 07/05/25 (Cipro) tamsulosin 0.4 mg capsule 0.4 mg PO DAILY 07/01/25 07/05/25 albuterol sulfate 90 mcg/actuation 2 puff inhalation Q4H PRN 07/05/25 07/05/25 aerosol inhaler Shortness Of Breath Or Wheezing levothyroxine 50 mcg tablet 50 mcg PO QAM 07/05/25 07/05/25 prochlorperazine maleate 10 mg 10 mg PO Q6H PRN Nausea And 07/05/25 07/05/25 tablet Vomiting Previous Rx's ?Medication ?Instructions ?Recorded Bone Growth Stimulator #1 ea 06/04/24 hydrocodone 5 mg-acetaminophen 325 1 tab PO .Q4-6H PRN pain 1 month 07/10/24 mg tablet #160 tabs sacubitril 24 mg-valsartan 26 mg 1 tab PO BID #180 tabs 06/19/25 tablet (Entresto) spironolactone 25 mg tablet 25 mg PO DAILY #90 tabs 06/19/25 naproxen 500 mg tablet (Naprosyn) 500 mg PO BID PRN pain #20 tabs 07/02/25 ondansetron 4 mg disintegrating 4 mg PO Q6H PRN nausea and 07/02/25 tablet vomiting #14 tabs Allergies Allergy/AdvReac Type Severity Reaction Status Date / Time Alpha-Gal Allergy Unknown Verified 07/05/25 11:14 (Zspiqwcnx-Qzeds-0,3-Gala shellfish derived Allergy Unknown Verified 07/05/25 11:14 PFSH ED PFSH: Medical History Hypertension Morbid obesity Diaphoresis Nausea & vomiting Abdominal pain Insomnia Hypertension Bronchitis Post-traumatic stress disorder, chronic Major depressive disorder, recurrent, in partial remission Chronic low back pain with sciatica Chronic fatigue disorder Surgical History No pertinent past surgical history Family History Grandfather Stroke Mother Heart problem Mother Congestive heart failure (CHF) Social History Smoking and tobacco/nicotine status: never used tobacco/nicotine Second hand smoke exposure: No Alcohol intake: never Substance/Drug Use: current Course Vital Signs: Vital signs: Vital Signs Temperature 98 F 07/05/25 11:07 Pulse Rate 79 07/05/25 17:30 Respiratory Rate 18 07/05/25 15:56 Blood Pressure 122/82 07/05/25 17:30 Pulse Oximetry 94 07/05/25 17:30 Oxygen Delivery Me thod Room Air 07/05/25 17:30 MDM - Abdominal Pain Medical Decision Making Patient is a 50-year-old male here for a main complaint of epigastric pain but also has continued pain to his left abdomen and back due to a known 4 to 5 mm ureter stone. Patient has had now 3 emergency department visits due to pain. His main complaint upon arrival today was epigastric pain. He had been taking naproxen at home and had received several IV Toradol doses over the last week or so for pain. He states he does have a history of intermittent gastritis and has previously underwent endoscopy for this. Suspect he has some degree of NSAID induced gastritis. He has had episodes of nausea and vomiting-none with hematemesis. Patient did get relief with a GI cocktail here as well as pain medications. He has intermittently been hypertensive which he attributes to pain. He has also not been able to keep down his blood pressure medications at home. Blood work here showing a normal white count. UA without evidence for infection. Concerning is his slow rise of his creatinine. It was 1.3 on 07/01, 1.5 on 07/02, and now 1.7. Baseline is 0.8. CT scan showing continued distal ureter stone without much migration. This is causing severe hydronephrosis. Pain does not seem well-controlled at home and now he is having nausea and vomiting. Patient will require urologic evaluation due to acute kidney injury in the setting of a ureter stone and continued pain along with nausea and vomiting. Spoke to Dr. Boudreaux who agrees with need to transfer. Did go ahead and perform cardiac evaluation here given his epigastric pain and his known known cardiac issues. [facility] to consult on patient upon arrival. The case was discussed with the midlevel provider. Evaluation and management service: I agree with the evaluation and management decisions made in this patient's care. Results interpretation: I agree with the study interpretation in this patient's care, I agree with the documentation of the study interpretation. Lab Data 07/05/25 11:35 07/05/25 11:35 Labs/Radiology: Radiology Impressions Chest X-Ray 07/05/25 11:34 IMPRESSION: Stable chest without acute abnormality. Abdomen/Pelvis CT 07/05/25 12:32 IMPRESSION: Continued obstruction of the distal left ureter by a 4 mm calculus, with significant hydronephrosis and moderate hydroureter. Minimal distal migration of the calculus. Laboratory Results WBC 10.45 10^3/uL (3.29-11.43) 07/05/25 11:35 RBC 6.13 10^6/uL (3.85-5.65) H 07/05/25 11:35 Hgb 16.70 g/dL (11.27-16.99) 07/05/25 11:35 Hct 52.3 % (37-53) 07/05/25 11:35 MCV 85.3 fl (82-101) 07/05/25 11:35 MCH 27.2 pg (27-33) 07/05/25 11:35 MCHC 31.9 g/dL (30-55) 07/05/25 11:35 RDW 15.4 % (12.1-15.1) H 07/05/25 11:35 Plt Count 128 10^3/cmm (157-399) L 07/05/25 11:35 MPV 11.8 fL (7.4-10.4) H 07/05/25 11:35 Neut % (Auto) 85.9 % 07/05/25 11:35 Lymph % (Auto) 7.2 % 07/05/25 11:35 [place] % (Auto) 4.9 % 07/05/25 11:35 Eos % (Auto) 0.9 % 07/05/25 11:35 Baso % (Auto) 0.8 % 07/05/25 11:35 Neut # (Auto) 8.99 10^3/uL (1.8-7.7) H 07/05/25 11:35 Lymph # (Auto) 0.8 10^3/uL (0.8-4.8) 07/05/25 11:35 [place] # (Auto) 0.5 10^3/uL (0.2-0.9) 07/05/25 11:35 Eos # (Auto) 0.1 10^3/uL (0.0-0.8) 07/05/25 11:35 Baso # (Auto) 0.1 10^3/uL (0.0-0.1) 07/05/25 11:35 Nucleated RBC % (auto) 0 % 07/05/25 11:35 Nucleated RBCs # 0.0 /100WBC 07/05/25 11:35 Sodium 139 mmol/L (136-145) 07/05/25 11:35 Potassium 4.1 mmol/L (3.5-5.1) 07/05/25 11:35 Chloride 100 mmol/L (98-107) 07/05/25 11:35 Carbon Dioxide 23 mmol/L (22-29) 07/05/25 11:35 Anion Gap 20.1 (5-19) H 07/05/25 11:35 BUN 18 mg/dL (6-20) 07/05/25 11:35 Creatinine 1.7 mg/dL (0.7-1.2) H 07/05/25 11:35 GFR Calculation 42.7 mL/min (90-130) L 07/05/25 11:35 Glucose 113 mg/dL (65-115) 07/05/25 11:35 Calculated Osmolality 291 mOsm/kg (285-295) 07/05/25 11:35 Calcium 9.2 mg/dL (8.5-10.5) 07/05/25 11:35 Total Bilirubin 1.2 mg/dL (0.15-1.2) 07/05/25 11:35 AST 13 U/L (0-40) 07/05/25 11:35 ALT 15 U/L (0-41) 07/05/25 11:35 Alkaline Phosphatase 75 U/L (40-130) 07/05/25 11:35 Troponin T Baseline 45 ng/L (0-15) H 07/05/25 11:35 Troponin T 60 Minute 32.75 ng/L (0-15) H 07/05/25 13:02 Delta Troponin T -. ABS# (0-10) L 07/05/25 13:02 Total Protein 6.2 g/dL (6.6-8.7) L 07/05/25 11:35 Albumin 4.2 g/dL (3.5-5.2) 07/05/25 11:35 Globulin 2.0 g/dL (1.3-4.6) 07/05/25 11:35 Lipase 54 U/L (13-60) 07/05/25 11:35 Urine Color Dark yellow (Yellow) A 07/05/25 12:18 Urine Appearance Clear (CLEAR) 07/05/25 12:18 Urine pH 5.5 (5-7) 07/05/25 12:18 Ur Specific Miles 1.034 (1.005-1.030) H 07/05/25 12:18 Urine Protein 3+ (Negative) A 07/05/25 12:18 Urine Glucose (UA) Negative (Normal) 07/05/25 12:18 Urine Ketones 2+ (Negative) H 07/05/25 12:18 Urine Blood 1+ (Negative) A 07/05/25 12:18 Urine Nitrate Negative (Negative) 07/05/25 12:18 Urine Bilirubin 1+ (Negative) H 07/05/25 12:18 Urine Urobilinogen 1.0 mg/dL (Negative) 07/05/25 12:18 Ur Leukocyte Esterase Negative (Negative) 07/05/25 12:18 Urine RBC 6-10 /hpf (0-2) 07/05/25 12:18 Urine WBC 0-5 /hpf (0-5) 07/05/25 12:18 Ur Squamous Epith Cells 0-5 /hpf (0-5) 07/05/25 12:18 Amorphous Sediment Not Reportable 07/05/25 12:18 Urine Bacteria None seen /hpf (NONE) 07/05/25 12:18 Hyaline Casts 4.52 /lpf 07/05/25 12:18 Discharge Plan Discharge Patient Disposition: Xfer Short-Term Hosp Clinical Impression: Calculus of left ureter, Acute kidney injury, Post-renal acute kidney injury Gastritis Qualifiers: Gastritis type: unspecified gastritis Chronicity: acute Gastritis bleeding: without bleeding Qualified Code(s): K29.00 - Acute gastritis without bleeding Condition: Stable Referrals: Anita De La Torre NP [Primary Care Provider, Unknown] Patient Instructions: Abdominal Pain (ED) Print Language: Palestinian Coding Level of Care Code ED Obgyn Nurse for Philly Norris
--- NOTE | 2025-07-05 11:38 | ECG_ITS ---
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1975 Requested By: Liseth Puckett Order Number: [id number] Reading MD: AMEE GUERRERO Measurements Intervals [place] Rate: 98 P: 49 CA: 190 QRS: -35 QRSD: 100 T: 21 QT: 385 QTc: 492 Interpretive Statements SINUS RHYTHM WITH OCCASIONAL VENTRICULAR PREMATURE COMPLEXES LEFT ATRIAL ENLARGEMENT [-0.15mV P-WAVE IN V1/V2] LEFT AXIS DEVIATION [QRS AXIS < -30] Compared to ECG 07/02/2025 09:44:25 Ventricular premature complex(es) now present Sinus tachycardia no longer present Electronically Signed On 07-05-2025 18:29:46 EDUCATION TECHNICIAN by AMEE GUERRERO [email or web address]
[2025-07-05] MEDS: lidocaine 2% viscous 15 ML, aluminum-mag hydrox-simethicon 30 ML, sucralfate oral liq 1 GM PO ×2 (11:39→12:44)
[2025-07-05 11:46] LABS: Hematocrit 52.3 % (37-53); Hemoglobin 16.70 g/dL (11.27-16.99); Mean Corpuscular HGB Conc 31.9 g/dL (30-55); Mean Corpuscular Hemoglobin 27.2 pg (27-33); Mean Corpuscular Volume 85.3 fl (82-101); Nucleated Red Blood Cells % 0 %; Platelet Count 128 10^3/cmm (157-399); Red Blood Count 6.13 10^6/uL (3.85-5.65); White Blood Count 10.45 10^3/uL (3.29-11.43)
[2025-07-05] MEDS: ondansetron 2 mg/ML SDV 2 mL 4 MG IVP ×2 (12:00→18:04)
[2025-07-05 12:09] LABS: Alanine Aminotransferase 15 U/L (0-41); Albumin Level 4.2 g/dL (3.5-5.2); Alkaline Phosphatase 75 U/L (40-130); Aspartate Amino Transferase 13 U/L (0-40); Blood Urea Nitrogen 18 mg/dL (6-20); Calcium 9.2 mg/dL (8.5-10.5); Carbon Dioxide 23 mmol/L (22-29); Chloride 100 mmol/L (98-107); Globulin 2.0 g/dL (1.3-4.6); Glucose 113 mg/dL (65-115); Lipase 54 U/L (13-60); Osmolality Calculated 291 mOsm/kg (285-295); Sodium 139 mmol/L (136-145); Total Protein 6.2 g/dL (6.6-8.7)
[2025-07-05 12:10] LABS: Troponin(5th) Baseline 45 ng/L (0-15)
[2025-07-05 12:11] LABS: Anion Gap 20.1 (5-19); Potassium 4.1 mmol/L (3.5-5.1)
[2025-07-05] MEDS: pantoprazole 40 mg SDV IVP (12:19)
[2025-07-05] MEDS: morphine 4 mg/mL SDV 1 mL IVP ×4 (12:19→19:44)
[2025-07-05 12:31] LABS: Glucose Urine UA Negative (Normal); Nitrate Urine Negative (Negative)
--- NOTE | 2025-07-05 12:32 | CT_ITS ---
WS: [id number] CT kidney stone [id number] REASON FOR EXAM: L ureter stone; now epigastric pain IV CONTRAST ADMINISTERED: None. TECHNIQUE: Multiple axial images were obtained through the abdomen and pelvis without intravenous contrast enhancement. Coronal and sagittal reconstructions obtained. COMPARISON EXAMINATION: CT scan of the abdomen and pelvis with contrast 07/02/2025. TOTAL EXAM DLP: 1263.[address] scans at [facility] use at least one of these dose optimization techniques: automated exposure control; mA and/or kV adjustment per patient size (includes targeted exams where dose is matched to clinical indication); or iterative reconstruction. FINDINGS: Previously demonstrated left intrarenal calculus is unchanged. There continues to be significant hydronephrosis of the left kidney with moderate hydroureter which contains dilute contrast. The obstructing calculus in the distal left ureter is again demonstrated only about 4 to 5 mm distal to its position on the last examination. The remainder of the examination of the abdomen and pelvis is unchanged with no other acute abnormality. CT/CT kidney stone [id number] IMPRESSION: Continued obstruction of the distal left ureter by a 4 mm calculus, with signif icant hydronephrosis and moderate hydroureter. Minimal distal migration of the calculus.
[2025-07-05 12:34] LABS: Add Urine Microscopic? YES
--- NOTE | 2025-07-05 12:34 | ECG_ITS ---
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
[2025-07-05 12:35] LABS: Specific Gravity, Urine 1.034 (1.005-1.030)
[2025-07-05] MEDS: metoprolol tartrate 1 mg/1 mL SDV 5 mL 5 MG IVP (12:45)
[2025-07-05] MEDS: labetalol 5 mg/mL SDV 20mL 20 MG IVP ×2 (14:17→19:20)
[2025-07-05] MEDS: metoclopramide 5 mg/mL SDV 2 mL 10 MG IVP (14:20)
--- NOTE | 2025-07-05 15:57 | PC.NURSE ---
Pt report called to [facility] pt transfer for urology. Report called to Sunita Lennon RN at 1555. would like phone call when pt leaves for [facility] @ [phone].
[2025-07-05 18:49] LABS: Troponin 5 6HR 39.63 ng/L (0-15)
[2025-07-05 18:50] LABS: Troponin 5 6HR Delta -5.37 ng/L (0-12)
== END 2025-07-05 20:20 | disposition short-term general hospital (02) ==
PROVIDERS: Emergency Provider Physician Assistant; PCP Nurse Practitioner Family
DX: N20.1 Calculus of ureter (principal); Z87.442 Personal history of urinary calculi; N17.8 Other acute kidney failure; K29.00 Acute gastritis without bleeding; I10 Essential (primary) hypertension
CPT/HCPCS: 36415; 71045; 74176; 80053; 81001; 83690; 84484; 85025; 93005; 96361; 96374; 96375; 96376; 99285; J2270; J2405; J2470; J2765; J3490; J7030; J9999